=== PATIENT | male | born 1940 | race Caucasian/White ===

== ENCOUNTER 2017-07-15 14:25 | Inpatient (IN) | payer MEDICARE ==
--- NOTE | 2017-07-15 15:20 | RAD ---
HISTORY: Shortness of breath COMPARISONS: None VIEWS: 1: frontal portable view of the chest at 3:00 PM FINDINGS: LINES AND TUBES: None. CARDIOMEDIASTINAL SILHOUETTE: The cardiomediastinal silhouette is normal for portable technique. PLEURA: The costophrenic angles are sharp. No pleural abnormalities are noted. LUNG PARENCHYMA: There is patchy alveolar opacification of the right upper lung and right lower lung. ABDOMEN: The upper abdomen is clear. There is no subphrenic gas. BONES AND SOFT TISSUES: No bone or soft tissue abnormalities are noted. IMPRESSION: PATCHY AIRSPACE DISEASE OF THE RIGHT LUNG. RECOMMEND FOLLOW-UP UNTIL RESOLUTION TO EXCLUDE UNDERLYING PULMONARY PARENCHYMAL PATHOLOGY.
[2017-07-15 16:07] LABS: INR 1.48 (0.77-1.02)
[2017-07-15 16:11] LABS: EGFR Non-African American 21.8 (>60)
[2017-07-15 16:17] LABS: ABS Basophils 0.1 10^3/ul (0-0.2); ABS Eosinophils 0 10^3/ul (0-0.6); ABS Lymphocytes 1.1 10^3/ul (1.0-4.8); ABS Monocytes 1.1 10^3/ul (0-0.8); ABS Neutrophils 18.7 10^3/ul (1.5-7.7); ABS Nucleated RBC 0 10^3/ul; Eosinophil % 0.1 % (0-6); Hematocrit 30 % (42-52); Hemoglobin 9.6 g/dl (14.0-18.0); Mean Corpuscular HGB Conc 32 g/dl (31-36); Mean Corpuscular Hemoglobin 33 pg (27-31); Mean Corpuscular Volume 102 fL (80-94); Mean Platelet Volume 9 um3 (7.4-10.4); Nucleated Red Blood Cells % 0.1; Platelet Count 608 10^3/ul (150-450); Red Blood Count 2.91 10^6/ul (4.0-5.4); Red Cell Distribution Width 23 % (10.5-15)
[2017-07-15] MEDS ORDERED: Vancomycin(*) 1,000 MG in NS 0.9% 250 ML* 250 ML IVPB ONE (18:05)
[2017-07-15] MEDS ORDERED: Vancomycin per Pharmacy* NOTE FOLLOW UP PRN (18:12)
[2017-07-15] MEDS ORDERED: Dextrose 50% Syringe 50 ML* 25 GM/50 ML SYRINGE IV PUSH PRN ×2 (18:18→19:39)
[2017-07-15] MEDS ORDERED: NS 0.9% 1000 ML* 1,000 ML IV ONE (18:24)
[2017-07-15 19:10] LABS: EGFR Non-African American 20.3 (>60)
[2017-07-15] MEDS ORDERED: Insulin REGULAR(*) 1 UNITS UNIT IV PUSH ONE (19:39)
[2017-07-15] MEDS ORDERED: Calcium Gluconate INJ* 1 GM in NS 0.9% 100 ML* 100 ML IVPB ONE (19:41)
[2017-07-15] MEDS ORDERED: NS 0.9% 1000 ML* 2,000 ML IV ONE (19:41)
[2017-07-15] MEDS ORDERED: D5W 50 ML BAG* 50 ML ONE (20:05)
--- NOTE | 2017-07-15 20:06 | ED ---
Jorge Jordan Jennifer, scribed for Clarke Franco MD on 07/15/17 at 1450 . Shortness of Breath - HPI Summary HPI Summary: The patient is a 77 year old male who presents with shortness of breath that has worsened for the past week. The patient was in the ICU for 11 days with pneumonia and recently released three days ago. He complains that he has gotten weaker since he left the ICU and any movement aggravates his shortness of breath. The patient additionally complains of some swelling in the legs to the knees that has gotten better. - History of Current Complaint Chief Complaint: EDShortnessOfBreath Time Seen by Provider: 07/15/17 14:38 Hx Obtained From: Patient Onset/Duration: Lasting Weeks - one week, Still Present, Worse Since Timing: Constant Current Severity: Moderate Aggrevating Factors: Movement Alleviating Factors: Nothing Associated Signs & Symptoms: Negative - Fever, Edema - Allergy/Home Medications Allergies/Adverse Reactions: Allergies Allergy/AdvReac Type Severity Reaction Status Date / Time No Known Allergies Allergy Verified 07/15/17 16:03 Home Medications: Home Medications Aspirin Low Dose CHEW TAB* [Aspirin Low Dose TAB*] 81 mg PO DAILY 07/15/17 [ History Confirmed 07/15/17] Atorvastatin* [Lipitor*] 20 mg PO DAILY 07/15/17 [History Confirmed 07/15/17] Cefpodoxime (NF) [Vantin 200 MG TAB (NF)] 200 mg PO BID 07/15/17 [History Confirmed 07/15/17] Folic Acid TAB* [Folvite TAB*] 1 mg PO DAILY 07/15/17 [History Confirmed ] Glipizide/Metformin HCl [Glipizide/Metformin HCl 2.5-250 mg] 1 tab PO BID [History Confirmed 07/15/17] Metoprolol Succinate XL TAB* [Toprol XL TAB*] 50 mg PO DAILY 07/15/17 [History Confirmed 07/15/17] Nitroglycerin TAB 0.4 MG* 0.4 mg SL Q5M PRN 07/15/17 [History Confirmed 07/15/17 ] Pantoprazole TAB (NF) [Protonix TAB (NF)] 40 mg PO DAILY 07/15/17 [History Confirmed 07/15/17] Sitagliptin (NF) [Januvia (NF)] 50 mg PO DAILY 07/15/17 [History Confirmed 07/15] Torsemide TAB* [Demadex*] 10 mg PO DAILY 07/15/17 [History Confirmed 07/15/17] PMH/Surg Hx/FS Hx/Imm Hx Endocrine/Hematology History: Reports: Hx Diabetes Cardiovascular History: Denies: Hx Hypertension - Immunization History Date of Tetanus Vaccine: UTD Date of Influenza Vaccine: UTD Infectious Disease History: No Infectious Disease History: Denies: Traveled Outside the [place] in Last 30 Days - Family History Known Family History: Positive: Hypertension, Diabetes - Social History Alcohol Use: None Substance Use Type: Reports: None Smoking Status (MU): Former Smoker Review of Systems Positive: Other - Feeling weak. Negative: Fever Positive: Shortness Of Breath Positive: Edema All Other Systems Reviewed And Are Negative: Yes Physical Exam - Summary Physical Exam Summary: Appearance: The patient is pale in no acute distress and in no acute pain. Skin: The skin is warm and dry and skin color is pale. HEENT: ~The head is normocephalic and atraumatic. The pupils are equal and reactive. The conjunctivae are clear and without drainage. ~Nares are patent and without drainage. ~Mouth reveals moist mucous membranes and the throat is without erythema and exudate. ~The external ears are intact. The ear canals are patent and without drainage. The tympanic membranes are intact. Neck: the neck is supple with full range of motion and non-tender. There are no carotid bruits. ~There is no neck vein distension. Respiratory: Chest is non-tender. ~There are crackles at both bases. Cardiovascular: The patient is tachypnic but not tachycardic. Heart is regular rate and rhythm. ~There is no murmur or rub auscultated. ~~There is no peripheral edema and pulses are symmetrical and equal. Abdomen: The abdomen is soft and non-tender. ~There are normal bowel sounds heard in all four quadrants and there is no organomegaly palpated. Musculoskeletal: There is no back tenderness noted. ~Extremities are non-tender with full range of motion. ~There is good capillary refill. ~There is no peripheral edema or calf tenderness elicited. Neurological: Patient is alert and oriented to person, place and time. ~The patient has symmetrical motor strength in all four extremities. ~Cranial nerves are grossly intact. Deep tendon reflexes are symmetrical and equal in all four extremities. Psychiatric: The patient has an appropriate affect and does not exhibit any anxiety or depression. Triage Information Reviewed: Yes Vital Signs On Initial Exam: Initial Vitals Temp Pulse Resp BP Pulse Ox 98.1 F 86 30 102/50 100 1218 14:31 18 14:31 18 14:31 18 14:31 18 14:31 Vital Signs Reviewed: Yes Diagnostics - Vital Signs Vital Signs Temp Pulse Resp BP Pulse Ox 07/15/17 14:31 98.1 F 86 30 102/50 100 - Laboratory Lab Results: Lab Results 07/15/17 07/15/17 07/15/17 Range/Units 15:09 15:09 15:09 WBC 21.0 H (3.5-10.8) 10^3/ul RBC 2.91 L (4.0-5.4) 10^6/ul Hgb 9.6 L (14.0-18.0) g/dl Hct 30 L (42-52) % MCV 102 H (80-94) fL MCH 33 H (27-31) pg MCHC 32 (31-36) g/dl RDW 23 H (10.5-15) % Plt Count 608 H (150-450) 10^3/ul MPV 9 (7.4-10.4) um3 Neut % (Auto) 89.2 H (38-83) % Lymph % (Auto) 5.0 L (25-47) % Centre % (Auto) 5.4 (1-9) % Eos % (Auto) 0.1 (0-6) % Baso % (Auto) 0.3 (0-2) % Absolute Neuts (auto) 18.7 H (1.5-7.7) 10^3/ul Absolute Lymphs (auto) 1.1 (1.0-4.8) 10^3/ul Absolute Monos (auto) 1.1 H (0-0.8) 10^3/ul Absolute Eos (auto) 0 (0-0.6) 10^3/ul Absolute Basos (auto) 0.1 (0-0.2) 10^3/ul Absolute Nucleated RBC 0 10^3/ul Nucleated RBC % 0.1 INR (Anticoag Therapy) (0.77-1.02) D-Dimer, Quantitative (Less Than 230) ng/mL Sodium 133 (133-145) mmol/L Potassium 5.9 H (3.5-5.0) mmol/L Chloride 96 L (101-111) mmol/L Carbon Dioxide 14 L* (22-32) mmol/L Anion Gap 23 H (2-11) mmol/L BUN 59 H (6-24) mg/dL Creatinine 2.84 H (0.67-1.17) mg/dL Est GFR ( Amer) 28.0 (>60) Est GFR (Non-Af Amer) 21.8 (>60) BUN/Creatinine Ratio 20.8 H (8-20) Glucose 321 H (70-100) mg/dL Lactic Acid (0.5-2.0) mmol/L Calcium 9.7 (8.6-10.3) mg/dL Total Bilirubin 2.90 H (0.2-1.0) mg/dL AST 542 H (13-39) U/L ALT 332 H (7-52) U/L Alkaline Phosphatase 90 (34-104) U/L Troponin I 0.78 H* (<0.04) ng/mL C-Reactive Protein 33.82 H (< 5.00) mg/L B-Natriuretic Peptide 3684 H ( - 100) pg/mL Total Protein 7.4 (6.4-8.9) g/dL Albumin 3.6 (3.2-5.2) g/dL Globulin 3.8 (2-4) g/dL Albumin/Globulin Ratio 0.9 L (1-3) 07/15/17 07/15/17 Range/Units 15:09 15:09 WBC (3.5-10.8) 10^3/ul RBC (4.0-5.4) 10^6/ul Hgb (14.0-18.0) g/dl Hct (42-52) % MCV (80-94) fL MCH (27-31) pg MCHC (31-36) g/dl RDW (10.5-15) % Plt Count (150-450) 10^3/ul MPV (7.4-10.4) um3 Neut % (Auto) (38-83) % Lymph % (Auto) (25-47) % Centre % (Auto) (1-9) % Eos % (Auto) (0-6) % Baso % (Auto) (0-2) % Absolute Neuts (auto) (1.5-7.7) 10^3/ul Absolute Lymphs (auto) (1.0-4.8) 10^3/ul Absolute Monos (auto) (0-0.8) 10^3/ul Absolute Eos (auto) (0-0.6) 10^3/ul Absolute Basos (auto) (0-0.2) 10^3/ul Absolute Nucleated RBC 10^3/ul Nucleated RBC % INR (Anticoag Therapy) 1.48 H (0.77-1.02) D-Dimer, Quantitative > 1050 H (Less Than 230) ng/mL Sodium (133-145) mmol/L Potassium (3.5-5.0) mmol/L Chloride (101-111) mmol/L Carbon Dioxide (22-32) mmol/L Anion Gap (2-11) mmol/L BUN (6-24) mg/dL Creatinine (0.67-1.17) mg/dL Est GFR ( Amer) (>60) Est GFR (Non-Af Amer) (>60) BUN/Creatinine Ratio (8-20) Glucose (70-100) mg/dL Lactic Acid 11.5 H* (0.5-2.0) mmol/L Calcium (8.6-10.3) mg/dL Total Bilirubin (0.2-1.0) mg/dL AST (13-39) U/L ALT (7-52) U/L Alkaline Phosphatase (34-104) U/L Troponin I (<0.04) ng/mL C-Reactive Protein (< 5.00) mg/L B-Natriuretic Peptide ( - 100) pg/mL Total Protein (6.4-8.9) g/dL Albumin (3.2-5.2) g/dL Globulin (2-4) g/dL Albumin/Globulin Ratio (1-3) Result Diagrams: 07/15/17 15:09 07/15/17 18:32 Lab Statement: Any lab studies that have been ordered have been reviewed, and results considered in the medical decision making process. - Radiology CXR Xray Interpretation: Positive (See Comments) - PATCHY AIRSPACE DISEASE OF THE RIGHT LUNG. RECOMMEND FOLLOW-UP UNTIL RESOLUTION TO EXCLUDE UNDERLYING PULMONARY PARENCHYMAL PATHOLOGY. Dr. Franco has reviewed this report. Radiology Interpretation Completed By: Radiologist - EKG 15:59 Cardiac Rate: NL EKG Rhythm: Sinus Rhythm - 79 BPM EKG Interpretation: RBBB, diffuse ST depressions Course/Dx - Course Course Of Treatment: Mr. Hinson presented with SOB after a recent admission in [place]. He was tachypneic on arrival but his lung exam revealed on bibasilar crackles. Labs showed that he was quite acidotic with new onset of renal failure and tranaminase elevations. The source of his problems was not clear. He is being admitted to the hospitalist service. Dr. Hamilton came and performed an echo in the ED. - Diagnoses Provider Diagnoses: Metabolic acidosis, Acute renal failure, Elevated transaminase level - Critical Care Time Critical Care Time: 30-74 min Discharge - Discharge Plan Condition: Good Disposition: ADMITTED TO [facility] The documentation as recorded by the Jorge armenta Jennifer accurately reflects the service I personally performed and the decisions made by me, Clarke Franco MD.
[2017-07-15] MEDS ORDERED: Sodium Polystyrene ORAL.SOL* 15 GM/60 ML BTL PO ONE (20:09)
[2017-07-15] MEDS: Cefepime(*) 1 GM in D5W 50 ML BAG* 50 ML IVPB SCH (20:10)
[2017-07-15] MEDS ORDERED: Sodium Bicarbonate 8.4% IV* 50 ML VIAL IV ONE ×2 (20:10→20:13)
--- NOTE | 2017-07-15 20:26 | RAD ---
INDICATION: Sepsis COMPARISON: None. TECHNIQUE: Multidetector CT images of the chest, abdomen and pelvis were obtained from the lung apices to the ischial tuberosities without intravenous contrast . CHEST: There is a large right lung base pleural effusion. There is pleural-based density along the anterior margin of the right lung apex. Lungs exhibit diffuse groundglass opacification as well as centrilobular emphysematous changes. There is bronchiectatic dilatation of the airways. There is no mediastinal or hilar lymphadenopathy. There is coarse calcification of the coronary arteries, aortic ring and arch of the aorta. This calcification extends into the proximal portions of the great vessels branching off of the arch of the aorta. ABDOMEN & PELVIS: There is a small amount of perihepatic fluid. There are no focal liver masses. The spleen, pancreas and adrenal glands are grossly normal in appearance. The gallbladder is normal. The right kidney is normal in appearance without focal mass, calcification or signs of hydronephrosis. There is either scarring or surgical material adjacent to the superior and anterior portion of the right kidney. There is no definite hydronephrosis bilaterally. A Isabel catheter is in the urinary bladder decompressing the bladder and preventing more thorough evaluation. Evaluation of the gastrointestinal tract is limited without oral contrast. The small and large bowel are not pathologically dilated. There is thickening of the colon wall involving the ascending colon to the hepatic flexure (axial image 93) measuring up to 1.1 cm in thickness. More distally there is gas and stool in the colon. There are rectosigmoid diverticula but none exhibit focal inflammatory change. The appendix is likely identified in the base of the cecum measuring 5 mm in diameter (axial image 96). There is infiltration of the peritoneal fat adjacent to the ascending colon and hepatic flexure. There is scattered peritoneal ascites. There is more confluent ascites in the deep pelvis. There are scattered peritoneal soft tissue nodules measuring up to 9 mm in greatest dimension (for example axial image 76). The prostate is not well visualized. There is an infrarenal abdominal aortic aneurysm measuring approximately 3.5 x 3.3 cm in greatest dimension, most reliably measured in the sagittal and coronal planes (sagittal image 40 and coronal image 39). There is coarse atherosclerotic calcification of the abdominal aorta extending into the bilateral iliac arteries and seen as far as the bilateral common femoral arteries. There are no sinister bone lesions. IMPRESSION: 1. There is pleural-based density along the anterior margin of the right lung apex with a moderate right-sided pleural effusion. There are groundglass opacifications throughout the emphysematous lungs. Pneumonia versus right upper lobe malignancy should be considered in the differential diagnosis. Alternatively fluid overload/congestive heart failure could yield groundglass opacification and right pleural effusion. 2. Scattered peritoneal ascites as well as peritoneal soft tissue nodules. There is a segment of wall thickening involving the ascending colon and hepatic flexure. Colon cancer is a diagnostic possibility. Alternatively infectious, inflammatory or an ischemic etiology could also be considered. 3. Calcified atherosclerosis of the visualized arterial system including a 3.5 cm infrarenal abdominal aortic aneurysm. 4. Additional chronic, degenerative and possibly postsurgical changes described in the body the report.
[2017-07-15] MEDS ORDERED: Insulin LISPRO* 1 UNITS UNIT SUBCUT SCH (21:00)
[2017-07-15] MEDS: Sodium Bicarbonate 8.4% IV* 100 MEQ in D5W 1000 ML BAG* 1,000 ML IVPB SCH (21:19)
[2017-07-15] MEDS ORDERED: Sodium Polystyrene ORAL.SOL* 15 GM/60 ML BTL ONE (21:27)
--- NOTE | 2017-07-15 21:49 | HP ---
HISTORY AND PHYSICAL: DATE OF ADMISSION: 07/15/17 PRIMARY CARE PROVIDER: Dr. Garcia in [place], [place]. HEALTHCARE PROXY: His son as well as his daughter, Nathaly Benitez. CODE STATUS: Full. SOURCE OF INFORMATION: History obtained from interview with the son and patient , review of partial past medical records. RELIABILITY: Fair. HISTORY OF PRESENT ILLNESS: This is a 77-year-old man with past medical history of an DE in 1994 with no known stents, CHF, type 2 diabetes, hypertension, hyperlipidemia, and history of bladder cancer, status post removal and currently receiving BCG therapy, who had been visiting his daughter in [place] approximately 2 weeks prior to presentation, started to notice increasing lower extremity edema, then developed shortness of breath and fatigue , who presented to [facility] in [place], where he was critically ill and admitted to the intensive care unit, required intubation. The patient' s discharge instructions from that time indicate he had sepsis, pneumonia, CHF, acute kidney failure, diabetes and anemia. Son indicates that he was on broad spectrum antibiotics, but they were frustrated because they could not culture any specific bacteria. He was extubated of CPAP, was performing well with physical therapy and discharged on the after being admitted on 07/06/17. He is now in [place] with his son where he was seen by visiting nursing, who noticed him to have shortness of breath again and be weak and was sent to [facility] for evaluation. The patient denies any nausea, vomiting, chest pain, diarrhea, constipation, bright red blood per rectum, melena, or headache. He has noted increasing lower extremity swelling since discharge as well as orthopnea, but no cough, fevers, chills, night sweats. No burning with urination, but has noted urinary frequency as well as urgency in the absence of any foul odor. In the emergency room, he was found with profound lactic acidosis and the hospitalist service was consulted for admission. PAST MEDICAL HISTORY: Recent admission for sepsis and pneumonia, CHF, acute kidney failure, diabetes and anemia. Past medical history further includes type 2 diabetes, CHF, CAD with an DE in 1994. No stenting. Hyperlipidemia, hypertension, bladder cancer, status post removal, currently receiving BCG, partial nephrectomy. MEDICATIONS: From his discharge on the include: 1. Aspirin 81 mg daily. 2. Atorvastatin 20 mg daily. 3. Cefpodoxime 200 mg twice daily. 4. Folic acid daily. 5. Combination glipizide/metformin 5/500 one tab twice daily. 6. Metoprolol XL 50 mg daily. 7. Sublingual nitroglycerin. 8. Pantoprazole 40 mg daily. 9. Sitagliptin 50 mg daily. 10. Torsemide 10 mg daily. ALLERGIES: No known drug allergies. FAMILY HISTORY: Mother and father with CAD and diabetes. SOCIAL HISTORY: Many years of smoking, potentially approximately 60 pack per year, quit in April. Previous heavy drinking in his 30s. REVIEW OF SYSTEMS: As per HPI, otherwise all other systems negative. PHYSICAL EXAMINATION GENERAL: Ill-appearing man, lying 30 degrees in bed, interactive, tachypneic, but no apparent distress, talks in full sentences, not using accessory muscles of respiration. VITAL SIGNS: In the emergency room, blood pressure 105/60, heart rate 81, respiratory rate is between 40 and 50, 100% on 4 L oxygen. T-max is 98.1. HEENT: Oropharynx is clear. He has extremely dry mucous membranes. NECK: He has non-elevated JVD. No supraclavicular or cervical lymphadenopathy. LUNGS: His lungs are clear to auscultation. HEART: His heart rate is tachycardic without appreciable murmur, rubs, or gallops. ABDOMEN: Soft, nontender, nondistended. EXTREMITIES: Cool with delayed cap refill. 1 to 2+ lower extremity edema to above his knees. NEUROLOGIC: He is A and O x3. His cranial nerves II through XII are intact. He has no apparent anxiety, agitation, or depression. LABORATORY DATA: Labs reviewed. White blood cell count is 21,000. All labs compared to the 9th of discharge, on discharge, it was 8.0; hemoglobin 9.6, on discharge 8.3; platelets 608,000, on discharge 442. INR is 1.48, on discharge 1.5. BUN is 59, creatinine is 2.8, on discharge 27 and 1.6. Bicarb is 14, on discharge 26. Lactic acid is 11.5. Total bilirubin 2.9, AST 543, ALT 332. Troponin I 0.78, BNP 363,684. Pro-BNP on previous hospital stay was 8700. DIAGNOSTIC DATA: Reviewed. Chest x-ray; patchy airspace disease of the right lung. Recommend followup until resolution. EKG: The patient has [address] elevations in V1, aVR, 2 mm in V2, 1 mm in V3 with [address] depressions in V5, V6, II, III, aVF and lead 1. No prior for comparison. ASSESSMENT AND PLAN: This is a 77-year-old man, recent hospital stay from 07/06 through 07/12/17 at [facility], where he was presumably treated for sepsis secondary to pneumonia complicated by respiratory failure, now presenting with profound tachypnea/acute respiratory failure, worsening kidney failure, increased liver enzymes, and profound lactic acidosis. Sepsis. Concern for sepsis given elevated leukocytosis, tachypnea, lactic acidosis. Blood cultures collected, collecting urine now, check for flu. Start vancomycin with cefepime. The patient was at least on vancomycin on the last hospital stay given his vanco levels that are part of his lab results. 1 L of fluid at this time, although his fluid status is tenuous and I am concerned that he may be in cardiogenic shock. CT chest as well as CT abdomen and pelvis. Respiratory failure. ABG is pending. Placed on BIPAP given his profound tachypnea. Dr. Hamilton to assist with limited bedside echo to evaluate EF. I am concerned that the patient is in cardiogenic shock at this point, although difficult to make that assumption without further evidence at this time. More information will be forthcoming with repeat lactic acid, troponin, and limited echocardiogram. Lactic acidosis, potentially contributing with metformin with renal failure. Holding metformin, repeat lactic acid now 1 L fluid now. I am holding additional fluid beyond that liter for aforementioned above reasons of unknown EF and concern for cardiogenic shock. Repeat BMP with next lactic to evaluate bicarbonate level. pH pending with current ABG that has been collected. Acute kidney injury. Again, potentially cardiorenal, although urinary tract infection is potential given frequency and urgency as well as prerenal in the setting of decreased fluid intake and recent diuresis. Placing Isabel catheter, 1 L fluid now, follow. Elevated troponins. I suspect demand, although EKG is nonreassuring. Follow troponin. We will not heparinize at this time unless troponin continues to rise. The patient has been chest pain free for the entirety of his presentation. Elevated liver enzymes, appears to be a congestive hepatopathy. We will check CT abdomen and pelvis as he cannot receive ultrasound of right upper quadrant at this time as he is not fasting. DVT prophylaxis. Heparin subcu. [id number]/[facility] #: [id number] MTDD
[2017-07-15] MEDS: Heparin VIAL(*) 5000 UNITS/ML VIAL (FIVE THOUSAND) SUBCUT SCH (22:27)
[2017-07-15 23:35] LABS: Hematocrit 25 % (42-52); Hemoglobin 8.2 g/dl (14.0-18.0); Mean Corpuscular HGB Conc 33 g/dl (31-36); Mean Corpuscular Hemoglobin 34 pg (27-31); Mean Corpuscular Volume 103 fL (80-94); Mean Platelet Volume 9 um3 (7.4-10.4); Platelet Count 430 10^3/ul (150-450); Red Blood Count 2.45 10^6/ul (4.0-5.4); Red Cell Distribution Width 23 % (10.5-15); White Blood Count 17.5 10^3/ul (3.5-10.8)
--- NOTE | 2017-07-15 23:58 | PN ---
Progress Note - Progress Note Date of Service: 07/15/17 Note: Sign out from Dr. Lopez - Repeat labs showed hyperkalemia and lactic acidosis worsening from earlier labs. Calcium gluconate, D50, insulin and kayexylate ordered. Spoke with Dr. Kaminski and Dr. Alba - thought was that this may be metformin toxicity driving the lactate. Patient did have an episode of hypoxia and increase in RR when moving onto bedpan. S/s improved with adjustment in BiPAP settings. Two amps of bicarb and bicarb drive started on patient. Likely underlying CHF and ?PNA vs malignancy. Needs outpatient workup for abnormalities on bowel wall thickening - patient had colonoscopy a year ago. Reviewed results with son and patient. Son states pleural effusion was there before, may worsen with IVFs and may benefit from therapuetic/diagnostic thoracentesis. Will attempt transition to salter if he removes stable from a respiratory standpoint. Monitor labs [id number].
[2017-07-16] MEDS ORDERED: Insulin LISPRO* 1 UNITS UNIT SUBCUT ONE ×3 (00:21→21:10)
[2017-07-16] MEDS ORDERED: Dextrose 50% Syringe 50 ML* 25 GM/50 ML SYRINGE IV PUSH PRN ×4 (00:21→21:10)
[2017-07-16] MEDS ORDERED: Sodium Polystyrene ORAL.SOL* 15 GM/60 ML BTL PO SCH (03:00)
[2017-07-16 03:43] LABS: EGFR Non-African American 22.3 (>60)
[2017-07-16] MEDS: Heparin VIAL(*) 5000 UNITS/ML VIAL (FIVE THOUSAND) SUBCUT SCH ×3 (05:58→22:43)
[2017-07-16] MEDS: Cefepime(*) 1 GM in D5W 50 ML BAG* 50 ML IVPB SCH ×2 (05:58→18:27)
[2017-07-16] MEDS ORDERED: Vancomycin Random Level* NOTE FOLLOW UP ONE (06:00)
[2017-07-16 06:56] LABS: ABS Basophils 0.1 10^3/ul (0-0.2); ABS Eosinophils 0 10^3/ul (0-0.6); ABS Lymphocytes 0.9 10^3/ul (1.0-4.8); ABS Monocytes 0.6 10^3/ul (0-0.8); ABS Neutrophils 14.1 10^3/ul (1.5-7.7); ABS Nucleated RBC 0 10^3/ul; Eosinophil % 0.1 % (0-6); Hematocrit 23 % (42-52); Hemoglobin 7.7 g/dl (14.0-18.0); Lymphocyte % 5.7 % (25-47); Mean Corpuscular HGB Conc 34 g/dl (31-36); Mean Corpuscular Hemoglobin 33 pg (27-31); Mean Corpuscular Volume 99 fL (80-94); Mean Platelet Volume 9 um3 (7.4-10.4); Nucleated Red Blood Cells % 0.1; Platelet Count 387 10^3/ul (150-450); Red Blood Count 2.32 10^6/ul (4.0-5.4); Red Cell Distribution Width 22 % (10.5-15); White Blood Count 15.6 10^3/ul (3.5-10.8)
[2017-07-16 07:03] LABS: INR 1.65 (0.77-1.02)
[2017-07-16 07:12] LABS: EGFR Non-African American 22.5 (>60)
[2017-07-16] MEDS ORDERED: Vancomycin 1500 MG IV - x ONCE IVPB ONE ×2 (09:00)
--- NOTE | 2017-07-16 09:50 | ECHO ---
Patient: RAE MACHADO [facility] Rec#: [id number] : 1940 Date: 07/16/2017 Age: 77y Height: 175.3 cm / 69.0 in Weight: 70.3 kg / 154.9 lbs Sex: M BSA: 1.85 Room#: ICU 4 Admit Date#: 07/15/2017 Type: Inpatient Referring: Marquise Lopez MD Reading: Phillip Hamilton MD Tax Auditor: Anat Romeo RN RDCS CC: Mike Holly MD Transthoracic Echocardiogram Indication: CHF BP: 92/48 HR: 82 Rhythm: NSR with PACs Findings History: CAD, [place] in 1994, CHF, DM, HTN, HLD, former smoker, recent pneumonia Technical Comments: The study quality is fair. The study is technically limited due to the patient's smoking history. Completed at 0930. Left Ventricle: The left ventricular chamber size is mildly dilated. There is no left ventricular hypertrophy. There are multiple regional wall motion abnormalities. There is severely decreased left ventricular systolic function. The estimated ejection fraction is 25-30%. Abnormal left ventricular diastolic function is observed. Left Atrium: The left atrium is mildly dilated. Right Ventricle: The right ventricular cavity size is normal. The right ventricular global systolic function is low normal. Right Atrium: The right atrium is mildly dilated. Aortic Valve: The aortic valve structure is not well visualized. The aortic valve is trileaflet. The aortic valve leaflets are moderately thickened. Systolic excursion of the aortic valve cusps is reduced. There is mild to moderate aortic regurgitation. There is moderate aortic stenosis. The mean gradient of the aortic valve is 8.4 mmHg. The peak instantaneous gradient of the aortic valve is 15 mmHg. The aortic valve area, by peak velocities, is calculated at 1 cm2. The aortic valve area, by VTI's, is calculated at 0.9 cm2. The measured aortic regurgitation pressure half-time is 448 msec. Mitral Valve: The mitral valve leaflets are mildly thickened. There is moderate to severe mitral regurgitation. There is no evidence of mitral stenosis. Tricuspid Valve: The tricuspid valve leaflets are normal. There is moderate to severe tricuspid regurgitation. There is evidence of severe pulmonary hypertension. There is no tricuspid stenosis. Pulmonic Valve: The pulmonic valve structure is not well visualized. There is a trace pulmonic regurgitation. There is no pulmonic stenosis. Pericardium: There is no significant pericardial effusion. Aorta: The ascending aorta is not well visualized. The aortic arch is not well visualized. There is no dilation of the aortic root. Pulmonary Artery: The main pulmonary artery is not well visualized. Venous: The inferior vena cava is dilated. There is less than 50% respiratory change in the inferior vena cava dimension. Summary: There was not any prior study for comparison. Conclusions There is severely decreased left ventricular systolic function. There are multiple regional wall motion abnormalities. The estimated ejection fraction is 25-30%. The right ventricular global systolic function is low normal. The right atrium is mildly dilated. Systolic excursion of the aortic valve cusps is reduced. There is moderate aortic stenosis. The mean gradient of the aortic valve is 8.4 mmHg. The aortic valve area, by VTI's, is calculated at 0.9 cm2. There is moderate to severe mitral regurgitation. There is moderate to severe tricuspid regurgitation. There is evidence of severe pulmonary hypertension. There is no significant pericardial effusion. Measurements Name Value Normal Range RVDdMajor (2D) 3.4 cm (2.2 - 4.4) RVAW (2D) 0.7 cm (0.2 - 0.5) RAd ISD 4CH 5 cm (3.4 - 4.9) RA (A4C)W 5.1 cm (2.9 - 4.6) IVSd (2D) 0.9 cm (0.6 - 1) LVPWd (2D) 1 cm (0.6 - 1) LVIDd (2D) 6 cm (3.6 - 5.4) LVIDs (2D) 5.4 cm - LV FS (2D) 10 % (25 - 45) Aortic Annulus 1.8 cm (1.4 - 2.6) Ao root diameter (2D) 2.8 cm (2.1 - 3.5) LA dimension (AP) 2D 3.4 cm (2.3 - 3.8) LAd ISD 4CH 5.8 cm (2.9 - 5.3) LA ISD 4CH W 4 cm (2.5 - 4.5) Name Value Normal Range LA ESV SP 4CH (A/L) 58 ml - LA ESV SP 2CH (A/L) 84 ml - LA ESV BP (A/L) 76 ml - LA ESV BP (A/L) index 41 ml/m2 - LA ESV SP 4CH (MOD) 54 ml - LA ESV SP 2CH (MOD) 79 ml - LV mass (2D) 234.2 g - LV mass (2D) index 126.59 g/m2 - Name Value Normal Range MV E-wave Vmax 1.1 m/sec - MV deceleration time 178 msec - MV A-wave Vmax 0.92 m/sec - MV E:A ratio 1.2 ratio - LV septal e' Vmax 0.04 m/sec - LV lateral e' Vmax 0.04 m/sec - LV E:e' septal ratio 27.5 ratio - LV E:e' lateral ratio 27.5 ratio - Name Value Normal Range AV Vmax 1.9 m/sec - AV VTI 39 cm - AV peak gradient 15 mmHg - AV mean gradient 8.4 mmHg - LVOT diameter 2 cm - LVOT Vmax 0.59 m/sec - LVOT VTI 11.3 cm - LVOT peak gradient 1.4 mmHg - LVOT mean gradient 0.73 mmHg - DOI (VTI) 0.29 ratio - DOI (Vmax) 0.31 ratio - SV LVOT 35.3 ml - CO LVOT 2.9 l/min - Cardiac index 1.6 l/min/m2 - MAXWELL (continuity Vmax) 1 cm2 - MAXWELL (continuity VTI) 0.9 cm2 - AR PHT 448 msec - Name Value Normal Range MR Vmax 4.58 m/sec - MR VTI 144 cm - MR volume (PISA) 57.6 ml - MR flow (PISA) 183 ml/sec - MR ERO 0.4 cm2 - MR PISA radius 0.9 cm - MR alias Vmax 36 cm/sec - Name Value Normal Range TR Vmax 4.2 m/sec - TR peak gradient 71 mmHg - RAP 15 mmHg - RVSP 86 mmHg - IVC diameter 2.6 cm - Name Value Normal Range PV Vmax 0.74 m/sec -
[2017-07-16] MEDS: Insulin GLARGINE(*) 1 UNITS UNIT SUBCUT SCH (09:56)
[2017-07-16] MEDS: Insulin LISPRO* 1 UNITS UNIT SUBCUT SCH ×6 (09:57→18:26)
[2017-07-16] MEDS: Atorvastatin* 20 MG TAB PO SCH (09:58)
[2017-07-16] MEDS: Aspirin Low Dose CHEW TAB* 81 MG PO SCH (09:58)
[2017-07-16] MEDS: Folic Acid TAB* 1 MG PO SCH (09:58)
[2017-07-16] MEDS: Omeprazole CAP* 20 MG PO SCH (09:58)
--- NOTE | 2017-07-16 11:08 | RAD ---
INDICATION: Lower extremity swelling evaluate for deep venous thrombosis. COMPARISON: There are no prior studies available for comparison. TECHNIQUE: Multiple real-time, color flow and Doppler tracings of both lower extremities were obtained. FINDINGS: The common femoral, femoral, profunda femoral and popliteal veins all demonstrate normal compressibility, augmentation with compression and phasic response with respiration. The posterior tibial and peroneal veins demonstrate normal compressibility and augmentation with compression. IMPRESSION: NO EVIDENCE FOR DEEP VENOUS THROMBOSIS.
[2017-07-16] MEDS ORDERED: Sodium Bicarbonate 8.4% IV* 100 MEQ in D5W 1000 ML BAG* 1,000 ML IVPB SCH (11:39)
--- NOTE | 2017-07-16 11:49 | PN ---
Progress Note - Progress Note Date of Service: 07/16/17 Note: CCM Progress Note Discussed by phone twice with dr William last PM Patient sitting up vigorously eating his breakfast Reports...."feel a hell of a lot better than I did yesterday" SBP 90-100 HR 78 RR 26 SpO2 100 (NC) Skin no diaphoresis, no cyanosis Sclerae anicteric, pupils equal Oral mucosa pink Neck supple Lungs with good air entry bilat, rare fine wheeze Cor RRR no rub, no murmur Abd soft, active, nontender Ext no signif edema, no cord, no calf tenderness LUE with PIV x2 K 3.9 BUN/Creat 59/2.6 Alb 2.7 Lact 4.5 WBC 15.6 Hgb 7.7 Plt 387 INR 1.65 Venous Dopplers of legs...no DVT ECHO LVEF 25-30%, RV function at low end of normal, pulmonary HTN, mod-severe MR, mod aortic stenosis IMP: Respiratory Distress...function of lactic acidosis and frailty with poor clinical reserve in face of suspected pneumonia and cardiomyopathy.....subsided Lactic Acidosis resolving gradually....suspect hypovolemia with cardiomyopathy plus/minus Metformin toxicity in face of AMANDA AMANDA with hyperkalemia and metabolic acidosis....improved indices with hydration including bicarb gtt Hyperkalemia....resolved Possible RUL pneumonia....on broad Abx, leucocytosis subsided...history of recent pneumonia and respiratory failure Anemia...suspect chronic...adequate Hgb 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 team T>30 min, [facility] services rendered
[2017-07-16 16:17] LABS: Hematocrit 23 % (42-52); Hemoglobin 7.9 g/dl (14.0-18.0); Mean Corpuscular HGB Conc 34 g/dl (31-36); Mean Corpuscular Hemoglobin 33 pg (27-31); Mean Corpuscular Volume 98 fL (80-94); Mean Platelet Volume 9 um3 (7.4-10.4); Platelet Count 408 10^3/ul (150-450); Red Blood Count 2.37 10^6/ul (4.0-5.4); Red Cell Distribution Width 22 % (10.5-15); White Blood Count 17.6 10^3/ul (3.5-10.8)
--- NOTE | 2017-07-16 20:19 | CONS ---
CC: Marquise Lopez MD * CARDIOLOGY CONSULTATION: DATE OF CONSULT: 07/16/17 REASON FOR CONSULT: Congestive heart failure, cardiomyopathy. HISTORY OF PRESENT ILLNESS: The patient is a 77-year-old gentleman with a history of diabetes, hypertension, coronary artery disease who was admitted to the hospital with congestive heart failure. The patient was admitted to the hospital in [place] at the end of June for a very similar presentation. The patient had a sudden onset of shortness of breath. He was brought to the emergency room, was intubated for his congestive heart failure. At that time, an echocardiogram showed an ejection fraction of 30%, mild mitral regurgitation , moderate to severe tricuspid regurgitation, mild aortic stenosis. He had a pulmonary artery pressure of 75 mmHg. The patient was treated for his congestive heart failure, placed on appropriate medications and discharged home. The patient is originally from [place]. He is currently visiting the [facility] with his son. The patient and son state that the patient was getting more short of breath yesterday morning and throughout the day became progressively dyspneic, finally brought him to the emergency room in the afternoon, where he was found to be in congestive heart failure. He was placed on BiPAP machine, given diuretics, which improved his respiratory status. Today , the patient is on 2 L oxygen. The patient is talking in full sentences. The patient states that he feels quite well. He feels much better than he did yesterday. He has an appetite. He denies any angina. He denies any palpitations. He denies any episodes of lightheadedness, dizziness or syncope. PAST MEDICAL HISTORY: Significant for: 1. Congestive heart failure. 2. Renal insufficiency. 3. Diabetes. 4. Bladder cancer. 5. Hypertension. 6. Hyperlipidemia. PAST SURGICAL HISTORY: 1. Partial nephrectomy. 2. Bladder tumor removals. During this recent hospitalization in [place], he was diagnosed with sepsis and pneumonia as well as congestive heart failure. MEDICATIONS: His outpatient medications include, 1. Aspirin 81 mg a day. 2. Atorvastatin 20 mg a day. 3. 200 mg b.i.d. 4. Glipizide/metformin 5/500 b.i.d. 5. Metoprolol 50 mg b.i.d. 6. Pantoprazole 40 mg a day. 7. Torsemide 10 mg a day. 8. Januvia 50 mg a day. ALLERGIES: No known drug allergies. FAMILY HISTORY: Noncontributory. SOCIAL HISTORY: The patient is a previous smoker. He quit over a year ago. Denies any alcohol. He is currently retired. He usually spends his sanchez in [place]. PHYSICAL EXAM: Height is 5 feet 10 inches, weight is 167 pounds, heart rate is 73, blood pressure 109/67, respiratory rate is 26, oxygen saturation 100% on 2 L , temperature 98.3. Sclerae anicteric. Oropharynx is pink without erythema. Carotids are 2+ without bruits. JVD is normal. Thyroid is normal. Cardiac Exam: S1, S2 with a 2/6 systolic ejection murmur heard best at the apex. PMI is difficult to assess. Lungs have decreased breath sounds at the right base. There is mild rhonchi. The patient denies any lower extremity edema. He is awake and alert and oriented. He moves all 4 extremities equally. DIAGNOSTIC STUDIES/LAB DATA: Yesterday, his white count was 21, hemoglobin 9.6 , hematocrit 30, platelet count 608. Chemistries were normal. BUN 59, creatinine 2.7, his creatinine at the [facility] was 1.9. Lactic acid was 11. AST and ALT are both elevated in the 600 range. Troponin level 0.66, 0.72 and 0.78. BNP is markedly elevated at 3600. EKG demonstrates wandering atrial pacemaker, old posterior wall myocardial infarction, nonspecific T-wave abnormalities. An echocardiogram today shows severely reduced LV systolic function, ejection fraction of 25% to 30% with global hypokinesis. He has moderate to severe mitral regurgitation, moderate to severe tricuspid regurgitation, mild to moderate aortic stenosis. Estimated PA systolic pressure of 80 mmHg. No pericardial effusion. Compared to his echocardiogram at the end of June, his mitral regurgitation and tricuspid regurgitation appear worse. IMPRESSION: This is a 77-year-old gentleman who is admitted to the hospital with congestive heart failure. He has a history of cardiomyopathy with an ejection fraction of 30%. Based on his echocardiogram, both his mitral regurgitation and tricuspid regurgitation are worse than they were 3 weeks ago. The patient also has severe worsening of his renal insufficiency. The patient is currently on a beta-nathan. He is also on diuretic therapy. The patient is not on KASSANDRA inhibitor or an ARB probably because of his renal insufficiency. The patient's blood pressure appears to be in good control. For now, the patient is being treated for his congestive heart failure. His respiratory status is improving greatly. I believe the patient was on reasonable medications when he was discharged from the hospital. It is unclear what caused the decompensation of his congestive heart failure. The patient clearly has worsening of his renal insufficiency which in turn can make his diuretic less effective. Again, the patient is not on an KASSANDRA inhibitor or ARB because of renal insufficiency. Going forward, the patient may benefit from hydralazine as an afterload reducing agent. The patient should be on as much beta-nathan therapy as can be tolerated by heart rate and blood pressure. The patient will see his primary care physician upon discharge up in [place] and will likely need a window/distribution clerk. [id number] #: [id number] MTDD
[2017-07-16] MEDS: Sodium Bicarbonate 8.4% IV* 100 MEQ in D5W 1000 ML BAG* 1,000 ML IVPB SCH (21:10)
[2017-07-17 05:29] LABS: EGFR Non-African American 32.8 (>60)
[2017-07-17] MEDS: Heparin VIAL(*) 5000 UNITS/ML VIAL (FIVE THOUSAND) SUBCUT SCH ×3 (05:30→20:56)
[2017-07-17] MEDS: Cefepime(*) 1 GM in D5W 50 ML BAG* 50 ML IVPB SCH ×2 (05:31→18:14)
[2017-07-17] MEDS ORDERED: Vancomycin Random Level* NOTE FOLLOW UP ONE (06:00)
[2017-07-17] MEDS: Insulin LISPRO* 1 UNITS UNIT SUBCUT SCH ×6 (07:55→18:14)
[2017-07-17] MEDS: Aspirin Low Dose CHEW TAB* 81 MG PO SCH (08:29)
[2017-07-17] MEDS: Folic Acid TAB* 1 MG PO SCH (08:29)
[2017-07-17] MEDS: Atorvastatin* 20 MG TAB PO SCH (08:29)
[2017-07-17] MEDS: Omeprazole CAP* 20 MG PO SCH (08:29)
[2017-07-17] MEDS: Insulin GLARGINE(*) 1 UNITS UNIT SUBCUT SCH (09:06)
--- NOTE | 2017-07-17 11:31 | PN ---
Subjective Date of Service: 07/17/17 - CC: SOB Interval History: Per patient breathing is much better and prior severe leg edema much improved. The patient is unaware if he was anemic prior to recent hospitalizations or if his heart was weak. Notes from [place] imply chronic ischemic CM. The patient denies any chest pain since his DC in 1994. Pt denies black or dark stool. Medications Active Medications: Aspirin (Aspirin Low Dose Tab*) 81 mg PO DAILY [facility] Last Admin: 07/17/17 08:29 Dose: 81 mg Atorvastatin Calcium (Lipitor*) 20 mg PO DAILY [facility] Last Admin: 07/17/17 08:29 Dose: 20 mg Dextrose (D50w Syringe 50 Ml*) 25 gm IV PUSH ONCE PRN PRN Reason: FS < 60 Dextrose (D50w Syringe 50 Ml*) 12.5 gm IV PUSH .FOR FS < 60 - SS PRN PRN Reason: FS < 60 Folic Acid (Folvite Tab*) 1 mg PO DAILY [facility] Last Admin: 07/17/17 08:29 Dose: 1 mg Heparin Sodium (Porcine) (Heparin Vial(*)) 5,000 units SUBCUT Q8HR [facility] Last Admin: 07/17/17 05:30 Dose: 5,000 units Cefepime HCl 1 gm/ Dextrose 50 mls @ 100 mls/hr IVPB Q12H [facility] Last Admin: 07/17/17 05:31 Dose: 100 mls/hr Insulin Glargine (Lantus(*)) 15 units SUBCUT Q24H [facility] Last Admin: 07/17/17 09:06 Dose: 15 unit Insulin Human Lispro (Humalog*) 0 units SUBCUT [facility] PRN Reason: Protocol Last Admin: 07/17/17 07:55 Dose: Not Given Insulin Human Lispro (Humalog*) 0 units SUBCUT AC [facility] PRN Reason: Protocol Last Admin: 07/17/17 09:10 Dose: 6 units Omeprazole (Prilosec Cap*) 20 mg PO DAILY [facility] Last Admin: 07/17/17 08:29 Dose: 20 mg Pharmacy Consult (Vancomycin Per Pharmacy*) 1 note FOLLOW UP . PRN PRN Reason: PER PROTOCOL Objective Vital Signs: Temp Pulse Resp BP Pulse Ox 97.7 F 94 28 119/50 100 07/16/17 21:45 07/16/17 21:45 07/17/17 08:05 07/16/17 21:45 07/16/17 21:45 Oxygen Devices in Use Now: Nasal Cannula Appearance: lean elderely gentleman lying 40 degrees, comfortable at rest with NC on. Eyes: No Scleral Icterus, PERRLA Ears/Nose/Mouth/Throat: Clear Oropharnyx, Mucous Membranes Moist Neck: Trachea Midline Respiratory: - - rhochorous cough, junky loud breath sounds in the bases, rhochorous. No posterior wheezing. Anterior breathsounds slight tightness. Cardiovascular: RRR - difficult to hear due to rhonchi, +SM heard LSB, PMI displaced left and prominant. Abdominal: - - Liver border enlarged, did not appreciate any pulsitility but some guarding. +BS, firm. Extremities: - - trace edema. Neurological: Alert and Oriented x 3 - follows commands, speech is articulate. Lines/Tubes/Other Access: Clean, Dry and Intact Peripheral IV Laboratory Results: 07/16/17 15:55 07/17/17 04:57 INR (Anticoag Therapy) 1.65 (0.77-1.02) H 07/16/17 06:30 Total Bilirubin 1.70 mg/dL (0.2-1.0) H 07/17/17 04:57 Direct Bilirubin 0.60 mg/dL (0.03-0.18) H 07/17/17 04:57 Indirect Bilirubin 1.1 mg/dL (0.3-1.0) H 07/17/17 04:57 AST 240 U/L (13-39) H 07/17/17 04:57 ALT 358 U/L (7-52) H 07/17/17 04:57 Alkaline Phosphatase 68 U/L (34-104) 07/17/17 04:57 B-Natriuretic Peptide 3684 pg/mL (-100) H 07/15/17 15:09 Total Protein 5.7 g/dL (6.4-8.9) L 07/17/17 04:57 Albumin 2.6 g/dL (3.2-5.2) L 07/17/17 04:57 Globulin 3.1 g/dL (2-4) 07/17/17 04:57 Albumin/Globulin Ratio 0.8 (1-3) L 07/17/17 04:57 07/15/17 07/15/17 18:32 22:00 Troponin I 0.72 H* 0.66 H* 07/15/17 07/15/17 07/15/17 15:09 15:09 15:09 WBC 21.0 H RBC 2.91 L Hgb 9.6 L Hct 30 L MCV 102 H MCH 33 H MCHC 32 RDW 23 H Plt Count 608 H MPV 9 Neut % (Auto) 89.2 H Lymph % (Auto) 5.0 L [place] % (Auto) 5.4 Eos % (Auto) 0.1 Baso % (Auto) 0.3 Absolute Neuts (auto) 18.7 H Absolute Lymphs (auto) 1.1 Absolute Monos (auto) 1.1 H Absolute Eos (auto) 0 Absolute Basos (auto) 0.1 Absolute Nucleated RBC 0 Nucleated RBC % 0.1 INR (Anticoag Therapy) D-Dimer, Quantitative Patient Temperature ABG pH ABG pH (Temp Correct) ABG pCO2 ABG pCO2 (Temp Corrct ABG pO2 ABG pO2 (Temp Correct ABG HCO3 ABG O2 Saturation ABG Base Excess Respiration Rate O2 Delivery Device Ventilator Type Vent Mode FiO2 Inspiratory Time PEEP Pressure Support Pressure Control EPAP IPAP BiPAP Sodium 133 Potassium 5.9 H Chloride 96 L Carbon Dioxide 14 L* Anion Gap 23 H BUN 59 H Creatinine 2.84 H Est GFR ( Amer) 28.0 Est GFR (Non-Af Amer) 21.8 BUN/Creatinine Ratio 20.8 H Glucose 321 H POC Glucose (mg/dL) Lactic Acid Calcium 9.7 Phosphorus Cancelled Magnesium Cancelled Total Bilirubin 2.90 H Direct Bilirubin Indirect Bilirubin AST 542 H ALT 332 H Alkaline Phosphatase 90 Troponin I 0.78 H* C-Reactive Protein 33.82 H B-Natriuretic Peptide 3684 H Total Protein 7.4 Albumin 3.6 Globulin 3.8 Albumin/Globulin Ratio 0.9 L Random Vancomycin Influenza A (Rapid) Influenza B (Rapid) 07/15/17 07/15/17 07/15/17 15:09 15:09 18:22 WBC RBC Hgb Hct MCV MCH MCHC RDW Plt Count MPV Neut % (Auto) Lymph % (Auto) [place] % (Auto) Eos % (Auto) Baso % (Auto) Absolute Neuts (auto) Absolute Lymphs (auto) Absolute Monos (auto) Absolute Eos (auto) Absolute Basos (auto) Absolute Nucleated RBC Nucleated RBC % INR (Anticoag Therapy) 1.48 H D-Dimer, Quantitative > 1050 H Patient Temperature Not Reportable ABG pH 7.23 L ABG pH (Temp Correct) Not Reportable ABG pCO2 22 L ABG pCO2 (Temp Corrct Not Reportable ABG pO2 117 H ABG pO2 (Temp Correct Not Reportable ABG HCO3 11.9 L ABG O2 Saturation 99.9 H ABG Base Excess -16.7 L Respiration Rate Not Reportable O2 Delivery Device n/c Ventilator Type Not Reportable Vent Mode Not Reportable FiO2 4 Inspiratory Time Not Reportable PEEP Not Reportable Pressure Support Not Reportable Pressure Control Not Reportable EPAP Not Reportable IPAP Not Reportable BiPAP Not Reportable Sodium Potassium Chloride Carbon Dioxide Anion Gap BUN Creatinine Est GFR ( Amer) Est GFR (Non-Af Amer) BUN/Creatinine Ratio Glucose POC Glucose (mg/dL) Lactic Acid 11.5 H* Calcium Phosphorus Magnesium Total Bilirubin Direct Bilirubin Indirect Bilirubin AST ALT Alkaline Phosphatase Troponin I C-Reactive Protein B-Natriuretic Peptide Total Protein Albumin Globulin Albumin/Globulin Ratio Random Vancomycin Influenza A (Rapid) Influenza B (Rapid) 07/15/17 07/15/17 07/15/17 18:32 18:32 19:38 WBC RBC Hgb Hct MCV MCH MCHC RDW Plt Count MPV Neut % (Auto) Lymph % (Auto) [place] % (Auto) Eos % (Auto) Baso % (Auto) Absolute Neuts (auto) Absolute Lymphs (auto) Absolute Monos (auto) Absolute Eos (auto) Absolute Basos (auto) Absolute Nucleated RBC Nucleated RBC % INR (Anticoag Therapy) D-Dimer, Quantitative Patient Temperature ABG pH ABG pH (Temp Correct) ABG pCO2 ABG pCO2 (Temp Corrct ABG pO2 ABG pO2 (Temp Correct ABG HCO3 ABG O2 Saturation ABG Base Excess Respiration Rate O2 Delivery Device Ventilator Type Vent Mode FiO2 Inspiratory Time PEEP Pressure Support Pressure Control EPAP IPAP BiPAP Sodium 130 L Potassium 6.5 H* Chloride 93 L Carbon Dioxide 12 L* Anion Gap 25 H BUN 67 H Creatinine 3.02 H Est GFR ( Amer) 26.1 Est GFR (Non-Af Amer) 20.3 BUN/Creatinine Ratio 22.2 H Glucose 286 H POC Glucose (mg/dL) Lactic Acid 12.9 H* Calcium 9.9 Phosphorus 8.4 H Magnesium 2.3 Total Bilirubin Direct Bilirubin Indirect Bilirubin AST ALT Alkaline Phosphatase Troponin I 0.72 H* C-Reactive Protein B-Natriuretic Peptide Total Protein Albumin Globulin Albumin/Globulin Ratio Random Vancomycin Influenza A (Rapid) Negative Influenza B (Rapid) Negative 07/15/17 07/15/17 07/15/17 21:14 22:00 22:00 WBC RBC Hgb Hct MCV MCH MCHC RDW Plt Count MPV Neut % (Auto) Lymph % (Auto) [place] % (Auto) Eos % (Auto) Baso % (Auto) Absolute Neuts (auto) Absolute Lymphs (auto) Absolute Monos (auto) Absolute Eos (auto) Absolute Basos (auto) Absolute Nucleated RBC Nucleated RBC % INR (Anticoag Therapy) D-Dimer, Quantitative Patient Temperature ABG pH ABG pH (Temp Correct) ABG pCO2 ABG pCO2 (Temp Corrct ABG pO2 ABG pO2 (Temp Correct ABG HCO3 ABG O2 Saturation ABG Base Excess Respiration Rate O2 Delivery Device Ventilator Type Vent Mode FiO2 Inspiratory Time PEEP Pressure Support Pressure Control EPAP IPAP BiPAP Sodium Potassium Chloride Carbon Dioxide Anion Gap BUN Creatinine Est GFR ( Amer) Est GFR (Non-Af Amer) BUN/Creatinine Ratio Glucose POC Glucose (mg/dL) 252 H Lactic Acid 10.5 H* Calcium Phosphorus Magnesium Total Bilirubin Direct Bilirubin Indirect Bilirubin AST ALT Alkaline Phosphatase Troponin I 0.66 H* C-Reactive Protein B-Natriuretic Peptide Total Protein Albumin Globulin Albumin/Globulin Ratio Random Vancomycin Influenza A (Rapid) Influenza B (Rapid) 07/15/17 07/15/17 07/16/17 23:05 23:05 00:17 WBC 17.5 H RBC 2.45 L Hgb 8.2 L Hct 25 L MCV 103 H MCH 34 H MCHC 33 RDW 23 H Plt Count 430 MPV 9 Neut % (Auto) Lymph % (Auto) [place] % (Auto) Eos % (Auto) Baso % (Auto) Absolute Neuts (auto) Absolute Lymphs (auto) Absolute Monos (auto) Absolute Eos (auto) Absolute Basos (auto) Absolute Nucleated RBC Nucleated RBC % INR (Anticoag Therapy) D-Dimer, Quantitative Patient Temperature ABG pH ABG pH (Temp Correct) ABG pCO2 ABG pCO2 (Temp Corrct ABG pO2 ABG pO2 (Temp Correct ABG HCO3 ABG O2 Saturation ABG Base Excess Respiration Rate O2 Delivery Device Ventilator Type Vent Mode FiO2 Inspiratory Time PEEP Pressure Support Pressure Control EPAP IPAP BiPAP Sodium 133 Potassium 5.3 H Chloride 98 L Carbon Dioxide 16 L Anion Gap 19 H BUN 64 H Creatinine 2.93 H Est GFR ( Amer) 27.0 Est GFR (Non-Af Amer) 21.0 BUN/Creatinine Ratio 21.8 H Glucose 299 H POC Glucose (mg/dL) 320 H Lactic Acid Calcium 9.3 Phosphorus Magnesium Total Bilirubin Direct Bilirubin Indirect Bilirubin AST ALT Alkaline Phosphatase Troponin I C-Reactive Protein B-Natriuretic Peptide Total Protein Albumin Globulin Albumin/Globulin Ratio Random Vancomycin Influenza A (Rapid) Influenza B (Rapid) 07/16/17 07/16/17 07/16/17 03:15 03:15 04:50 WBC RBC Hgb Hct MCV MCH MCHC RDW Plt Count MPV Neut % (Auto) Lymph % (Auto) [place] % (Auto) Eos % (Auto) Baso % (Auto) Absolute Neuts (auto) Absolute Lymphs (auto) Absolute Monos (auto) Absolute Eos (auto) Absolute Basos (auto) Absolute Nucleated RBC Nucleated RBC % INR (Anticoag Therapy) D-Dimer, Quantitative Patient Temperature ABG pH ABG pH (Temp Correct) ABG pCO2 ABG pCO2 (Temp Corrct ABG pO2 ABG pO2 (Temp Correct ABG HCO3 ABG O2 Saturation ABG Base Excess Respiration Rate O2 Delivery Device Ventilator Type Vent Mode FiO2 Inspiratory Time PEEP Pressure Support Pressure Control EPAP IPAP BiPAP Sodium 135 Potassium 4.6 Chloride 100 L Carbon Dioxide 24 Anion Gap 11 BUN 61 H Creatinine 2.78 H Est GFR ( Amer) 28.7 Est GFR (Non-Af Amer) 22.3 BUN/Creatinine Ratio 21.9 H Glucose 276 H POC Glucose (mg/dL) 292 H Lactic Acid 4.5 H* Calcium 8.5 L Phosphorus Magnesium Total Bilirubin Direct Bilirubin Indirect Bilirubin AST ALT Alkaline Phosphatase Troponin I C-Reactive Protein B-Natriuretic Peptide Total Protein Albumin Globulin Albumin/Globulin Ratio Random Vancomycin Influenza A (Rapid) Influenza B (Rapid) 07/16/17 07/16/17 07/16/17 06:30 06:30 06:30 WBC 15.6 H RBC 2.32 L Hgb 7.7 L Hct 23 L MCV 99 H MCH 33 H MCHC 34 RDW 22 H Plt Count 387 MPV 9 Neut % (Auto) 90.0 H Lymph % (Auto) 5.7 L [place] % (Auto) 3.8 Eos % (Auto) 0.1 Baso % (Auto) 0.4 Absolute Neuts (auto) 14.1 H Absolute Lymphs (auto) 0.9 L Absolute Monos (auto) 0.6 Absolute Eos (auto) 0 Absolute Basos (auto) 0.1 Absolute Nucleated RBC 0 Nucleated RBC % 0.1 INR (Anticoag Therapy) 1.65 H D-Dimer, Quantitative Patient Temperature ABG pH ABG pH (Temp Correct) ABG pCO2 ABG pCO2 (Temp Corrct ABG pO2 ABG pO2 (Temp Correct ABG HCO3 ABG O2 Saturation ABG Base Excess Respiration Rate O2 Delivery Device Ventilator Type Vent Mode FiO2 Inspiratory Time PEEP Pressure Support Pressure Control EPAP IPAP BiPAP Sodium 132 L Potassium 3.9 Chloride 96 L Carbon Dioxide 24 Anion Gap 12 H BUN 59 H Creatinine 2.76 H Est GFR ( Amer) 29.0 Est GFR (Non-Af Amer) 22.5 BUN/Creatinine Ratio 21.4 H Glucose 469 H POC Glucose (mg/dL) Lactic Acid Calcium 7.9 L Phosphorus Magnesium Total Bilirubin 1.80 H Direct Bilirubin Indirect Bilirubin AST 591 H ALT 465 H Alkaline Phosphatase 66 Troponin I C-Reactive Protein B-Natriuretic Peptide Total Protein 5.6 L Albumin 2.7 L Globulin 2.9 Albumin/Globulin Ratio 0.9 L Random Vancomycin 9.9 Influenza A (Rapid) Influenza B (Rapid) 07/16/17 07/16/17 07/16/17 06:30 08:36 08:50 WBC RBC Hgb Hct MCV MCH MCHC RDW Plt Count MPV Neut % (Auto) Lymph % (Auto) [place] % (Auto) Eos % (Auto) Baso % (Auto) Absolute Neuts (auto) Absolute Lymphs (auto) Absolute Monos (auto) Absolute Eos (auto) Absolute Basos (auto) Absolute Nucleated RBC Nucleated RBC % INR (Anticoag Therapy) D-Dimer, Quantitative Patient Temperature ABG pH ABG pH (Temp Correct) ABG pCO2 ABG pCO2 (Temp Corrct ABG pO2 ABG pO2 (Temp Correct ABG HCO3 ABG O2 Saturation ABG Base Excess Respiration Rate O2 Delivery Device Ventilator Type Vent Mode FiO2 Inspiratory Time PEEP Pressure Support Pressure Control EPAP IPAP BiPAP Sodium Potassium Chloride Carbon Dioxide Anion Gap BUN Creatinine Est GFR ( Amer) Est GFR (Non-Af Amer) BUN/Creatinine Ratio Glucose 412 H POC Glucose (mg/dL) > 444 H* Lactic Acid 3.9 H* Calcium Phosphorus Magnesium Total Bilirubin Direct Bilirubin Indirect Bilirubin AST ALT Alkaline Phosphatase Troponin I C-Reactive Protein B-Natriuretic Peptide Total Protein Albumin Globulin Albumin/Globulin Ratio Random Vancomycin Influenza A (Rapid) Influenza B (Rapid) 07/16/17 07/16/17 07/16/17 12:20 12:30 15:55 WBC 17.6 H RBC 2.37 L Hgb 7.9 L Hct 23 L MCV 98 H MCH 33 H MCHC 34 RDW 22 H Plt Count 408 MPV 9 Neut % (Auto) Lymph % (Auto) [place] % (Auto) Eos % (Auto) Baso % (Auto) Absolute Neuts (auto) Absolute Lymphs (auto) Absolute Monos (auto) Absolute Eos (auto) Absolute Basos (auto) Absolute Nucleated RBC Nucleated RBC % INR (Anticoag Therapy) D-Dimer, Quantitative Patient Temperature ABG pH ABG pH (Temp Correct) ABG pCO2 ABG pCO2 (Temp Corrct ABG pO2 ABG pO2 (Temp Correct ABG HCO3 ABG O2 Saturation ABG Base Excess Respiration Rate O2 Delivery Device Ventilator Type Vent Mode FiO2 Inspiratory Time PEEP Pressure Support Pressure Control EPAP IPAP BiPAP Sodium Potassium Chloride Carbon Dioxide Anion Gap BUN Creatinine Est GFR ( Amer) Est GFR (Non-Af Amer) BUN/Creatinine Ratio Glucose POC Glucose (mg/dL) 394 H Lactic Acid 3.0 H* Calcium Phosphorus Magnesium Total Bilirubin Direct Bilirubin Indirect Bilirubin AST ALT Alkaline Phosphatase Troponin I C-Reactive Protein B-Natriuretic Peptide Total Protein Albumin Globulin Albumin/Globulin Ratio Random Vancomycin Influenza A (Rapid) Influenza B (Rapid) 07/16/17 07/16/17 07/16/17 15:55 18:11 21:07 WBC RBC Hgb Hct MCV MCH MCHC RDW Plt Count MPV Neut % (Auto) Lymph % (Auto) [place] % (Auto) Eos % (Auto) Baso % (Auto) Absolute Neuts (auto) Absolute Lymphs (auto) Absolute Monos (auto) Absolute Eos (auto) Absolute Basos (auto) Absolute Nucleated RBC Nucleated RBC % INR (Anticoag Therapy) D-Dimer, Quantitative Patient Temperature ABG pH ABG pH (Temp Correct) ABG pCO2 ABG pCO2 (Temp Corrct ABG pO2 ABG pO2 (Temp Correct ABG HCO3 ABG O2 Saturation ABG Base Excess Respiration Rate O2 Delivery Device Ventilator Type Vent Mode FiO2 Inspiratory Time PEEP Pressure Support Pressure Control EPAP IPAP BiPAP Sodium Potassium Chloride Carbon Dioxide Anion Gap BUN Creatinine Est GFR ( Amer) Est GFR (Non-Af Amer) BUN/Creatinine Ratio Glucose POC Glucose (mg/dL) 395 H 319 H Lactic Acid 2.7 H* Calcium Phosphorus Magnesium Total Bilirubin Direct Bilirubin Indirect Bilirubin AST ALT Alkaline Phosphatase Troponin I C-Reactive Protein B-Natriuretic Peptide Total Protein Albumin Globulin Albumin/Globulin Ratio Random Vancomycin Influenza A (Rapid) Influenza B (Rapid) 07/17/17 07/17/17 04:57 07:37 WBC RBC Hgb Hct MCV MCH MCHC RDW Plt Count MPV Neut % (Auto) Lymph % (Auto) [place] % (Auto) Eos % (Auto) Baso % (Auto) Absolute Neuts (auto) Absolute Lymphs (auto) Absolute Monos (auto) Absolute Eos (auto) Absolute Basos (auto) Absolute Nucleated RBC Nucleated RBC % INR (Anticoag Therapy) D-Dimer, Quantitative Patient Temperature ABG pH ABG pH (Temp Correct) ABG pCO2 ABG pCO2 (Temp Corrct ABG pO2 ABG pO2 (Temp Correct ABG HCO3 ABG O2 Saturation ABG Base Excess Respiration Rate O2 Delivery Device Ventilator Type Vent Mode FiO2 Inspiratory Time PEEP Pressure Support Pressure Control EPAP IPAP BiPAP Sodium Potassium Chloride Carbon Dioxide Anion Gap BUN 52 H Creatinine 1.99 H Est GFR ( Amer) 42.2 Est GFR (Non-Af Amer) 32.8 BUN/Creatinine Ratio Glucose POC Glucose (mg/dL) 140 H Lactic Acid Calcium Phosphorus Magnesium Total Bilirubin 1.70 H Direct Bilirubin 0.60 H Indirect Bilirubin 1.1 H AST 240 H ALT 358 H Alkaline Phosphatase 68 Troponin I C-Reactive Protein B-Natriuretic Peptide Total Protein 5.7 L Albumin 2.6 L Globulin 3.1 Albumin/Globulin Ratio 0.8 L Random Vancomycin 16.8 Influenza A (Rapid) Influenza B (Rapid) Diagnostic Imaging: CTA chest/abd/pelvis per Dr. Aranda: +lung mass (pneumonia vs. malignancy), possible malignacy in colon, pleural effusions and ascites noted. Additional finding in full report. ECHO: EF 30%, PAPr 80 mmHg. EKG Data: Sinus tachycardia. Assessment/Plan 77 yo with ischemic CM, per [place] notes son reported a decrease in lasix and pt noted increased SOB and LE edema. In [place] pt found in BiV CHF at that time and CXR revealed pneumonia. Anemic on that admission. Very high LFT' s, improved. CO2 retainer there. Pt now admitted to [facility] with recurrent PAN, marked, again appears in Bi[facility] CHF and management complicated by marked RI. Concern on imaging of possible malignancy (lungs/GI). Comorbidities include: COPD, anemia, CAD, bladder Cancer/renal mets (per old records), DM, HTN. Only cardiac medication the patient is currently on is a statin. Agree with Dr. Hamilton ACEI/ARB contraindicated now. I recommend Toprol or Coreg for CM. Although this appears to be endstage CM with CHF, anemia is impacting significantly on cardiac function and CHF. I also am concerned about paraneoplasic process and that lung mass is more than pneumonia. Complex high risk patient. Should coordinate care with his physician team in [place], from a cardiac standpoint can likely discharge or transfer soon, but extensive issues make him at risk for rapid decline again and follow up on discharge same week and likely with multiple physicians would be optimal.
[2017-07-17] MEDS ORDERED: Vancomycin(*) 1,000 MG in NS 0.9% 250 ML* 250 ML IVPB ONE (12:00)
--- NOTE | 2017-07-17 15:28 | PN ---
Subjective Date of Service: 07/17/17 Interval History: Only complaint is he would like to get out of bed and walk Denies SOB/CP, N/V Minimal non productive cough eating/drinking Objective Active Medications: Aspirin (Aspirin Low Dose Tab*) 81 mg PO DAILY [facility] Last Admin: 07/17/17 08:29 Dose: 81 mg Atorvastatin Calcium (Lipitor*) 20 mg PO DAILY [facility] Last Admin: 07/17/17 08:29 Dose: 20 mg Dextrose (D50w Syringe 50 Ml*) 25 gm IV PUSH ONCE PRN PRN Reason: FS < 60 Dextrose (D50w Syringe 50 Ml*) 12.5 gm IV PUSH .FOR FS < 60 - SS PRN PRN Reason: FS < 60 Folic Acid (Folvite Tab*) 1 mg PO DAILY [facility] Last Admin: 07/17/17 08:29 Dose: 1 mg Heparin Sodium (Porcine) (Heparin Vial(*)) 5,000 units SUBCUT Q8HR [facility] Last Admin: 07/17/17 13:25 Dose: 5,000 units Cefepime HCl 1 gm/ Dextrose 50 mls @ 100 mls/hr IVPB Q12H [facility] Last Admin: 07/17/17 05:31 Dose: 100 mls/hr Insulin Glargine (Lantus(*)) 15 units SUBCUT Q24H [facility] Last Admin: 07/17/17 09:06 Dose: 15 unit Insulin Human Lispro (Humalog*) 0 units SUBCUT AC [facility] PRN Reason: Protocol Last Admin: 07/17/17 12:39 Dose: 4 units Insulin Human Lispro (Humalog*) 0 units SUBCUT AC [facility] PRN Reason: Protocol Last Admin: 07/17/17 12:40 Dose: 6 units Metoprolol Tartrate (Lopressor Tab*) 12.5 mg PO Q12HR [facility] Omeprazole (Prilosec Cap*) 20 mg PO DAILY [facility] Last Admin: 07/17/17 08:29 Dose: 20 mg Pharmacy Consult (Vancomycin Per Pharmacy*) 1 note FOLLOW UP . PRN PRN Reason: PER PROTOCOL Pharmacy Consult (Vancomycin Random Level*) 1 note FOLLOW UP 0600 ONE Stop: 07/18/17 06:01 Vital Signs - 8 hr 07/17/17 07/17/17 07/17/17 08:00 08:05 12:00 Temperature 98 F Pulse Rate 94 Respiratory 28 28 28 Rate Blood Pressure 116/55 (mmHg) O2 Sat by Pulse 98 Oximetry Oxygen Devices in Use Now: Nasal Cannula Appearance: NAD Eyes: No Scleral Icterus, PERRLA Ears/Nose/Mouth/Throat: NL Teeth, Lips, Gums, Clear Oropharnyx Neck: NL Appearance and Movements; NL JVP, Trachea Midline Respiratory: Symmetrical Chest Expansion and Respiratory Effort, Clear to Auscultation Cardiovascular: RRR Abdominal: NL Sounds; No Tenderness; No Distention, No Hepatosplenomegaly Lymphatic: No Cervical Adenopathy Extremities: No Edema Skin: No Rash or Ulcers Neurological: Alert and Oriented x 3 Lines/Tubes/Other Access: Clean, Dry and Intact Isabel - remove today Result Diagrams: 07/16/17 15:55 07/17/17 04:57 Additional Lab and Data: Lab Results 07/15/17 07/15/17 07/15/17 Range/Units 15:09 15:09 15:09 WBC 21.0 H (3.5-10.8) 10^3/ul RBC 2.91 L (4.0-5.4) 10^6/ul Hgb 9.6 L (14.0-18.0) g/dl Hct 30 L (42-52) % MCV 102 H (80-94) fL MCH 33 H (27-31) pg MCHC 32 (31-36) g/dl RDW 23 H (10.5-15) % Plt Count 608 H (150-450) 10^3/ul MPV 9 (7.4-10.4) um3 Neut % (Auto) 89.2 H (38-83) % Lymph % (Auto) 5.0 L (25-47) % Carolina % (Auto) 5.4 (1-9) % Eos % (Auto) 0.1 (0-6) % Baso % (Auto) 0.3 (0-2) % Absolute Neuts (auto) 18.7 H (1.5-7.7) 10^3/ul Absolute Lymphs (auto) 1.1 (1.0-4.8) 10^3/ul Absolute Monos (auto) 1.1 H (0-0.8) 10^3/ul Absolute Eos (auto) 0 (0-0.6) 10^3/ul Absolute Basos (auto) 0.1 (0-0.2) 10^3/ul Absolute Nucleated RBC 0 10^3/ul Nucleated RBC % 0.1 INR (Anticoag Therapy) (0.77-1.02) D-Dimer, Quantitative (Less Than 230) ng/mL Sodium 133 (133-145) mmol/L Potassium 5.9 H (3.5-5.0) mmol/L Chloride 96 L (101-111) mmol/L Carbon Dioxide 14 L* (22-32) mmol/L Anion Gap 23 H (2-11) mmol/L BUN 59 H (6-24) mg/dL Creatinine 2.84 H (0.67-1.17) mg/dL Est GFR ( Amer) 28.0 (>60) Est GFR (Non-Af Amer) 21.8 (>60) BUN/Creatinine Ratio 20.8 H (8-20) Glucose 321 H (70-100) mg/dL Lactic Acid (0.5-2.0) mmol/L Calcium 9.7 (8.6-10.3) mg/dL Total Bilirubin 2.90 H (0.2-1.0) mg/dL AST 542 H (13-39) U/L ALT 332 H (7-52) U/L Alkaline Phosphatase 90 (34-104) U/L Troponin I 0.78 H* (<0.04) ng/mL C-Reactive Protein 33.82 H (< 5.00) mg/L B-Natriuretic Peptide 3684 H ( - 100) pg/mL Total Protein 7.4 (6.4-8.9) g/dL Albumin 3.6 (3.2-5.2) g/dL Globulin 3.8 (2-4) g/dL Albumin/Globulin Ratio 0.9 L (1-3) 07/15/17 07/15/17 Range/Units 15:09 15:09 WBC (3.5-10.8) 10^3/ul RBC (4.0-5.4) 10^6/ul Hgb (14.0-18.0) g/dl Hct (42-52) % MCV (80-94) fL MCH (27-31) pg MCHC (31-36) g/dl RDW (10.5-15) % Plt Count (150-450) 10^3/ul MPV (7.4-10.4) um3 Neut % (Auto) (38-83) % Lymph % (Auto) (25-47) % Carolina % (Auto) (1-9) % Eos % (Auto) (0-6) % Baso % (Auto) (0-2) % Absolute Neuts (auto) (1.5-7.7) 10^3/ul Absolute Lymphs (auto) (1.0-4.8) 10^3/ul Absolute Monos (auto) (0-0.8) 10^3/ul Absolute Eos (auto) (0-0.6) 10^3/ul Absolute Basos (auto) (0-0.2) 10^3/ul Absolute Nucleated RBC 10^3/ul Nucleated RBC % INR (Anticoag Therapy) 1.48 H (0.77-1.02) D-Dimer, Quantitative > 1050 H (Less Than 230) ng/mL Sodium (133-145) mmol/L Potassium (3.5-5.0) mmol/L Chloride (101-111) mmol/L Carbon Dioxide (22-32) mmol/L Anion Gap (2-11) mmol/L BUN (6-24) mg/dL Creatinine (0.67-1.17) mg/dL Est GFR ( Amer) (>60) Est GFR (Non-Af Amer) (>60) BUN/Creatinine Ratio (8-20) Glucose (70-100) mg/dL Lactic Acid 11.5 H* (0.5-2.0) mmol/L Calcium (8.6-10.3) mg/dL Total Bilirubin (0.2-1.0) mg/dL AST (13-39) U/L ALT (7-52) U/L Alkaline Phosphatase (34-104) U/L Troponin I (<0.04) ng/mL C-Reactive Protein (< 5.00) mg/L B-Natriuretic Peptide ( - 100) pg/mL Total Protein (6.4-8.9) g/dL Albumin (3.2-5.2) g/dL Globulin (2-4) g/dL Albumin/Globulin Ratio (1-3) Microbiology and Other Data: Microbiology 07/15/17 21:35 Nasal Screen MRSA (PCR)(RASHAAD) - Final Nasal Mrsa Not Detected 07/15/17 22:20 Stool Occult Blood (RASHAAD) - Final Stool 07/15/17 19:28 Influenza Types A,B Antigen (RASHAAD) - Final Nasal Specimen received for Influenza A/B Molecular testing Assess/Plan/Problems-Billing Assessment: 77 yo M recent hospital stay requiring intubation returned to [facility] with SOB found with profound metabolic acidosis and decompensated heart failure - Patient Problems (1) Acute combined systolic (congestive) and diastolic (congestive) heart failure Comment: Valvular disease worse compared to last stay at [place] Improved with BiPAP, maybe afterload reduction? appreciate card assistance Restart metoprolol 12.5 BID today. Uptitrate as possible Hold KASSANDRA/ARB in setting of renal failure (2) Lactic acidosis Comment: Unclear preciptant Metoformin however only 1000mg for several days Possible decompensated HF in setting of dehydration, ?PNA (3) Acute kidney failure Comment: Improving (4) Valvular disease Comment: MR, , AI worsening severe systolic dysfunction (5) Diabetes Comment: basal bolus insulin (6) Pneumonia Comment: continues on cefepime WBC remains elevated no fevers consider vanco if wbc does not improve (7) DVT prophylaxis Comment: HSQ
[2017-07-17] MEDS ORDERED: Metoprolol Tartrate TAB* 25 MG PO ONE (16:42)
--- NOTE | 2017-07-17 20:06 | CONS ---
NEPHROLOGY CONSULTATION: DATE OF CONSULT: 07/17/17 - ROOM #440 HISTORY OF PRESENT ILLNESS: Mr. Hinson is a 77-year-old gentleman who was recently hospitalized in [place] for an episode of respiratory failure, which required intubation. It was complicated by acute renal failure. He had sepsis secondary to pneumonia and congestive heart failure. He subsequently improved and returned to the [place] area where he was staying with family. He again developed some lower extremity edema. He was having some shortness of breath and as a result, he was brought to the emergency room for evaluation. PAST MEDICAL HISTORY: His previous medical history is significant for diabetes mellitus type 2, which has not been complicated by retinopathy, but he does have some neuropathy to his feet. He has a history of coronary artery disease and he was status post myocardial infarction in 1994. He has a history of bladder cancer. He is status post a partial nephrectomy for what turned out not be renal cell carcinoma. MEDICATIONS: His medications at the time of admission included: 1. Aspirin 81 mg daily. 2. Atorvastatin 20 mg daily. 3. Cefpodoxime 200 mg twice a day. 4. Folic acid 1 mg daily. 5. Glipizide. 6. Metformin 5/500 one twice a day. 7. Metoprolol XL 50 mg daily. 8. Nitroglycerin as required. 9. Pantoprazole 40 mg daily. 10. Sitagliptin 50 mg daily. 11. Torsemide 10 mg daily. FAMILY HISTORY: Significant for mother and father both had diabetes mellitus and coronary artery disease. SOCIAL HISTORY: He is presently living with some family, but usually resides in [place]. REVIEW OF SYSTEMS: Unremarkable except for the previous and present medical illnesses. PHYSICAL EXAMINATION: At the time that I examined, which was yesterday, he was afebrile. Blood pressure is 124/77, pulse of 100, respirations 25. HEENT: He is normocephalic. He is anicteric. Mucous membranes are moist. The chest revealed some scattered rhonchi. The heart revealed a regular rhythm. The abdomen was soft and nontender. There was 1+ edema to his legs. LABORATORY DATA: A review of his laboratory studies reveals a white count of 17.6, hemoglobin 7.9, hematocrit 23, platelets 408,000. Sodium 132, potassium 3.9, chloride 96, total CO2 24, BUN 52 and that is down from a maximum of 57 just after admission, creatinine 1.99 and that is down from a maximum of 3.02 just after admission. His chest x-ray reveals what appears to be a combination of pneumonia and congestive heart failure. He does have a depressed cardiac ejection fraction. IMPRESSION: 1. Acute on chronic renal insufficiency, now improving. 2. Anemia, probably anemia of chronic renal disease. 3. Congestive heart failure. 4. Diabetes mellitus type 2. 5. Coronary artery disease. At the present time, he is improving nicely. I do not know that he will come back to his baseline. Obviously, we should avoid nonsteroidal anti- inflammatory agents and extra contrast agents, but otherwise I think his regimen is well chosen at the present time. He should be seen in nephrologic consultation once he is ready for discharge. [id number]/[facility] #: [id number] MTDD
[2017-07-17] MEDS: Metoprolol Tartrate TAB* 25 MG PO SCH (20:53)
[2017-07-17] MEDS ORDERED: Metoprolol Tartrate TAB* 25 MG PO SCH (21:00)
[2017-07-17] MEDS ORDERED: Dextrose 50% Syringe 50 ML* 25 GM/50 ML SYRINGE IV PUSH PRN (21:53)
[2017-07-17] MEDS ORDERED: Insulin LISPRO* 1 UNITS UNIT SUBCUT ONE (21:53)
[2017-07-18 04:58] LABS: ABS Basophils 0.1 10^3/ul (0-0.2); ABS Eosinophils 0.2 10^3/ul (0-0.6); ABS Lymphocytes 0.5 10^3/ul (1.0-4.8); ABS Monocytes 0.7 10^3/ul (0-0.8); ABS Neutrophils 7.1 10^3/ul (1.5-7.7); ABS Nucleated RBC 0 10^3/ul; Eosinophil % 2.4 % (0-6); Hematocrit 24 % (42-52); Hemoglobin 8.3 g/dl (14.0-18.0); Lymphocyte % 5.9 % (25-47); Mean Corpuscular HGB Conc 35 g/dl (31-36); Mean Corpuscular Hemoglobin 34 pg (27-31); Mean Corpuscular Volume 96 fL (80-94); Mean Platelet Volume 8 um3 (7.4-10.4); Nucleated Red Blood Cells % 0.1; Platelet Count 332 10^3/ul (150-450); Red Blood Count 2.45 10^6/ul (4.0-5.4); Red Cell Distribution Width 22 % (10.5-15); White Blood Count 8.5 10^3/ul (3.5-10.8)
[2017-07-18] MEDS: Heparin VIAL(*) 5000 UNITS/ML VIAL (FIVE THOUSAND) SUBCUT SCH ×3 (05:06→22:20)
[2017-07-18] MEDS: Cefepime(*) 1 GM in D5W 50 ML BAG* 50 ML IVPB SCH ×2 (05:08→17:59)
[2017-07-18 05:12] LABS: EGFR Non-African American 44.8 (>60)
[2017-07-18] MEDS ORDERED: Vancomycin Random Level* NOTE FOLLOW UP ONE (06:00)
--- NOTE | 2017-07-18 08:45 | PN ---
Subjective Date of Service: 07/18/17 Interval History: Up and out of bed yesterday. Walked around room. Denies SOB/CP Eating breakfast. Anxious to be discharged Had poor sleep 2/2 frequent interruptions Objective Active Medications: Aspirin (Aspirin Low Dose Tab*) 81 mg PO DAILY [facility] Last Admin: 07/17/17 08:29 Dose: 81 mg Atorvastatin Calcium (Lipitor*) 20 mg PO DAILY [facility] Last Admin: 07/17/17 08:29 Dose: 20 mg Dextrose (D50w Syringe 50 Ml*) 25 gm IV PUSH ONCE PRN PRN Reason: FS < 60 Dextrose (D50w Syringe 50 Ml*) 12.5 gm IV PUSH .FOR FS < 60 - SS PRN PRN Reason: FS < 60 Folic Acid (Folvite Tab*) 1 mg PO DAILY [facility] Last Admin: 07/17/17 08:29 Dose: 1 mg Heparin Sodium (Porcine) (Heparin Vial(*)) 5,000 units SUBCUT Q8HR [facility] Last Admin: 07/18/17 05:06 Dose: 5,000 units Cefepime HCl 1 gm/ Dextrose 50 mls @ 100 mls/hr IVPB Q12H [facility] Last Admin: 07/18/17 05:08 Dose: 100 mls/hr Insulin Glargine (Lantus(*)) 15 units SUBCUT Q24H [facility] Last Admin: 07/17/17 09:06 Dose: 15 unit Insulin Human Lispro (Humalog*) 0 units SUBCUT AC [facility] PRN Reason: Protocol Last Admin: 07/17/17 18:13 Dose: 2 units Insulin Human Lispro (Humalog*) 0 units SUBCUT [facility] PRN Reason: Protocol Last Admin: 07/17/17 18:14 Dose: 7 units Metoprolol Tartrate (Lopressor Tab*) 12.5 mg PO Q12HR [facility] Last Admin: 07/17/17 20:53 Dose: 12.5 mg Omeprazole (Prilosec Cap*) 20 mg PO DAILY [facility] Last Admin: 07/17/17 08:29 Dose: 20 mg Pharmacy Consult (Vancomycin Per Pharmacy*) 1 note FOLLOW UP . PRN PRN Reason: PER PROTOCOL Vital Signs - 8 hr 07/18/17 07/18/17 07/18/17 03:33 03:43 07:46 Temperature 98.3 F 98.6 F Pulse Rate 97 97 Respiratory 20 36 Rate Blood Pressure 93/38 130/65 102/51 (mmHg) O2 Sat by Pulse 96 97 Oximetry Oxygen Devices in Use Now: Nasal Cannula Appearance: NAD, eating breakfast Eyes: No Scleral Icterus, PERRLA Ears/Nose/Mouth/Throat: Clear Oropharnyx, Mucous Membranes Moist Neck: NL Appearance and Movements; NL JVP, Trachea Midline Respiratory: Symmetrical Chest Expansion and Respiratory Effort, Clear to Auscultation Cardiovascular: RRR Abdominal: NL Sounds; No Tenderness; No Distention, No Hepatosplenomegaly Lymphatic: No Cervical Adenopathy Extremities: - - trace b/l LE edema Neurological: Alert and Oriented x 3 Result Diagrams: 07/18/17 04:51 07/18/17 04:51 Additional Lab and Data: Lab Results 07/15/17 07/15/17 07/15/17 Range/Units 15:09 15:09 15:09 WBC 21.0 H (3.5-10.8) 10^3/ul RBC 2.91 L (4.0-5.4) 10^6/ul Hgb 9.6 L (14.0-18.0) g/dl Hct 30 L (42-52) % MCV 102 H (80-94) fL MCH 33 H (27-31) pg MCHC 32 (31-36) g/dl RDW 23 H (10.5-15) % Plt Count 608 H (150-450) 10^3/ul MPV 9 (7.4-10.4) um3 Neut % (Auto) 89.2 H (38-83) % Lymph % (Auto) 5.0 L (25-47) % Callahan % (Auto) 5.4 (1-9) % Eos % (Auto) 0.1 (0-6) % Baso % (Auto) 0.3 (0-2) % Absolute Neuts (auto) 18.7 H (1.5-7.7) 10^3/ul Absolute Lymphs (auto) 1.1 (1.0-4.8) 10^3/ul Absolute Monos (auto) 1.1 H (0-0.8) 10^3/ul Absolute Eos (auto) 0 (0-0.6) 10^3/ul Absolute Basos (auto) 0.1 (0-0.2) 10^3/ul Absolute Nucleated RBC 0 10^3/ul Nucleated RBC % 0.1 INR (Anticoag Therapy) (0.77-1.02) D-Dimer, Quantitative (Less Than 230) ng/mL Sodium 133 (133-145) mmol/L Potassium 5.9 H (3.5-5.0) mmol/L Chloride 96 L (101-111) mmol/L Carbon Dioxide 14 L* (22-32) mmol/L Anion Gap 23 H (2-11) mmol/L BUN 59 H (6-24) mg/dL Creatinine 2.84 H (0.67-1.17) mg/dL Est GFR ( Amer) 28.0 (>60) Est GFR (Non-Af Amer) 21.8 (>60) BUN/Creatinine Ratio 20.8 H (8-20) Glucose 321 H (70-100) mg/dL Lactic Acid (0.5-2.0) mmol/L Calcium 9.7 (8.6-10.3) mg/dL Total Bilirubin 2.90 H (0.2-1.0) mg/dL AST 542 H (13-39) U/L ALT 332 H (7-52) U/L Alkaline Phosphatase 90 (34-104) U/L Troponin I 0.78 H* (<0.04) ng/mL C-Reactive Protein 33.82 H (< 5.00) mg/L B-Natriuretic Peptide 3684 H ( - 100) pg/mL Total Protein 7.4 (6.4-8.9) g/dL Albumin 3.6 (3.2-5.2) g/dL Globulin 3.8 (2-4) g/dL Albumin/Globulin Ratio 0.9 L (1-3) 07/15/17 07/15/17 Range/Units 15:09 15:09 WBC (3.5-10.8) 10^3/ul RBC (4.0-5.4) 10^6/ul Hgb (14.0-18.0) g/dl Hct (42-52) % MCV (80-94) fL MCH (27-31) pg MCHC (31-36) g/dl RDW (10.5-15) % Plt Count (150-450) 10^3/ul MPV (7.4-10.4) um3 Neut % (Auto) (38-83) % Lymph % (Auto) (25-47) % Callahan % (Auto) (1-9) % Eos % (Auto) (0-6) % Baso % (Auto) (0-2) % Absolute Neuts (auto) (1.5-7.7) 10^3/ul Absolute Lymphs (auto) (1.0-4.8) 10^3/ul Absolute Monos (auto) (0-0.8) 10^3/ul Absolute Eos (auto) (0-0.6) 10^3/ul Absolute Basos (auto) (0-0.2) 10^3/ul Absolute Nucleated RBC 10^3/ul Nucleated RBC % INR (Anticoag Therapy) 1.48 H (0.77-1.02) D-Dimer, Quantitative > 1050 H (Less Than 230) ng/mL Sodium (133-145) mmol/L Potassium (3.5-5.0) mmol/L Chloride (101-111) mmol/L Carbon Dioxide (22-32) mmol/L Anion Gap (2-11) mmol/L BUN (6-24) mg/dL Creatinine (0.67-1.17) mg/dL Est GFR ( Amer) (>60) Est GFR (Non-Af Amer) (>60) BUN/Creatinine Ratio (8-20) Glucose (70-100) mg/dL Lactic Acid 11.5 H* (0.5-2.0) mmol/L Calcium (8.6-10.3) mg/dL Total Bilirubin (0.2-1.0) mg/dL AST (13-39) U/L ALT (7-52) U/L Alkaline Phosphatase (34-104) U/L Troponin I (<0.04) ng/mL C-Reactive Protein (< 5.00) mg/L B-Natriuretic Peptide ( - 100) pg/mL Total Protein (6.4-8.9) g/dL Albumin (3.2-5.2) g/dL Globulin (2-4) g/dL Albumin/Globulin Ratio (1-3) Microbiology and Other Data: Microbiology 07/15/17 21:35 Nasal Screen MRSA (PCR)(RASHAAD) - Final Nasal Mrsa Not Detected 07/15/17 22:20 Stool Occult Blood (RASHAAD) - Final Stool 07/15/17 19:28 Influenza Types A,B Antigen (RASHAAD) - Final Nasal Specimen received for Influenza A/B Molecular testing Assess/Plan/Problems-Billing Assessment: 77 yo M recent hospital stay requiring intubation returned to [facility] with SOB found with profound lactic acidosis, respiratory failure requiring NIPPV and decompensated heart failure - Patient Problems (1) Pneumonia Comment: PNA vs possible malignancy on CT. In setting of leukocytosis improving on ABx Difficult o appreciate on CXR on admission continues on cefepime/Vanco and improving clinically Was discharged on cefpodoxime from last hospital stay. Favor full course of abx given presenting critical illness (2) Acute combined systolic (congestive) and diastolic (congestive) heart failure Comment: Valvular disease worse compared to last stay at [place] Improved with BiPAP, maybe afterload reduction? appreciate cards assistance Restart metoprolol 12.5 BID 07/17. Uptitrate as possible - BPs low overnight 07/17 Hold KASSANDRA/ARB in setting of renal failure Has not needed further diuresis (3) Lactic acidosis Comment: Unclear preciptant Was on metformin however only 1000mg for several days Possible decompensated HF in setting of dehydration and infection (PNA) Resolved (4) Acute kidney failure Comment: Improving (5) Valvular disease Comment: MR, , AI worsening severe systolic dysfunction (6) Diabetes Comment: basal bolus insulin lantus increased by 2 units 07/18 (7) Transaminitis Comment: suspect congestive hepatopathy improving (8) DVT prophylaxis Comment: HSQ
[2017-07-18] MEDS: Omeprazole CAP* 20 MG PO SCH (09:46)
[2017-07-18] MEDS: Folic Acid TAB* 1 MG PO SCH (09:46)
[2017-07-18] MEDS: Aspirin Low Dose CHEW TAB* 81 MG PO SCH (09:46)
[2017-07-18] MEDS: Atorvastatin* 20 MG TAB PO SCH (09:46)
[2017-07-18] MEDS: Metoprolol Tartrate TAB* 25 MG PO SCH ×2 (09:51→20:24)
[2017-07-18] MEDS: Insulin LISPRO* 1 UNITS UNIT SUBCUT SCH ×6 (09:51→18:00)
[2017-07-18] MEDS: Insulin GLARGINE(*) 1 UNITS UNIT SUBCUT SCH (09:52)
[2017-07-18] MEDS: Vancomycin(*) 750 MG in NS 0.9% 250 ML* 250 ML IVPB SCH ×2 (10:36→22:15)
[2017-07-19] MEDS: Cefepime(*) 1 GM in D5W 50 ML BAG* 50 ML IVPB SCH ×2 (05:19→17:45)
[2017-07-19] MEDS: Heparin VIAL(*) 5000 UNITS/ML VIAL (FIVE THOUSAND) SUBCUT SCH ×3 (05:24→21:55)
[2017-07-19] MEDS ORDERED: Albuterol/Ipratropium NEB.SOL* Albuterol 2.5 MG/Ipratropium 0.5 MG 3 ML INH ONE (07:00)
[2017-07-19] MEDS: Omeprazole CAP* 20 MG PO SCH (08:54)
[2017-07-19] MEDS: Insulin LISPRO* 1 UNITS UNIT SUBCUT SCH ×6 (08:55→18:50)
[2017-07-19] MEDS: Atorvastatin* 20 MG TAB PO SCH (08:55)
[2017-07-19] MEDS: Metoprolol Tartrate TAB* 25 MG PO SCH ×2 (08:55→20:47)
[2017-07-19] MEDS: Aspirin Low Dose CHEW TAB* 81 MG PO SCH (08:55)
[2017-07-19] MEDS: Folic Acid TAB* 1 MG PO SCH (08:55)
[2017-07-19] MEDS: Insulin GLARGINE(*) 1 UNITS UNIT SUBCUT SCH (08:56)
[2017-07-19] MEDS ORDERED: Vancomycin Trough Check NOTE FOLLOW UP ONE (10:00)
[2017-07-19] MEDS: Vancomycin(*) 750 MG in NS 0.9% 250 ML* 250 ML IVPB SCH (10:48)
[2017-07-19] MEDS ORDERED: Furosemide IV* 10 MG/ML 2 ML VIAL (20 MG) IV SLOW PU ONE ×2 (11:00→16:16)
--- NOTE | 2017-07-19 13:32 | RAD ---
HISTORY: Hypoxic respiratory failure COMPARISONS: July 15, 2017 VIEWS: 4: Frontal dual-energy and lateral views of the chest. FINDINGS: CARDIOMEDIASTINAL SILHOUETTE: The cardiomediastinal silhouette is normal. DIMA: The dima are normal. PLEURA: There is a small right pleural effusion. LUNG PARENCHYMA: There is persistent patchy alveolar opacification the periphery of the right upper lobe as noted on the previous chest x-ray CT. ABDOMEN: The upper abdomen is clear. There is no subphrenic gas. BONES AND SOFT TISSUES: No bone or soft tissue abnormalities are noted. OTHER: None. IMPRESSION: SMALL RIGHT PLEURAL EFFUSION WITH PERSISTENT RIGHT UPPER LUNG CONSOLIDATION. RECOMMEND FOLLOW-UP UNTIL RESOLUTION TO EXCLUDE UNDERLYING PULMONARY PARENCHYMAL PATHOLOGY.
--- NOTE | 2017-07-19 16:55 | PN ---
Subjective Date of Service: 07/19/17 Interval History: RN reported increased SOB throughout day Pt reports varying SOB. Many times improved upon my arrival +cough but unable to expectorate sputum Denies CP Concerned about weight increase and LE swelling Objective Active Medications: Aspirin (Aspirin Low Dose Tab*) 81 mg PO DAILY ON [facility] OF [facility] Last Admin: 07/19/17 08:55 Dose: 81 mg Atorvastatin Calcium (Lipitor*) 20 mg PO DAILY ON [facility] OF [facility] Last Admin: 07/19/17 08:55 Dose: 20 mg Dextrose (D50w Syringe 50 Ml*) 25 gm IV PUSH ONCE PRN PRN Reason: FS < 60 Dextrose (D50w Syringe 50 Ml*) 12.5 gm IV PUSH .FOR FS < 60 - SS PRN PRN Reason: FS < 60 Folic Acid (Folvite Tab*) 1 mg PO DAILY ON [facility] OF [facility] Last Admin: 07/19/17 08:55 Dose: 1 mg Furosemide (Lasix Tab*) 20 mg PO DAILY ON [facility] Heparin Sodium (Porcine) (Heparin Vial(*)) 5,000 units SUBCUT Q8HR ON [facility] OF [facility] Last Admin: 07/19/17 13:12 Dose: 5,000 units Cefepime HCl 1 gm/ Dextrose 50 mls @ 100 mls/hr IVPB Q12H ON [facility] OF [facility] Last Admin: 07/19/17 05:19 Dose: 100 mls/hr Vancomycin HCl 1,250 mg/ (Sodium Chloride) 250 mls @ 166.667 mls/hr IVPB Q24H ON [facility] OF [facility] Insulin Glargine (Lantus(*)) 17 units SUBCUT Q24H ON [facility] OF [facility] Last Admin: 07/19/17 08:56 Dose: 17 units Insulin Human Lispro (Humalog*) 0 units SUBCUT [facility] PRN Reason: Protocol Last Admin: 07/19/17 13:12 Dose: 1 units Insulin Human Lispro (Humalog*) 0 units SUBCUT AC ON [facility] OF [facility] PRN Reason: Protocol Last Admin: 07/19/17 13:13 Dose: Not Given Metoprolol Tartrate (Lopressor Tab*) 12.5 mg PO Q12HR ON [facility] OF [facility] Last Admin: 07/19/17 08:55 Dose: 12.5 mg Omeprazole (Prilosec Cap*) 20 mg PO DAILY ON [facility] OF [facility] Last Admin: 07/19/17 08:54 Dose: 20 mg Pharmacy Consult (Vancomycin Per Pharmacy*) 1 note FOLLOW UP . PRN PRN Reason: PER PROTOCOL Pharmacy Profile Note (Vancomycin Trough Check) 1 note FOLLOW UP ONCE ONE Stop: 07/21/17 09:31 Vital Signs - 8 hr 07/19/17 07/19/17 07/19/17 11:34 12:57 15:19 Temperature 97.3 F 97.4 F Pulse Rate 88 106 Respiratory 20 20 35 Rate Blood Pressure 103/49 110/52 (mmHg) O2 Sat by Pulse 88 Oximetry Oxygen Devices in Use Now: Nasal Cannula Appearance: older than stated age, NAD, accessory muscle of respiration use Eyes: No Scleral Icterus, PERRLA Ears/Nose/Mouth/Throat: Clear Oropharnyx, Mucous Membranes Moist Neck: NL Appearance and Movements; NL JVP, Trachea Midline Respiratory: Symmetrical Chest Expansion and Respiratory Effort, - - rhonci in left and right bases, no rales Cardiovascular: RRR Abdominal: NL Sounds; No Tenderness; No Distention, No Hepatosplenomegaly Lymphatic: No Cervical Adenopathy Extremities: - - 1+ LE edema Neurological: Alert and Oriented x 3, - - [id number] Result Diagrams: 07/18/17 04:51 07/18/17 04:51 Additional Lab and Data: Lab Results 07/15/17 07/15/17 07/15/17 Range/Units 15:09 15:09 15:09 WBC 21.0 H (3.5-10.8) 10^3/ul RBC 2.91 L (4.0-5.4) 10^6/ul Hgb 9.6 L (14.0-18.0) g/dl Hct 30 L (42-52) % MCV 102 H (80-94) fL MCH 33 H (27-31) pg MCHC 32 (31-36) g/dl RDW 23 H (10.5-15) % Plt Count 608 H (150-450) 10^3/ul MPV 9 (7.4-10.4) um3 Neut % (Auto) 89.2 H (38-83) % Lymph % (Auto) 5.0 L (25-47) % [place] % (Auto) 5.4 (1-9) % Eos % (Auto) 0.1 (0-6) % Baso % (Auto) 0.3 (0-2) % Absolute Neuts (auto) 18.7 H (1.5-7.7) 10^3/ul Absolute Lymphs (auto) 1.1 (1.0-4.8) 10^3/ul Absolute Monos (auto) 1.1 H (0-0.8) 10^3/ul Absolute Eos (auto) 0 (0-0.6) 10^3/ul Absolute Basos (auto) 0.1 (0-0.2) 10^3/ul Absolute Nucleated RBC 0 10^3/ul Nucleated RBC % 0.1 INR (Anticoag Therapy) (0.77-1.02) D-Dimer, Quantitative (Less Than 230) ng/mL Sodium 133 (133-145) mmol/L Potassium 5.9 H (3.5-5.0) mmol/L Chloride 96 L (101-111) mmol/L Carbon Dioxide 14 L* (22-32) mmol/L Anion Gap 23 H (2-11) mmol/L BUN 59 H (6-24) mg/dL Creatinine 2.84 H (0.67-1.17) mg/dL Est GFR ( Amer) 28.0 (>60) Est GFR (Non-Af Amer) 21.8 (>60) BUN/Creatinine Ratio 20.8 H (8-20) Glucose 321 H (70-100) mg/dL Lactic Acid (0.5-2.0) mmol/L Calcium 9.7 (8.6-10.3) mg/dL Total Bilirubin 2.90 H (0.2-1.0) mg/dL AST 542 H (13-39) U/L ALT 332 H (7-52) U/L Alkaline Phosphatase 90 (34-104) U/L Troponin I 0.78 H* (<0.04) ng/mL C-Reactive Protein 33.82 H (< 5.00) mg/L B-Natriuretic Peptide 3684 H ( - 100) pg/mL Total Protein 7.4 (6.4-8.9) g/dL Albumin 3.6 (3.2-5.2) g/dL Globulin 3.8 (2-4) g/dL Albumin/Globulin Ratio 0.9 L (1-3) 07/15/17 07/15/17 Range/Units 15:09 15:09 WBC (3.5-10.8) 10^3/ul RBC (4.0-5.4) 10^6/ul Hgb (14.0-18.0) g/dl Hct (42-52) % MCV (80-94) fL MCH (27-31) pg MCHC (31-36) g/dl RDW (10.5-15) % Plt Count (150-450) 10^3/ul MPV (7.4-10.4) um3 Neut % (Auto) (38-83) % Lymph % (Auto) (25-47) % [place] % (Auto) (1-9) % Eos % (Auto) (0-6) % Baso % (Auto) (0-2) % Absolute Neuts (auto) (1.5-7.7) 10^3/ul Absolute Lymphs (auto) (1.0-4.8) 10^3/ul Absolute Monos (auto) (0-0.8) 10^3/ul Absolute Eos (auto) (0-0.6) 10^3/ul Absolute Basos (auto) (0-0.2) 10^3/ul Absolute Nucleated RBC 10^3/ul Nucleated RBC % INR (Anticoag Therapy) 1.48 H (0.77-1.02) D-Dimer, Quantitative > 1050 H (Less Than 230) ng/mL Sodium (133-145) mmol/L Potassium (3.5-5.0) mmol/L Chloride (101-111) mmol/L Carbon Dioxide (22-32) mmol/L Anion Gap (2-11) mmol/L BUN (6-24) mg/dL Creatinine (0.67-1.17) mg/dL Est GFR ( Amer) (>60) Est GFR (Non-Af Amer) (>60) BUN/Creatinine Ratio (8-20) Glucose (70-100) mg/dL Lactic Acid 11.5 H* (0.5-2.0) mmol/L Calcium (8.6-10.3) mg/dL Total Bilirubin (0.2-1.0) mg/dL AST (13-39) U/L ALT (7-52) U/L Alkaline Phosphatase (34-104) U/L Troponin I (<0.04) ng/mL C-Reactive Protein (< 5.00) mg/L B-Natriuretic Peptide ( - 100) pg/mL Total Protein (6.4-8.9) g/dL Albumin (3.2-5.2) g/dL Globulin (2-4) g/dL Albumin/Globulin Ratio (1-3) Microbiology and Other Data: Microbiology 07/15/17 21:35 Nasal Screen MRSA (PCR)(RASHAAD) - Final Nasal Mrsa Not Detected 07/15/17 22:20 Stool Occult Blood (RASHAAD) - Final Stool 07/15/17 19:28 Influenza Types A,B Antigen (RASHAAD) - Final Nasal Specimen received for Influenza A/B Molecular testing Assess/Plan/Problems-Billing Assessment: 77 yo M recent hospital stay requiring intubation returned to [facility] with SOB found with profound lactic acidosis, respiratory failure requiring NIPPV and decompensated heart failure (EF 25-30, mod-sev MR, mod , mod-sev TR) - Patient Problems (1) Pneumonia Comment: PNA vs possible malignancy on CT in setting of leukocytosis improving on ABx Difficult to appreciate on CXR on admission continues on cefepime/Vanco and improving clinically Was discharged on cefpodoxime from last hospital stay. Favor full course of abx given presenting critical illness Increased work today suspected in setting of mucous plugging and difficulty clearing airways. Start chest PT and flutter valve (2) Acute combined systolic (congestive) and diastolic (congestive) heart failure Comment: Valvular disease worse compared to last stay at [place] Improved with BiPAP, maybe afterload reduction? appreciate cards assistance Restart metoprolol 12.5 BID 07/17 then increased to 25mg BID 07/19. Uptitrate as possible Hold KASSANDRA/ARB in setting of renal failure Received IV lasix 07/19 with minimal output. Start lasix 20mg PO daily 07/20 (3) Lactic acidosis Comment: Unclear precipitant Was on metformin however only 1000mg for several days Possible decompensated HF in setting of dehydration and infection (PNA) Resolved (4) Acute kidney failure Comment: Improving (5) Valvular disease Comment: MR, , AI worsening severe systolic dysfunction (6) Diabetes Comment: basal bolus insulin lantus increased by 2 units 07/18 (7) Transaminitis Comment: suspect congestive hepatopathy improving (8) DVT prophylaxis Comment: HSQ Status and Disposition: Duration of IV abx to be determined by clinical course Ambulating but becoming weaker. May avoid USMAN depending on resolution of illness
[2017-07-20] MEDS: Cefepime(*) 1 GM in D5W 50 ML BAG* 50 ML IVPB SCH ×2 (05:40→17:37)
[2017-07-20] MEDS: Heparin VIAL(*) 5000 UNITS/ML VIAL (FIVE THOUSAND) SUBCUT SCH ×3 (05:46→21:45)
[2017-07-20 08:10] LABS: EGFR Non-African American 26.7 (>60)
[2017-07-20 08:24] LABS: ABS Basophils 0 10^3/ul (0-0.2); ABS Eosinophils 0 10^3/ul (0-0.6); ABS Lymphocytes 0.9 10^3/ul (1.0-4.8); ABS Monocytes 0.8 10^3/ul (0-0.8); ABS Neutrophils 11.7 10^3/ul (1.5-7.7); ABS Nucleated RBC 0 10^3/ul; Eosinophil % 0.1 % (0-6); Hematocrit 27 % (42-52); Lymphocyte % 6.9 % (25-47); Mean Corpuscular HGB Conc 33 g/dl (31-36); Mean Corpuscular Hemoglobin 33 pg (27-31); Mean Corpuscular Volume 100 fL (80-94); Mean Platelet Volume 9 um3 (7.4-10.4); Nucleated Red Blood Cells % 0.2; Platelet Count 276 10^3/ul (150-450); Red Blood Count 2.75 10^6/ul (4.0-5.4); Red Cell Distribution Width 23 % (10.5-15); White Blood Count 13.5 10^3/ul (3.5-10.8)
[2017-07-20] MEDS ORDERED: Furosemide TAB* 20 MG PO SCH (09:00)
[2017-07-20] MEDS: Insulin LISPRO* 1 UNITS UNIT SUBCUT SCH ×6 (09:09→17:47)
[2017-07-20] MEDS: Folic Acid TAB* 1 MG PO SCH (09:14)
[2017-07-20] MEDS: Aspirin Low Dose CHEW TAB* 81 MG PO SCH (09:14)
[2017-07-20] MEDS: Metoprolol Tartrate TAB* 25 MG PO SCH ×2 (09:14→21:44)
[2017-07-20] MEDS: Omeprazole CAP* 20 MG PO SCH (09:14)
[2017-07-20] MEDS: Atorvastatin* 20 MG TAB PO SCH (09:14)
[2017-07-20] MEDS: Vancomycin(*) 1,250 MG in NS 0.9% 250 ML* 250 ML IVPB SCH (10:47)
--- NOTE | 2017-07-20 11:44 | PN ---
Subjective Date of Service: 07/20/17 - CC: SOB Interval History: Per patient breathing is better. The patient states he plans to stay in [place] where his son lives until his health/breathing issues are stabilized, fixed. Medications Active Medications: Aspirin (Aspirin Low Dose Tab*) 81 mg PO DAILY [facility] Last Admin: 07/20/17 09:14 Dose: 81 mg Atorvastatin Calcium (Lipitor*) 20 mg PO DAILY [facility] Last Admin: 07/20/17 09:14 Dose: 20 mg Dextrose (D50w Syringe 50 Ml*) 25 gm IV PUSH ONCE PRN PRN Reason: FS < 60 Dextrose (D50w Syringe 50 Ml*) 12.5 gm IV PUSH .FOR FS < 60 - SS PRN PRN Reason: FS < 60 Folic Acid (Folvite Tab*) 1 mg PO DAILY [facility] Last Admin: 07/20/17 09:14 Dose: 1 mg Furosemide (Lasix Tab*) 20 mg PO DAILY [facility] Last Admin: 07/20/17 09:14 Dose: 20 mg Heparin Sodium (Porcine) (Heparin Vial(*)) 5,000 units SUBCUT Q8HR [facility] Last Admin: 07/20/17 05:46 Dose: 5,000 units Cefepime HCl 1 gm/ Dextrose 50 mls @ 100 mls/hr IVPB Q12H [facility] Last Admin: 07/20/17 05:40 Dose: 100 mls/hr Vancomycin HCl 1,250 mg/ (Sodium Chloride) 250 mls @ 166.667 mls/hr IVPB Q24H [facility] Last Admin: 07/20/17 10:47 Dose: 166.667 mls/hr Insulin Human Lispro (Humalog*) 0 units SUBCUT AC [facility] PRN Reason: Protocol Last Admin: 07/20/17 09:09 Dose: Not Given Insulin Human Lispro (Humalog*) 0 units SUBCUT AC [facility] PRN Reason: Protocol Last Admin: 07/20/17 09:14 Dose: 3 units Metoprolol Tartrate (Lopressor Tab*) 25 mg PO BID [facility] Last Admin: 07/20/17 09:14 Dose: 25 mg Omeprazole (Prilosec Cap*) 20 mg PO DAILY [facility] Last Admin: 07/20/17 09:14 Dose: 20 mg Pharmacy Consult (Vancomycin Per Pharmacy*) 1 note FOLLOW UP . PRN PRN Reason: PER PROTOCOL Pharmacy Profile Note (Vancomycin Trough Check) 1 note FOLLOW UP ONCE ONE Stop: 07/21/17 09:31 Objective Vital Signs: Temp Pulse Resp BP Pulse Ox 97.3 F 78 22 96/47 95 07/20/17 07:32 07/20/17 07:54 07/20/17 07:54 07/20/17 07:32 07/20/17 07:54 Oxygen Devices in Use Now: Nasal Cannula Appearance: lean elderely gentleman lying 40 degrees, quite tachypnic at rest with NC on. Eyes: No Scleral Icterus, PERRLA Ears/Nose/Mouth/Throat: Clear Oropharnyx, Mucous Membranes Moist Neck: Trachea Midline Respiratory: - - rhochorous cough, junky loud breath sounds diffusely, but improved. Cardiovascular: RRR - +SM heard LSB, PMI displaced left and prominant. Abdominal: - - Liver border enlarged. +BS, firm. Extremities: - - trace edema. Skin: No Rash or Ulcers Neurological: Alert and Oriented x 3 - follows commands, speech is articulate. Lines/Tubes/Other Access: Clean, Dry and Intact Peripheral IV Laboratory Results: 07/20/17 07:22 07/20/17 07:22 INR (Anticoag Therapy) 1.65 (0.77-1.02) H 07/16/17 06:30 Total Bilirubin 1.40 mg/dL (0.2-1.0) H 07/18/17 04:51 Direct Bilirubin 0.60 mg/dL (0.03-0.18) H 07/18/17 04:51 Indirect Bilirubin 0.8 mg/dL (0.3-1.0) 07/18/17 04:51 AST 136 U/L (13-39) H 07/18/17 04:51 ALT 275 U/L (7-52) H 07/18/17 04:51 Alkaline Phosphatase 74 U/L (34-104) 07/18/17 04:51 B-Natriuretic Peptide 3684 pg/mL (-100) H 07/15/17 15:09 Total Protein 5.9 g/dL (6.4-8.9) L 07/18/17 04:51 Albumin 2.8 g/dL (3.2-5.2) L 07/18/17 04:51 Globulin 3.1 g/dL (2-4) 07/18/17 04:51 Albumin/Globulin Ratio 0.9 (1-3) L 07/18/17 04:51 07/15/17 07/15/17 18:32 22:00 Troponin I 0.72 H* 0.66 H* Diagnostic Imaging: CTA chest/abd/pelvis per Dr. Aranda: +lung mass (pneumonia vs. malignancy), possible malignacy in colon, pleural effusions and ascites noted. Additional finding in full report. ECHO 07/15/17: EF 30%, PAPr 80 mmHg. EKG Data: Sinus rhythm, 80 bpm Assessment/Plan 77 yo with ischemic CM, per [place] notes son reported a decrease in lasix and pt noted increased SOB and LE edema. In [place] pt found in BiV CHF at that time and CXR revealed pneumonia. Anemic on that admission. Very high LFT' s, improved. CO2 retainer there. Pt now admitted [place] [facility] with recurrent PAN, marked, again appears in BiV CHF and management complicated by marked RI. Concern on imaging of possible malignancy (lungs/GI). Comorbidities include: COPD, anemia, CAD, bladder Cancer/renal mets (per old records), DM, HTN. Agree with Dr. Hamilton ACEI/ARB contraindicated now. CM: On toprol, renal function and BP make ACEI/ARB suboptimal now, but consider decreasing diuretics, trial of Ramapril 1.25 or 2.5 hs. I don't feel the patient is currently a candidate for invasive measures. As patient states he plans to stay in [place] until health is stabilized, consider getting definitive diagnosis of lung mass (pneumonia vs. other mass/ possible malignancy), indepth evaluation of anemia and other comorbidities.
[2017-07-20] MEDS: Torsemide TAB* 20 MG PO SCH (15:49)
[2017-07-20 17:42] LABS: Urine Appearance Cloudy; Urine Blood 2+ (Negative); Urine Color Amber; Urine Ketones Trace (Negative); Urine Protein 1+(30 mg/dL) (Negative); Urine Specific Gravity 1.013 (1.010-1.030); Urine Urobilinogen Negative (Negative)
--- NOTE | 2017-07-20 19:04 | PN ---
Subjective Date of Service: 07/20/17 Interval History: PEARL FISHERMAN jumped to 2.38 from 1.52. Down to 3L NC. bringing up more of the yellow sputum. WBC up. K 5.4. hypotensive, unable to give additional torsemide in afternoon. [place] in [place]. States weight was 164 prior to [facility], 171 today. Feels like leg swelling getting better. 3 days at home, CC PAN. Dr. Garcia is PCP Dr. Daniel is Oncologist. s/p 2 renal biopsies, reportedly clean by pt colonsocopy last year, also clean per pt. no pains anywhere. glu 63 on BMP. lantus 17U held. Objective Active Medications: Aspirin (Aspirin Low Dose Tab*) 81 mg PO DAILY [facility] Last Admin: 07/20/17 09:14 Dose: 81 mg Atorvastatin Calcium (Lipitor*) 20 mg PO DAILY [facility] Last Admin: 07/20/17 09:14 Dose: 20 mg Dextrose (D50w Syringe 50 Ml*) 25 gm IV PUSH ONCE PRN PRN Reason: FS < 60 Dextrose (D50w Syringe 50 Ml*) 12.5 gm IV PUSH .FOR FS < 60 - SS PRN PRN Reason: FS < 60 Folic Acid (Folvite Tab*) 1 mg PO DAILY [facility] Last Admin: 07/20/17 09:14 Dose: 1 mg Heparin Sodium (Porcine) (Heparin Vial(*)) 5,000 units SUBCUT Q8HR [facility] Last Admin: 07/20/17 13:01 Dose: 5,000 units Cefepime HCl 1 gm/ Dextrose 50 mls @ 100 mls/hr IVPB Q12H [facility] Last Admin: 07/20/17 17:37 Dose: 100 mls/hr Vancomycin HCl 1,250 mg/ (Sodium Chloride) 250 mls @ 166.667 mls/hr IVPB Q24H [facility] Last Admin: 07/20/17 10:47 Dose: 166.667 mls/hr Insulin Human Lispro (Humalog*) 0 units SUBCUT AC [facility] PRN Reason: Protocol Last Admin: 07/20/17 17:47 Dose: Not Given Insulin Human Lispro (Humalog*) 0 units SUBCUT AC [facility] PRN Reason: Protocol Last Admin: 07/20/17 17:37 Dose: 2 units Metoprolol Tartrate (Lopressor Tab*) 25 mg PO BID [facility] Last Admin: 07/20/17 09:14 Dose: 25 mg Omeprazole (Prilosec Cap*) 20 mg PO DAILY [facility] Last Admin: 07/20/17 09:14 Dose: 20 mg Pharmacy Consult (Vancomycin Per Pharmacy*) 1 note FOLLOW UP . PRN PRN Reason: PER PROTOCOL Pharmacy Profile Note (Vancomycin Trough Check) 1 note FOLLOW UP ONCE ONE Stop: 07/21/17 09:31 Torsemide (Demadex*) 40 mg PO DAILY [facility] Last Admin: 07/20/17 15:49 Dose: Not Given Vital Signs - 8 hr 07/20/17 07/20/17 07/20/17 12:00 12:22 13:59 Temperature 97.9 F Pulse Rate 66 77 Respiratory 44 44 16 Rate Blood Pressure 91/52 (mmHg) O2 Sat by Pulse 100 100 Oximetry 07/20/17 15:12 Temperature 97.5 F Pulse Rate 70 Respiratory 40 Rate Blood Pressure 87/45 (mmHg) O2 Sat by Pulse 100 Oximetry Oxygen Devices in Use Now: Nasal Cannula Appearance: NAD, sitting in chair eating lunch. Eyes: PERRLA, - - trace icterus Neck: Trachea Midline, - - JVD+ Respiratory: - - rhonchi, no wheezing. Cardiovascular: - - JVD+, JEAN, RRR Abdominal: NL Sounds; No Tenderness; No Distention, No Hepatosplenomegaly Extremities: - - 1-2+ edema in LE, trace in dependent thigh. Skin: No Rash or Ulcers, No Nodules or Sclerosis Neurological: Alert and Oriented x 3 Nutrition: Taking PO's Result Diagrams: 07/20/17 07:22 07/20/17 07:22 Additional Lab and Data: Laboratory Results - last 24 hr 07/20/17 07/20/17 07/20/17 07:22 07:22 07:47 WBC 13.5 H RBC 2.75 L Hgb 9.0 L Hct 27 L MCV 100 H MCH 33 H MCHC 33 RDW 23 H Plt Count 276 MPV 9 Neut % (Auto) 87.0 H Lymph % (Auto) 6.9 L [place] % (Auto) 5.6 Eos % (Auto) 0.1 Baso % (Auto) 0.4 Absolute Neuts (auto) 11.7 H Absolute Lymphs (auto) 0.9 L Absolute Monos (auto) 0.8 Absolute Eos (auto) 0 Absolute Basos (auto) 0 Absolute Nucleated RBC 0 Nucleated RBC % 0.2 Sodium 130 L Potassium 5.4 H D Chloride 97 L Carbon Dioxide 22 Anion Gap 11 BUN 62 H Creatinine 2.38 H Est GFR ( Amer) 34.4 Est GFR (Non-Af Amer) 26.7 BUN/Creatinine Ratio 26.1 H Glucose 63 L POC Glucose (mg/dL) 73 Calcium 8.6 Urine Color Urine Appearance Urine pH Ur Specific [place] Urine Protein Urine Ketones Urine Blood Urine Nitrate Urine Bilirubin Urine Urobilinogen Ur Leukocyte Esterase Urine WBC (Auto) Urine RBC (Auto) Ur Squamous Epith Cells Ur Renal Epithelial Cell Urine Bacteria Hyaline Casts Ur Random Creatinine Ur Random Urea Nitrogn Urine Glucose 07/20/17 07/20/17 07/20/17 11:48 16:40 17:30 WBC RBC Hgb Hct MCV MCH MCHC RDW Plt Count MPV Neut % (Auto) Lymph % (Auto) [place] % (Auto) Eos % (Auto) Baso % (Auto) Absolute Neuts (auto) Absolute Lymphs (auto) Absolute Monos (auto) Absolute Eos (auto) Absolute Basos (auto) Absolute Nucleated RBC Nucleated RBC % Sodium Potassium Chloride Carbon Dioxide Anion Gap BUN Creatinine Est GFR ( Amer) Est GFR (Non-Af Amer) BUN/Creatinine Ratio Glucose POC Glucose (mg/dL) 83 135 H Calcium Urine Color Sandra Urine Appearance Cloudy Urine pH 5.0 Ur Specific [place] 1.013 Urine Protein 1+(30 mg/dl) H Urine Ketones Trace H Urine Blood 2+ H Urine Nitrate Negative Urine Bilirubin Negative Urine Urobilinogen Negative Ur Leukocyte Esterase Negative Urine WBC (Auto) 3+(>20/hpf) H Urine RBC (Auto) 2+(6-10/hpf) H Ur Squamous Epith Cells Present H Ur Renal Epithelial Cell Present H Urine Bacteria 1+ H Hyaline Casts Present H Ur Random Creatinine Ur Random Urea Nitrogn Urine Glucose Negative 07/20/17 07/20/17 17:30 20:41 WBC RBC Hgb Hct MCV MCH MCHC RDW Plt Count MPV Neut % (Auto) Lymph % (Auto) [place] % (Auto) Eos % (Auto) Baso % (Auto) Absolute Neuts (auto) Absolute Lymphs (auto) Absolute Monos (auto) Absolute Eos (auto) Absolute Basos (auto) Absolute Nucleated RBC Nucleated RBC % Sodium Potassium Chloride Carbon Dioxide Anion Gap BUN Creatinine Est GFR ( Amer) Est GFR (Non-Af Amer) BUN/Creatinine Ratio Glucose POC Glucose (mg/dL) 121 H Calcium Urine Color Urine Appearance Urine pH Ur Specific [place] Urine Protein Urine Ketones Urine Blood Urine Nitrate Urine Bilirubin Urine Urobilinogen Ur Leukocyte Esterase Urine WBC (Auto) Urine RBC (Auto) Ur Squamous Epith Cells Ur Renal Epithelial Cell Urine Bacteria Hyaline Casts Ur Random Creatinine 137.06 Ur Random Urea Nitrogn 428 Urine Glucose Microbiology and Other Data: Microbiology 07/15/17 15:09 Blood Venous Aerobic Blood Culture - Final No Growth Day 5 07/15/17 15:09 Blood Venous Anaerobic Blood Culture - Final No Growth Day 5 07/15/17 15:17 Blood Venous Aerobic Blood Culture - Final No Growth Day 5 07/15/17 21:35 Nasal Nasal Screen MRSA (PCR)(RASHAAD) - Final Mrsa Not Detected 07/15/17 22:20 Stool Stool Occult Blood (RASHAAD) - Final 07/15/17 19:28 Nasal Influenza Types A,B Antigen (RASHAAD) - Final Specimen received for Influenza A/B Molecular testing Assess/Plan/Problems-Billing Assessment: 77 yo M PMH [place], HTN, DMT2, bladder ca on BCG, 60 pack years and recent (07/06-07/12 ) hospital stay requiring intubation p/w from son's home w/ SOB, lactic acidosis 11.5, respiratory failure requiring NIPPV and decompensated heart failure (EF 25-30%, mod-sev MR, mod , mod-sev TR). RUL opacity ?malignancy. segmental bowel wall thickening. BNP 3684. AMANDA. Colonscopy 1 year prior. On cefepmine, vanc empirically. - Patient Problems (1) Acute combined systolic (congestive) and diastolic (congestive) heart failure Current Visit: Yes Status: Acute Code(s): I50.41 - ACUTE COMBINED SYSTOLIC AND DIASTOLIC (CONGESTIVE) HRT FAIL SNOMED Code(s): 801134718034986 Comment: Valvular disease worse compared to last stay at [facility] appreciate cards recs. Restart metoprolol 12.5 BID 07/17 then increased to 25mg BID 07/19. Uptitrate as possible Hold KASSANDRA/ARB in setting of renal failure Received IV lasix 07/19 with minimal output. Start tosemide 40mg daily BNP 3684 (2) Right upper lobe consolidation Current Visit: Yes Status: Acute Code(s): J18.1 - LOBAR PNEUMONIA, UNSPECIFIED ORGANISM SNOMED Code(s): 72030610 Comment: concern for possible malignancy. Pulm consult when more stabilized. (3) Acute kidney failure Current Visit: Yes Status: Acute Comment: worse today. FeUrea 12%, prerenal. (4) DVT prophylaxis Current Visit: Yes Status: Acute Code(s): YRD0692 - SNOMED Code(s): 948252192 Comment: HSQ (5) Diabetes Current Visit: Yes Status: Acute Code(s): E11.9 - TYPE 2 DIABETES MELLITUS WITHOUT COMPLICATIONS SNOMED Code(s): 39745697 Comment: hold lantus 17U given hypoglycemic to 63. add a1c SSI lispro. qachs POCT (6) Lactic acidosis Current Visit: Yes Status: Acute Code(s): E87.2 - ACIDOSIS SNOMED Code(s) : 49847525 Comment: Unclear precipitant Was on metformin however only 1000mg for several days Possible decompensated HF in setting of dehydration and infection (PNA) Resolved (7) Pneumonia Current Visit: Yes Status: Acute Code(s): J18.9 - PNEUMONIA, UNSPECIFIED ORGANISM SNOMED Code(s): 266293222 Comment: PNA vs possible malignancy on CT in setting of leukocytosis improving on ABx continues on cefepime/Vanco and improving clinically Was discharged on cefpodoxime from last hospital stay. Favor full course of abx given presenting critical illness chest PT and flutter valve (8) Transaminitis Current Visit: Yes Status: Acute Code(s): R74.0 - NONSPEC ELEV OF LEVELS OF TRANSAMNS & LACTIC ACID DEHYDRGNSE SNOMED Code(s): 360714621 Comment: suspect congestive hepatopathy improving (9) Valvular disease Current Visit: Yes Status: Acute Comment: MR, , AI worsening severe systolic dysfunction (10) Anemia Current Visit: Yes Status: Acute Code(s): D64.9 - ANEMIA, UNSPECIFIED SNOMED Code(s): 511294227 Comment: macrocytic, high RDW f/u b12,folate Status and Disposition: medicine inpatient
[2017-07-21 05:16] LABS: ABS Basophils 0.1 10^3/ul (0-0.2); ABS Eosinophils 0.1 10^3/ul (0-0.6); ABS Lymphocytes 0.8 10^3/ul (1.0-4.8); ABS Monocytes 0.8 10^3/ul (0-0.8); ABS Neutrophils 9.1 10^3/ul (1.5-7.7); ABS Nucleated RBC 0 10^3/ul; Eosinophil % 0.5 % (0-6); Hematocrit 26 % (42-52); Hemoglobin 9.2 g/dl (14.0-18.0); Lymphocyte % 7.1 % (25-47); Mean Corpuscular HGB Conc 35 g/dl (31-36); Mean Corpuscular Hemoglobin 34 pg (27-31); Mean Corpuscular Volume 96 fL (80-94); Mean Platelet Volume 9 um3 (7.4-10.4); Nucleated Red Blood Cells % 0.3; Platelet Count 247 10^3/ul (150-450); Red Blood Count 2.73 10^6/ul (4.0-5.4); Red Cell Distribution Width 22 % (10.5-15); White Blood Count 10.8 10^3/ul (3.5-10.8)
[2017-07-21 05:27] LABS: EGFR Non-African American 24.9 (>60)
[2017-07-21] MEDS: Heparin VIAL(*) 5000 UNITS/ML VIAL (FIVE THOUSAND) SUBCUT SCH ×3 (05:51→20:43)
[2017-07-21] MEDS: Cefepime(*) 1 GM in D5W 50 ML BAG* 50 ML IVPB SCH ×2 (05:51→17:29)
[2017-07-21] MEDS: Insulin LISPRO* 1 UNITS UNIT SUBCUT SCH ×6 (07:48→17:28)
[2017-07-21] MEDS: Metoprolol Tartrate TAB* 25 MG PO SCH ×2 (08:50→20:43)
[2017-07-21] MEDS: Omeprazole CAP* 20 MG PO SCH (08:52)
[2017-07-21] MEDS: Atorvastatin* 20 MG TAB PO SCH (08:52)
[2017-07-21] MEDS: Aspirin Low Dose CHEW TAB* 81 MG PO SCH (08:52)
[2017-07-21] MEDS: Folic Acid TAB* 1 MG PO SCH (08:52)
[2017-07-21] MEDS: Torsemide TAB* 20 MG PO SCH (08:53)
[2017-07-21] MEDS ORDERED: Vancomycin Trough Check NOTE FOLLOW UP ONE (09:30)
[2017-07-21] MEDS: Vancomycin(*) 1,250 MG in NS 0.9% 250 ML* 250 ML IVPB SCH (10:25)
--- NOTE | 2017-07-21 13:27 | PN ---
Subjective Date of Service: 07/21/17 - CC: coughing, SOB, not sleeping well. Interval History: Per patient breathing continues to improve. He is coughing a lot and bringing up a lot of sputum, he thinks this is good. He can't sleep well at night due to coughing. Medications Active Medications: Aspirin (Aspirin Low Dose Tab*) 81 mg PO DAILY [facility] Last Admin: 07/21/17 08:52 Dose: 81 mg Atorvastatin Calcium (Lipitor*) 20 mg PO DAILY [facility] Last Admin: 07/21/17 08:52 Dose: 20 mg Dextrose (D50w Syringe 50 Ml*) 25 gm IV PUSH ONCE PRN PRN Reason: FS < 60 Dextrose (D50w Syringe 50 Ml*) 12.5 gm IV PUSH .FOR FS < 60 - SS PRN PRN Reason: FS < 60 Folic Acid (Folvite Tab*) 1 mg PO DAILY [facility] Last Admin: 07/21/17 08:52 Dose: 1 mg Heparin Sodium (Porcine) (Heparin Vial(*)) 5,000 units SUBCUT Q8HR [facility] Last Admin: 07/21/17 05:51 Dose: 5,000 units Cefepime HCl 1 gm/ Dextrose 50 mls @ 100 mls/hr IVPB Q12H [facility] Last Admin: 07/21/17 05:51 Dose: 100 mls/hr Vancomycin HCl 1,250 mg/ (Sodium Chloride) 250 mls @ 166.667 mls/hr IVPB Q24H [facility] Last Admin: 07/21/17 10:25 Dose: 166.667 mls/hr Insulin Human Lispro (Humalog*) 0 units SUBCUT [facility] PRN Reason: Protocol Last Admin: 07/21/17 12:13 Dose: Not Given Insulin Human Lispro (Humalog*) 0 units SUBCUT AC [facility] PRN Reason: Protocol Last Admin: 07/21/17 13:01 Dose: 2 units Metoprolol Tartrate (Lopressor Tab*) 25 mg PO BID [facility] Last Admin: 07/21/17 08:50 Dose: 25 mg Omeprazole (Prilosec Cap*) 20 mg PO DAILY [facility] Last Admin: 07/21/17 08:52 Dose: 20 mg Pharmacy Consult (Vancomycin Per Pharmacy*) 1 note FOLLOW UP . PRN PRN Reason: PER PROTOCOL Torsemide (Demadex*) 40 mg PO DAILY [facility] Last Admin: 07/21/17 08:53 Dose: 40 mg Objective Vital Signs: Temp Pulse Resp BP Pulse Ox 98.0 F 80 32 106/50 89 07/21/17 07:16 07/21/17 07:16 07/21/17 08:00 07/21/17 07:16 07/21/17 07:16 Oxygen Devices in Use Now: Nasal Cannula Appearance: lean elderely gentleman lying 40 degrees, quite tachypnic at rest with NC on. Eyes: No Scleral Icterus, PERRLA Ears/Nose/Mouth/Throat: Clear Oropharnyx, Mucous Membranes Moist Neck: Trachea Midline Respiratory: - - rhochorous cough, wet rales in bases. Cardiovascular: RRR - +SM heard LSB. Abdominal: - - Liver border enlarged. +BS, hard to evaluate pulsitility as using abdominal muscles to breath. Extremities: - - trace edema. Skin: No Rash or Ulcers Neurological: Alert and Oriented x 3 - follows commands, speech is articulate. Lines/Tubes/Other Access: Clean, Dry and Intact Peripheral IV Laboratory Results: 07/21/17 05:00 07/21/17 04:59 INR (Anticoag Therapy) 1.65 (0.77-1.02) H 07/16/17 06:30 Total Bilirubin 2.60 mg/dL (0.2-1.0) H 07/21/17 04:59 Direct Bilirubin 0.60 mg/dL (0.03-0.18) H 07/18/17 04:51 Indirect Bilirubin 0.8 mg/dL (0.3-1.0) 07/18/17 04:51 AST 1399 U/L (13-39) H 07/21/17 04:59 ALT 1111 U/L (7-52) H 07/21/17 04:59 Alkaline Phosphatase 112 U/L (34-104) H 07/21/17 04:59 B-Natriuretic Peptide 3684 pg/mL (-100) H 07/15/17 15:09 Total Protein 6.3 g/dL (6.4-8.9) L 07/21/17 04:59 Albumin 2.8 g/dL (3.2-5.2) L 07/21/17 04:59 Globulin 3.5 g/dL (2-4) 07/21/17 04:59 Albumin/Globulin Ratio 0.8 (1-3) L 07/21/17 04:59 07/15/17 07/15/17 18:32 22:00 Troponin I 0.72 H* 0.66 H* Diagnostic Imaging: CTA chest/abd/pelvis per Dr. Aranda: +lung mass (pneumonia vs. malignancy), possible malignacy in colon, pleural effusions and ascites noted. Additional finding in full report. ECHO 07/15/17: EF 30%, PAPr 80 mmHg. EKG Data: Sinus rhythm on montor Assessment/Plan 77 yo with CM, EF 30%, per [place] notes son reported a decrease in lasix and pt noted increased SOB and LE edema. In [place] pt found in [facility] CHF at that time and CXR revealed pneumonia. Anemic on that admission. Very high LFT' s, improved in [place]. CO2 retainer there. Pt now admitted to [facility] with recurrent PAN, marked, again appeared in [facility] CHF and management complicated by marked RI but with less aggressive dieresis LFT's have rebumped. Low BP limits managment as well. Comorbidities include: COPD, severe anemia of unknown etiology, CAD, bladder Cancer/renal mets (per old records), DM, HTN. CM: Continue Toprol. If BP allows try the Rampril today (held yesterday due to low BP). Can try more aggressive dieresis, add zaroxylin to Torsemide-could try zaroxyline 2.5 mg followed by Torsemide 40 mg this afternoon/this evening. With hyponatremia likely won't tolerate aldactone. I don't think his BP would allow Entresto. Will follow work up of anemia and of lung mass (pneumonia or more?), these both impact on CHF and definitive diagnosis could help determine senior living prognosis and treatment goals.
--- NOTE | 2017-07-21 14:38 | PN ---
Subjective Date of Service: 07/21/17 Interval History: Did not sleep at all last 2 nights and irritable as a result. UNDER CUTTER slightly up to 2.53 from 2.38 net positive 625, only 275 uop recorded. B12, folate wnl 3L still. Objective Active Medications: Aspirin (Aspirin Low Dose Tab*) 81 mg PO DAILY [facility] Last Admin: 07/21/17 08:52 Dose: 81 mg Atorvastatin Calcium (Lipitor*) 20 mg PO DAILY [facility] Last Admin: 07/21/17 08:52 Dose: 20 mg Dextrose (D50w Syringe 50 Ml*) 25 gm IV PUSH ONCE PRN PRN Reason: FS < 60 Dextrose (D50w Syringe 50 Ml*) 12.5 gm IV PUSH .FOR FS < 60 - SS PRN PRN Reason: FS < 60 Folic Acid (Folvite Tab*) 1 mg PO DAILY [facility] Last Admin: 07/21/17 08:52 Dose: 1 mg Heparin Sodium (Porcine) (Heparin Vial(*)) 5,000 units SUBCUT Q8HR [facility] Last Admin: 07/21/17 13:29 Dose: 5,000 units Cefepime HCl 1 gm/ Dextrose 50 mls @ 100 mls/hr IVPB Q12H [facility] Last Admin: 07/21/17 05:51 Dose: 100 mls/hr Vancomycin HCl 1,250 mg/ (Sodium Chloride) 250 mls @ 166.667 mls/hr IVPB Q24H [facility] Last Admin: 07/21/17 10:25 Dose: 166.667 mls/hr Insulin Human Lispro (Humalog*) 0 units SUBCUT [facility] PRN Reason: Protocol Last Admin: 07/21/17 12:13 Dose: Not Given Insulin Human Lispro (Humalog*) 0 units SUBCUT AC [facility] PRN Reason: Protocol Last Admin: 07/21/17 13:01 Dose: 2 units Metolazone (Zaroxolyn Tab*) 2.5 mg PO ONCE ONE Stop: 07/21/17 16:01 Metoprolol Tartrate (Lopressor Tab*) 25 mg PO BID [facility] Last Admin: 07/21/17 08:50 Dose: 25 mg Omeprazole (Prilosec Cap*) 20 mg PO DAILY [facility] Last Admin: 07/21/17 08:52 Dose: 20 mg Pharmacy Consult (Vancomycin Per Pharmacy*) 1 note FOLLOW UP . PRN PRN Reason: PER PROTOCOL Torsemide (Demadex*) 40 mg PO DAILY [facility] Last Admin: 07/21/17 08:53 Dose: 40 mg Vital Signs - 8 hr 07/21/17 07/21/17 07/21/17 07:16 08:00 11:01 Temperature 98.0 F 97.4 F Pulse Rate 80 87 Respiratory 32 32 44 Rate Blood Pressure 106/50 99/61 (mmHg) O2 Sat by Pulse 89 79 Oximetry 07/21/17 12:00 Temperature Pulse Rate Respiratory 40 Rate Blood Pressure (mmHg) O2 Sat by Pulse Oximetry Oxygen Devices in Use Now: Nasal Cannula Appearance: NAD. short shallow breaths. Eyes: - - slightly icteric Ears/Nose/Mouth/Throat: NL Teeth, Lips, Gums Respiratory: - - rhonchorous diffusely. Cardiovascular: NL Sounds; No Murmurs; No JVD Extremities: - - 2-3+ edema lower extremities. Skin: No Rash or Ulcers Neurological: Alert and Oriented x 3, NL Sensation, NL Muscle Strength and Tone Nutrition: Taking PO's Result Diagrams: 07/21/17 05:00 07/21/17 04:59 Additional Lab and Data: Laboratory Results - last 24 hr 07/20/17 07/20/17 07/20/17 16:40 17:30 17:30 WBC RBC Hgb Hct MCV MCH MCHC RDW Plt Count MPV Neut % (Auto) Lymph % (Auto) [place] % (Auto) Eos % (Auto) Baso % (Auto) Absolute Neuts (auto) Absolute Lymphs (auto) Absolute Monos (auto) Absolute Eos (auto) Absolute Basos (auto) Absolute Nucleated RBC Nucleated RBC % Sodium Potassium Chloride Carbon Dioxide Anion Gap BUN Creatinine Est GFR ( Amer) Est GFR (Non-Af Amer) BUN/Creatinine Ratio Glucose POC Glucose (mg/dL) 135 H Calcium Iron TIBC % Saturation Unsat Iron Binding Ferritin Total Bilirubin AST ALT Alkaline Phosphatase Total Protein Albumin Globulin Albumin/Globulin Ratio Vitamin B12 Folate Urine Color Sandra Urine Appearance Cloudy Urine pH 5.0 Ur Specific [place] 1.013 Urine Protein 1+(30 mg/dl) H Urine Ketones Trace H Urine Blood 2+ H Urine Nitrate Negative Urine Bilirubin Negative Urine Urobilinogen Negative Ur Leukocyte Esterase Negative Urine WBC (Auto) 3+(>20/hpf) H Urine RBC (Auto) 2+(6-10/hpf) H Ur Squamous Epith Cells Present H Ur Renal Epithelial Cell Present H Urine Bacteria 1+ H Hyaline Casts Present H Ur Random Creatinine 137.06 Ur Random Urea Nitrogn 428 Urine Glucose Negative Vancomycin Trough 07/20/17 07/21/17 07/21/17 20:41 04:59 05:00 WBC 10.8 RBC 2.73 L Hgb 9.2 L Hct 26 L MCV 96 H MCH 34 H MCHC 35 RDW 22 H Plt Count 247 MPV 9 Neut % (Auto) 84.5 H Lymph % (Auto) 7.1 L [place] % (Auto) 7.2 Eos % (Auto) 0.5 Baso % (Auto) 0.7 Absolute Neuts (auto) 9.1 H Absolute Lymphs (auto) 0.8 L Absolute Monos (auto) 0.8 Absolute Eos (auto) 0.1 Absolute Basos (auto) 0.1 Absolute Nucleated RBC 0 Nucleated RBC % 0.3 Sodium 130 L Potassium 4.8 Chloride 98 L Carbon Dioxide 24 Anion Gap 8 BUN 68 H Creatinine 2.53 H Est GFR ( Amer) 32.0 Est GFR (Non-Af Amer) 24.9 BUN/Creatinine Ratio 26.9 H Glucose 56 L POC Glucose (mg/dL) 121 H Calcium 8.4 L Iron 41 L TIBC 255 % Saturation 16 Unsat Iron Binding 214 Ferritin 2312.8 H Total Bilirubin 2.60 H AST 1399 H ALT 1111 H Alkaline Phosphatase 112 H Total Protein 6.3 L Albumin 2.8 L Globulin 3.5 Albumin/Globulin Ratio 0.8 L Vitamin B12 > 1450 H Folate > 20.00 Urine Color Urine Appearance Urine pH Ur Specific [place] Urine Protein Urine Ketones Urine Blood Urine Nitrate Urine Bilirubin Urine Urobilinogen Ur Leukocyte Esterase Urine WBC (Auto) Urine RBC (Auto) Ur Squamous Epith Cells Ur Renal Epithelial Cell Urine Bacteria Hyaline Casts Ur Random Creatinine Ur Random Urea Nitrogn Urine Glucose Vancomycin Trough 07/21/17 07/21/17 07/21/17 07:37 10:01 11:39 WBC RBC Hgb Hct MCV MCH MCHC RDW Plt Count MPV Neut % (Auto) Lymph % (Auto) [place] % (Auto) Eos % (Auto) Baso % (Auto) Absolute Neuts (auto) Absolute Lymphs (auto) Absolute Monos (auto) Absolute Eos (auto) Absolute Basos (auto) Absolute Nucleated RBC Nucleated RBC % Sodium Potassium Chloride Carbon Dioxide Anion Gap BUN Creatinine Est GFR ( Amer) Est GFR (Non-Af Amer) BUN/Creatinine Ratio Glucose POC Glucose (mg/dL) 73 141 H Calcium Iron TIBC % Saturation Unsat Iron Binding Ferritin Total Bilirubin AST ALT Alkaline Phosphatase Total Protein Albumin Globulin Albumin/Globulin Ratio Vitamin B12 Folate Urine Color Urine Appearance Urine pH Ur Specific [place] Urine Protein Urine Ketones Urine Blood Urine Nitrate Urine Bilirubin Urine Urobilinogen Ur Leukocyte Esterase Urine WBC (Auto) Urine RBC (Auto) Ur Squamous Epith Cells Ur Renal Epithelial Cell Urine Bacteria Hyaline Casts Ur Random Creatinine Ur Random Urea Nitrogn Urine Glucose Vancomycin Trough 29.2 Microbiology and Other Data: Microbiology 07/15/17 15:09 Blood Venous Aerobic Blood Culture - Final No Growth Day 5 07/15/17 15:09 Blood Venous Anaerobic Blood Culture - Final No Growth Day 5 07/15/17 15:17 Blood Venous Aerobic Blood Culture - Final No Growth Day 5 07/15/17 21:35 Nasal Nasal Screen MRSA (PCR)(RASHAAD) - Final Mrsa Not Detected 07/15/17 22:20 Stool Stool Occult Blood (RASHAAD) - Final 07/15/17 19:28 Nasal Influenza Types A,B Antigen (RASHAAD) - Final Specimen received for Influenza A/B Molecular testing Assess/Plan/Problems-Billing Assessment: 77 yo M PMH SC, HTN, DMT2, bladder ca on BCG, 60 pack years and recent (2-07/12 ) hospital stay requiring intubation p/w from son's home w/ SOB, lactic acidosis 11.5, respiratory failure requiring NIPPV and decompensated heart failure (EF 25-30%, mod-sev MR, mod , mod-sev TR). RUL opacity ?malignancy. segmental bowel wall thickening. BNP 3684. AMANDA. Colonscopy 1 year prior. On cefepmine, vanc empirically. AMANDA, shock liver worsening. Ferritin 2300 but Iron Sat % not elevated. - Patient Problems (1) Acute combined systolic (congestive) and diastolic (congestive) heart failure Current Visit: Yes Status: Acute Code(s): I50.41 - ACUTE COMBINED SYSTOLIC AND DIASTOLIC (CONGESTIVE) HRT FAIL SNOMED Code(s): 695519450466495 Comment: Valvular disease worse compared to last stay at [place] appreciate cards recs. metoprolol 25mg BID Hold KASSANDRA/ARB in setting of renal failure tosemide 40mg daily with additional afternoon dose + 2.5mg zarolxyn. BNP 3684 ferritin elevated to 2300, but Iron Sat not markedly high maked hemochromatosis less likely. (2) Right upper lobe consolidation Current Visit: Yes Status: Acute Code(s): J18.1 - LOBAR PNEUMONIA, UNSPECIFIED ORGANISM SNOMED Code(s): 72227149 Comment: concern for possible malignancy. Pulm consult on Saturday (After repeat CXR in AM). May need biopsy? (3) Acute kidney failure Current Visit: Yes Status: Acute Comment: worse today. FeUrea 12%, prerenal. suspect congestive CHF, increasing diuresis (4) DVT prophylaxis Current Visit: Yes Status: Acute Code(s): EUM5338 - SNOMED Code(s): 349714631 Comment: HSQ (5) Diabetes Current Visit: Yes Status: Acute Code(s): E11.9 - TYPE 2 DIABETES MELLITUS WITHOUT COMPLICATIONS SNOMED Code(s): 36186188 Comment: continue to hold lantus add a1c, still pending. SSI lispro. qachs POCT (6) Lactic acidosis Current Visit: Yes Status: Acute Code(s): E87.2 - ACIDOSIS SNOMED Code(s) : 04203503 Comment: Unclear precipitant Was on metformin however only 1000mg for several days Possible decompensated HF in setting of dehydration and infection (PNA) Resolved (7) Pneumonia Current Visit: Yes Status: Acute Code(s): J18.9 - PNEUMONIA, UNSPECIFIED ORGANISM SNOMED Code(s): 882018284 Comment: PNA vs possible malignancy on CT in setting of leukocytosis improving on ABx continues on cefepime/Vanco and improving clinically Was discharged on cefpodoxime from last hospital stay. Favor full course of abx given presenting critical illness chest PT and flutter valve (8) Transaminitis Current Visit: Yes Status: Acute Code(s): R74.0 - NONSPEC ELEV OF LEVELS OF TRANSAMNS & LACTIC ACID DEHYDRGNSE SNOMED Code(s): 702040863 Comment: suspect congestive hepatopathy. ddx hemochromatosis and HLH given elevated ferritin worsened on recheck. (9) Valvular disease Current Visit: Yes Status: Acute Comment: MR, , AI worsening severe systolic dysfunction (10) Anemia Current Visit: Yes Status: Acute Code(s): D64.9 - ANEMIA, UNSPECIFIED SNOMED Code(s): 010203259 Comment: macrocytic, high RDW b12,folate wnl. ferritin 2300. iron 41 low, iron sat 16% low normal Status and Disposition: medicine inpatient
[2017-07-21] MEDS ORDERED: Metolazone TAB* 5 MG PO ONE (16:00)
[2017-07-21] MEDS ORDERED: Torsemide TAB* 20 MG PO ONE (16:30)
[2017-07-22] MEDS: Heparin VIAL(*) 5000 UNITS/ML VIAL (FIVE THOUSAND) SUBCUT SCH ×3 (05:34→22:11)
[2017-07-22] MEDS: Cefepime(*) 1 GM in D5W 50 ML BAG* 50 ML IVPB SCH ×2 (05:34→17:58)
[2017-07-22] MEDS ORDERED: Vancomycin Random Level* NOTE FOLLOW UP ONE (06:00)
--- NOTE | 2017-07-22 07:54 | PN ---
Subjective Date of Service: 07/22/17 Interval History: got some sleep. less productive cough. no other complaints, nontoxic appearing initially on 3L weight 78.2-> 77.1kg net negative 300cc labs deferred to 8am to allow sleep, [employer] up, transaminitis up, metabolic acidosis to 14 from 24, anion gap 17. Lactic Acid obtained and elevated to 4.5 Pt transferred to ICU with suspcioun for progressive cardiogenic shock with need for central line, inotropic support and diuretic gtt. Dr. Logan consulted and assumed care. While getting ready for transfer patient oxygen requirements increased to 5L oxymask. Repeat chest xray with worsening right basilar effusion + infiltrate. repeat ECHO ordered, largely unchanged. Objective Active Medications: Aspirin (Aspirin Low Dose Tab*) 81 mg PO DAILY [facility] Last Admin: 07/21/17 08:52 Dose: 81 mg Atorvastatin Calcium (Lipitor*) 20 mg PO DAILY [facility] Last Admin: 07/21/17 08:52 Dose: 20 mg Dextrose (D50w Syringe 50 Ml*) 25 gm IV PUSH ONCE PRN PRN Reason: FS < 60 Dextrose (D50w Syringe 50 Ml*) 12.5 gm IV PUSH .FOR FS < 60 - SS PRN PRN Reason: FS < 60 Folic Acid (Folvite Tab*) 1 mg PO DAILY [facility] Last Admin: 07/21/17 08:52 Dose: 1 mg Heparin Sodium (Porcine) (Heparin Vial(*)) 5,000 units SUBCUT Q8HR [facility] Last Admin: 07/22/17 05:34 Dose: 5,000 units Cefepime HCl 1 gm/ Dextrose 50 mls @ 100 mls/hr IVPB Q12H [facility] Last Admin: 07/22/17 05:34 Dose: 100 mls/hr Insulin Human Lispro (Humalog*) 0 units SUBCUT AC [facility] PRN Reason: Protocol Last Admin: 07/21/17 17:28 Dose: 1 units Insulin Human Lispro (Humalog*) 0 units SUBCUT AC [facility] PRN Reason: Protocol Last Admin: 07/21/17 17:28 Dose: 2 units Metoprolol Tartrate (Lopressor Tab*) 25 mg PO BID [facility] Last Admin: 07/21/17 20:43 Dose: 25 mg Omeprazole (Prilosec Cap*) 20 mg PO DAILY [facility] Last Admin: 02/18/18 08:52 Dose: 20 mg Pharmacy Consult (Vancomycin Per Pharmacy*) 1 note FOLLOW UP . PRN PRN Reason: PER PROTOCOL Torsemide (Demadex*) 40 mg PO DAILY [facility] Last Admin: 07/21/17 08:53 Dose: 40 mg Vital Signs - 8 hr 07/22/17 07/22/17 07/22/17 00:11 00:16 05:41 Temperature 97.2 F 97.5 F Pulse Rate 86 93 Respiratory 30 30 Rate Blood Pressure 98/53 108/55 (mmHg) O2 Sat by Pulse 84 92 Oximetry 07/22/17 05:44 Temperature Pulse Rate Respiratory Rate Blood Pressure (mmHg) O2 Sat by Pulse 95 Oximetry Oxygen Devices in Use Now: Nasal Cannula Appearance: NAD Eyes: No Scleral Icterus, PERRLA Ears/Nose/Mouth/Throat: NL Teeth, Lips, Gums Neck: NL Appearance and Movements; NL JVP Respiratory: Symmetrical Chest Expansion and Respiratory Effort, - - shallow breaths, rhonchi worse on right base and midlung. Cardiovascular: NL Sounds; No Murmurs; No JVD, RRR Extremities: - - 2+ edema in lower extremities Skin: No Rash or Ulcers Neurological: Alert and Oriented x 3, NL Sensation, NL Muscle Strength and Tone Nutrition: Taking PO's Result Diagrams: 07/22/17 09:04 07/22/17 09:04 Additional Lab and Data: Laboratory Results - last 24 hr 07/20/17 07/20/17 07/20/17 16:40 17:30 17:30 WBC RBC Hgb Hct MCV MCH MCHC RDW Plt Count MPV Neut % (Auto) Lymph % (Auto) Kaufman % (Auto) Eos % (Auto) Baso % (Auto) Absolute Neuts (auto) Absolute Lymphs (auto) Absolute Monos (auto) Absolute Eos (auto) Absolute Basos (auto) Absolute Nucleated RBC Nucleated RBC % Sodium Potassium Chloride Carbon Dioxide Anion Gap BUN Creatinine Est GFR ( Amer) Est GFR (Non-Af Amer) BUN/Creatinine Ratio Glucose POC Glucose (mg/dL) 135 H Calcium Iron TIBC % Saturation Unsat Iron Binding Ferritin Total Bilirubin AST ALT Alkaline Phosphatase Total Protein Albumin Globulin Albumin/Globulin Ratio Vitamin B12 Folate Urine Color Sandra Urine Appearance Cloudy Urine pH 5.0 Ur Specific [place] 1.013 Urine Protein 1+(30 mg/dl) H Urine Ketones Trace H Urine Blood 2+ H Urine Nitrate Negative Urine Bilirubin Negative Urine Urobilinogen Negative Ur Leukocyte Esterase Negative Urine WBC (Auto) 3+(>20/hpf) H Urine RBC (Auto) 2+(6-10/hpf) H Ur Squamous Epith Cells Present H Ur Renal Epithelial Cell Present H Urine Bacteria 1+ H Hyaline Casts Present H Ur Random Creatinine 137.06 Ur Random Urea Nitrogn 428 Urine Glucose Negative Vancomycin Trough 07/20/17 07/21/17 07/21/17 20:41 04:59 05:00 WBC 10.8 RBC 2.73 L Hgb 9.2 L Hct 26 L MCV 96 H MCH 34 H MCHC 35 RDW 22 H Plt Count 247 MPV 9 Neut % (Auto) 84.5 H Lymph % (Auto) 7.1 L Kaufman % (Auto) 7.2 Eos % (Auto) 0.5 Baso % (Auto) 0.7 Absolute Neuts (auto) 9.1 H Absolute Lymphs (auto) 0.8 L Absolute Monos (auto) 0.8 Absolute Eos (auto) 0.1 Absolute Basos (auto) 0.1 Absolute Nucleated RBC 0 Nucleated RBC % 0.3 Sodium 130 L Potassium 4.8 Chloride 98 L Carbon Dioxide 24 Anion Gap 8 BUN 68 H Creatinine 2.53 H Est GFR ( Amer) 32.0 Est GFR (Non-Af Amer) 24.9 BUN/Creatinine Ratio 26.9 H Glucose 56 L POC Glucose (mg/dL) 121 H Calcium 8.4 L Iron 41 L TIBC 255 % Saturation 16 Unsat Iron Binding 214 Ferritin 2312.8 H Total Bilirubin 2.60 H AST 1399 H ALT 1111 H Alkaline Phosphatase 112 H Total Protein 6.3 L Albumin 2.8 L Globulin 3.5 Albumin/Globulin Ratio 0.8 L Vitamin B12 > 1450 H Folate > 20.00 Urine Color Urine Appearance Urine pH Ur Specific [place] Urine Protein Urine Ketones Urine Blood Urine Nitrate Urine Bilirubin Urine Urobilinogen Ur Leukocyte Esterase Urine WBC (Auto) Urine RBC (Auto) Ur Squamous Epith Cells Ur Renal Epithelial Cell Urine Bacteria Hyaline Casts Ur Random Creatinine Ur Random Urea Nitrogn Urine Glucose Vancomycin Trough 07/21/17 07/21/17 07/21/17 07:37 10:01 11:39 WBC RBC Hgb Hct MCV MCH MCHC RDW Plt Count MPV Neut % (Auto) Lymph % (Auto) Kaufman % (Auto) Eos % (Auto) Baso % (Auto) Absolute Neuts (auto) Absolute Lymphs (auto) Absolute Monos (auto) Absolute Eos (auto) Absolute Basos (auto) Absolute Nucleated RBC Nucleated RBC % Sodium Potassium Chloride Carbon Dioxide Anion Gap BUN Creatinine Est GFR ( Amer) Est GFR (Non-Af Amer) BUN/Creatinine Ratio Glucose POC Glucose (mg/dL) 73 141 H Calcium Iron TIBC % Saturation Unsat Iron Binding Ferritin Total Bilirubin AST ALT Alkaline Phosphatase Total Protein Albumin Globulin Albumin/Globulin Ratio Vitamin B12 Folate Urine Color Urine Appearance Urine pH Ur Specific [place] Urine Protein Urine Ketones Urine Blood Urine Nitrate Urine Bilirubin Urine Urobilinogen Ur Leukocyte Esterase Urine WBC (Auto) Urine RBC (Auto) Ur Squamous Epith Cells Ur Renal Epithelial Cell Urine Bacteria Hyaline Casts Ur Random Creatinine Ur Random Urea Nitrogn Urine Glucose Vancomycin Trough 29.2 Microbiology and Other Data: Microbiology 07/15/17 15:09 Blood Venous Aerobic Blood Culture - Final No Growth Day 5 07/15/17 15:09 Blood Venous Anaerobic Blood Culture - Final No Growth Day 5 07/15/17 15:17 Blood Venous Aerobic Blood Culture - Final No Growth Day 5 07/15/17 21:35 Nasal Nasal Screen MRSA (PCR)(RASHAAD) - Final Mrsa Not Detected 07/15/17 22:20 Stool Stool Occult Blood (RASHAAD) - Final 07/15/17 19:28 Nasal Influenza Types A,B Antigen (RASHAAD) - Final Specimen received for Influenza A/B Molecular testing Assess/Plan/Problems-Billing Assessment: 77 yo M PMH RI, HTN, DMT2, bladder ca on BCG, 60 pack years and recent (07/06-07/12 ) hospital stay requiring intubation p/w from son's home w/ SOB, lactic acidosis 11.5, respiratory failure requiring NIPPV and decompensated heart failure (EF 25-30%, mod-sev MR, mod , mod-sev TR). RUL opacity ?malignancy. segmental bowel wall thickening. BNP 3684. AMANDA. Colonscopy 1 year prior. On cefepmine, vanc empirically. AMANDA, shock liver worsening. Ferritin 2300 but Iron Sat % not elevated. 07/22 worsening AMANDA, transaminitis, acidosis 2/2 lactic acidosis, hypoxia. Transferreed to ICU for inotropes + diuretic gtt. - Patient Problems (1) Acute combined systolic (congestive) and diastolic (congestive) heart failure Current Visit: Yes Status: Acute Code(s): I50.41 - ACUTE COMBINED SYSTOLIC AND DIASTOLIC (CONGESTIVE) HRT FAIL SNOMED Code(s): 300609334020208 Comment: worsening, suspect cardiogenic shock given valvular dz. transferred to ICU for dobutamine and diuretic gtt. hold metoprolol 25mg BID in setting of concern Hold KASSANDRA/ARB in setting of renal failure bumex gtt (not available) -> lasix gtt and intermittent boluses BNP 3684-> 1844 ferritin elevated to 2300, but Iron Sat not markedly high maked hemochromatosis less likely. (2) Right upper lobe consolidation Current Visit: Yes Status: Acute Code(s): J18.1 - LOBAR PNEUMONIA, UNSPECIFIED ORGANISM SNOMED Code(s): 13589853 Comment: worsened on repeat CXR. concern for possible malignancy? consider diagnostic thoracentesis of right pleural effusion. (3) Valvular disease Current Visit: Yes Status: Acute Comment: moderate MVR, moderate , EF 25-30% may need transfer for cardiothoracic surgery vs endoscopic approach. (4) Acute kidney failure Current Visit: Yes Status: Acute Comment: worse today. FeUrea 12%, prerenal. suspect congestive CHF progressive to shock, dobutamine + lasix gtt. (5) DVT prophylaxis Current Visit: Yes Status: Acute Code(s): NKJ9344 - SNOMED Code(s): 770425077 Comment: HSQ (6) Diabetes Current Visit: Yes Status: Acute Code(s): E11.9 - TYPE 2 DIABETES MELLITUS WITHOUT COMPLICATIONS SNOMED Code(s): 87283287 Comment: continue to hold lantus a1c 7.8 SSI lispro. qachs POCT (7) Lactic acidosis Current Visit: Yes Status: Acute Code(s): E87.2 - ACIDOSIS SNOMED Code(s) : 45181842 Comment: worsened again. suspect cardiogenic shock. Was on metformin however only 1000mg for several days Possible decompensated HF in setting of dehydration and infection (PNA) Resolved (8) Pneumonia Current Visit: Yes Status: Acute Code(s): J18.9 - PNEUMONIA, UNSPECIFIED ORGANISM SNOMED Code(s): 345163150 Comment: continues cefepime/Vanco repeat cultures. Was discharged on cefpodoxime from last hospital stay. (9) Transaminitis Current Visit: Yes Status: Acute Code(s): R74.0 - NONSPEC ELEV OF LEVELS OF TRANSAMNS & LACTIC ACID DEHYDRGNSE SNOMED Code(s): 747922327 Comment: suspect congestive hepatopathy. ddx hemochromatosis and HLH given elevated ferritin worsened on recheck. (10) Anemia Current Visit: Yes Status: Acute Code(s): D64.9 - ANEMIA, UNSPECIFIED SNOMED Code(s): 058687214 Comment: macrocytic, high RDW b12,folate wnl. ferritin 2300. iron 41 low, iron sat 16% low normal Status and Disposition: medicine inpatient-> transferred to ICU.
[2017-07-22] MEDS: Insulin LISPRO* 1 UNITS UNIT SUBCUT SCH ×6 (09:18→17:57)
[2017-07-22] MEDS: Metoprolol Tartrate TAB* 25 MG PO SCH (09:22)
[2017-07-22] MEDS: Atorvastatin* 20 MG TAB PO SCH (09:30)
[2017-07-22] MEDS: Aspirin Low Dose CHEW TAB* 81 MG PO SCH (09:30)
[2017-07-22] MEDS: Folic Acid TAB* 1 MG PO SCH (09:30)
[2017-07-22] MEDS: Omeprazole CAP* 20 MG PO SCH (09:30)
[2017-07-22 09:37] LABS: ABS Basophils 0.1 10^3/ul (0-0.2); ABS Eosinophils 0 10^3/ul (0-0.6); ABS Lymphocytes 0.6 10^3/ul (1.0-4.8); ABS Monocytes 1.5 10^3/ul (0-0.8); ABS Neutrophils 10.2 10^3/ul (1.5-7.7); ABS Nucleated RBC 0 10^3/ul; Eosinophil % 0.1 % (0-6); Hematocrit 31 % (42-52); Hemoglobin 9.6 g/dl (14.0-18.0); Lymphocyte % 4.7 % (25-47); Mean Corpuscular HGB Conc 31 g/dl (31-36); Mean Corpuscular Hemoglobin 33 pg (27-31); Mean Corpuscular Volume 104 fL (80-94); Mean Platelet Volume 9 um3 (7.4-10.4); Nucleated Red Blood Cells % 0.2; Platelet Count 254 10^3/ul (150-450); Red Blood Count 2.96 10^6/ul (4.0-5.4); Red Cell Distribution Width 24 % (10.5-15); White Blood Count 12.3 10^3/ul (3.5-10.8)
[2017-07-22] MEDS: Torsemide TAB* 20 MG PO SCH (11:49)
[2017-07-22] MEDS: Sodium Bicarbonate (ANTACID)* 650 MG TAB PO SCH ×3 (12:12→22:10)
--- NOTE | 2017-07-22 13:34 | RAD ---
INDICATION: Right upper lobe lung mass COMPARISON: Measures and comparison chest x-rays dated July 19, 2017 TECHNIQUE: PA and lateral views of the chest were obtained. FINDINGS: The heart and mediastinum are normal in size and contour. The density obscuring the right upper lateral lung is more confluent and dense relative to the previous chest x-ray. There is density obscuring the right hilum where there bronchograms. Density also obscures the right lower lung and right hemidiaphragm. Visualized bones are normal for the patient's age. There is no radiographic evidence of free air beneath the diaphragm IMPRESSION: SINCE THE MOST RECENT CHEST X-RAY DATED JULY 19, 2017 THERE IS WORSENING DENSITY OBSCURING THE RIGHT UPPER LATERAL LUNG WELL THE RIGHT HILUM WITH INTERVAL APPEARANCE OF A MODERATE RIGHT-SIDED PLEURAL EFFUSION.
[2017-07-22] MEDS ORDERED: NS 0.9% IV SCH ×2 (14:00→14:25)
[2017-07-22] MEDS ORDERED: BUMETANIDE IV SCH ×2 (14:00→14:25)
[2017-07-22] MEDS ORDERED: DOBUTamine 2000 MCG/ML IVPREMX 500 MG/250 ML BAG IV SCH (14:00)
--- NOTE | 2017-07-22 15:09 | CONSULT ---
Consult Consult: Consultation Note Critical Care Requesting Physician: Dr Seb Lopez Reason for consult: multiorgan dysfunction Limitations in history/physical: none Date of consult: 07/22/2017 HPI: 77y M pmhx of HTN, DM, moderate-severe MR, mod-severe , Mod-severe LV systolic dysfunction/Ischemic CMP, CKD; recently admitted to ICU in outside hospital with pneumonia, discharged. Admitted here for worsening shortness of breath again. Admitted with elevated wbc, AMANDA on CKD, elevated lfts, signs of possible volume overload, with BNP >3000, LA 11, consistent with likely cardiogenic shock +/- septic shock. Found to have RUL density/infiltrate on Chest CT. CXR demonstrated possible infiltrate as well as a small-mod Right effusion. He was diuresed while admitted, treated for pneumonia with IV abx cefepime and vancomycin, with no growth on cultures. He has remained afebrile, wbc has been downtrending. LFTs and renal function were improving up until 2 days back when both started to rise again. He has been making urine but not large amounts. Patient upgraded to ICU now for increasing LFTs, declining renal function, elevated Lactic acid levels. He is awake/alert, mild tachypnea noted, on oximask now, sats 95%, rr 25 without acc muscle use. Cough+, sputum+. No abd pain/n/v/chest pain. Mild sob. States legs are swollen. Weights appear to be going up in the past few days. BP have been 90-110s, HR 90s. tmax 98. Currently LE demonstrate edema+, with some mild mottling in knees noted. ROS: negative except for pertinent positives mentioned above. PMHx: HTN, DM, Mod-severe MR, Mod-Severe , Severe LV systolic dysfunction, CKD , bladder cancer PSHx: partial nephrectomy, bladder tumour removal Family History: DM and HTN Social History: Alcohol-none, Smoking-former smoker, Drug use-none; Job-retired Allergies: Allergies Allergy/AdvReac Type Severity Reaction Status Date / Time No Known Allergies Allergy Verified 07/15/17 16:03 Home Medications: Aspirin Low Dose CHEW TAB* [Aspirin Low Dose TAB*] 81 mg PO DAILY 07/15/17 [ History Confirmed 07/15/17] Atorvastatin* [Lipitor*] 20 mg PO DAILY 07/15/17 [History Confirmed 07/15/17] Cefpodoxime (NF) [Vantin 200 MG TAB (NF)] 200 mg PO BID 07/15/17 [History Confirmed 07/15/17] Folic Acid TAB* [Folvite TAB*] 1 mg PO DAILY 07/15/17 [History Confirmed ] Glipizide/Metformin HCl [Glipizide/Metformin HCl 2.5-250 mg] 1 tab PO BID [History Confirmed 07/15/17] Metoprolol Succinate XL TAB* [Toprol XL TAB*] 50 mg PO DAILY 07/15/17 [History Confirmed 07/15/17] Nitroglycerin TAB 0.4 MG* 0.4 mg SL Q5M PRN 07/15/17 [History Confirmed 07/15/17 ] Pantoprazole TAB (NF) [Protonix TAB (NF)] 40 mg PO DAILY 07/15/17 [History Confirmed 07/15/17] Sitagliptin (NF) [Januvia (NF)] 50 mg PO DAILY 07/15/17 [History Confirmed 07/15] Torsemide TAB* [Demadex*] 10 mg PO DAILY 07/15/17 [History Confirmed 07/15/17] Tele: NSR Vitals: Vital Signs Temp 99.5 F 07/22/17 15:04 Pulse 91 07/22/17 15:04 Resp 20 07/22/17 15:04 BP 110/60 07/22/17 15:04 Pulse Ox 97 07/22/17 15:04 Intake & Output 07/21/17 07/22/17 07/22/17 18:59 06:59 18:59 Intake Total 545 55 450 Output Total 450 450 100 Balance 95 -395 350 Weight 170 lb Intake: IV Fluids 125 ABX - VANCOMYCIN 125 IVPB 55 ABX - CEFEPIME 55 Oral 420 0 450 Output: Urine 450 450 100 O2/Vent: oximask Infusions: started on dobutamine 2.5 Current Medications: Aspirin (Aspirin Low Dose Tab*) 81 mg PO DAILY [facility] Last Admin: 07/22/17 09:30 Dose: 81 mg Atorvastatin Calcium (Lipitor*) 20 mg PO DAILY [facility] Last Admin: 07/22/17 09:30 Dose: 20 mg Dextrose (D50w Syringe 50 Ml*) 25 gm IV PUSH ONCE PRN PRN Reason: FS < 60 Dextrose (D50w Syringe 50 Ml*) 12.5 gm IV PUSH .FOR FS < 60 - SS PRN PRN Reason: FS < 60 Folic Acid (Folvite Tab*) 1 mg PO DAILY [facility] Last Admin: 07/22/17 09:30 Dose: 1 mg Heparin Sodium (Porcine) (Heparin Vial(*)) 5,000 units SUBCUT Q8HR [facility] Last Admin: 07/22/17 05:34 Dose: 5,000 units Cefepime HCl 1 gm/ Dextrose 50 mls @ 100 mls/hr IVPB Q12H [facility] Last Admin: 07/22/17 05:34 Dose: 100 mls/hr Dobutamine HCl/Dextrose (Dobutamine 2000 Mcg/Ml Ivpremx*) 500 mg in 250 mls @ 5.783 mls/hr IV .Initial Rate [facility]; 2.5 MCG/KG/MIN PRN Reason: Protocol Last Admin: 07/22/17 14:29 Dose: 5.783 mls/hr Insulin Human Lispro (Humalog*) 0 units SUBCUT AC [facility] PRN Reason: Protocol Last Admin: 07/22/17 12:50 Dose: Not Given Insulin Human Lispro (Humalog*) 0 units SUBCUT AC [facility] PRN Reason: Protocol Last Admin: 07/22/17 12:55 Dose: 3 units Omeprazole (Prilosec Cap*) 20 mg PO DAILY [facility] Last Admin: 07/22/17 09:30 Dose: 20 mg Pharmacy Consult (Vancomycin Per Pharmacy*) 1 note FOLLOW UP . PRN PRN Reason: PER PROTOCOL Sodium Bicarbonate (Sodium Bicarbonate (Antacid)*) 650 mg PO Q8HR [facility] Last Admin: 07/22/17 12:12 Dose: 650 mg Physical Exam: General: awake, alert, mild tachypnea, no diaphoresis Head: normocephalic, atraumatic HEENT: no pallor, no icterus, moist mucous membranes Neck: soft, supple, + jvd, no stridor CVS: normal rate, regular, no murmur Resp: bilateral air entry, no rhales, no wheeze, no rhonchi, no acc muscle use Abdomen: soft, nontender, nondistended, bowel sounds present Ext: pulses+, warm, 2+ edema b/l LE Skin: intact, no breakdown, no dryness Neuro: awake, alert, orientedx3, moving all extremities, no gross focal deficit Labs: Laboratory Results - last 24 hr 07/21/17 07/21/17 07/21/17 05:00 16:00 19:51 WBC RBC Hgb Hct MCV MCH MCHC RDW Plt Count MPV Neut % (Auto) Lymph % (Auto) Riley % (Auto) Eos % (Auto) Baso % (Auto) Absolute Neuts (auto) Absolute Lymphs (auto) Absolute Monos (auto) Absolute Eos (auto) Absolute Basos (auto) Absolute Nucleated RBC Nucleated RBC % Sodium Potassium Chloride Carbon Dioxide Anion Gap BUN Creatinine Est GFR ( Amer) Est GFR (Non-Af Amer) BUN/Creatinine Ratio Glucose POC Glucose (mg/dL) 171 H 162 H Hemoglobin A1c 7.8 H Lactic Acid Calcium Total Bilirubin AST ALT Alkaline Phosphatase B-Natriuretic Peptide Total Protein Albumin Globulin Albumin/Globulin Ratio Random Vancomycin 07/22/17 07/22/17 07/22/17 07:38 09:04 09:04 WBC 12.3 H RBC 2.96 L Hgb 9.6 L Hct 31 L MCV 104 H MCH 33 H MCHC 31 RDW 24 H Plt Count 254 MPV 9 Neut % (Auto) 82.9 Lymph % (Auto) 4.7 L Riley % (Auto) 11.9 H Eos % (Auto) 0.1 Baso % (Auto) 0.4 Absolute Neuts (auto) 10.2 H Absolute Lymphs (auto) 0.6 L Absolute Monos (auto) 1.5 H Absolute Eos (auto) 0 Absolute Basos (auto) 0.1 Absolute Nucleated RBC 0 Nucleated RBC % 0.2 Sodium 127 L Potassium 5.5 H Chloride 96 L Carbon Dioxide 14 L* Anion Gap 17 H BUN 76 H Creatinine 2.82 H Est GFR ( Amer) 28.2 Est GFR (Non-Af Amer) 22.0 BUN/Creatinine Ratio 27.0 H Glucose 71 POC Glucose (mg/dL) 71 Hemoglobin A1c Lactic Acid Calcium 8.5 L Total Bilirubin 2.50 H AST 1519 H ALT 1240 H Alkaline Phosphatase 134 H B-Natriuretic Peptide Total Protein 7.0 Albumin 3.0 L Globulin 4.0 Albumin/Globulin Ratio 0.8 L Random Vancomycin 28.0 07/22/17 07/22/17 07/22/17 09:04 11:10 11:55 WBC RBC Hgb Hct MCV MCH MCHC RDW Plt Count MPV Neut % (Auto) Lymph % (Auto) Riley % (Auto) Eos % (Auto) Baso % (Auto) Absolute Neuts (auto) Absolute Lymphs (auto) Absolute Monos (auto) Absolute Eos (auto) Absolute Basos (auto) Absolute Nucleated RBC Nucleated RBC % Sodium Potassium Chloride Carbon Dioxide Anion Gap BUN Creatinine Est GFR ( Amer) Est GFR (Non-Af Amer) BUN/Creatinine Ratio Glucose POC Glucose (mg/dL) 87 Hemoglobin A1c Lactic Acid 4.5 H* Calcium Total Bilirubin AST ALT Alkaline Phosphatase B-Natriuretic Peptide 1844 H Total Protein Albumin Globulin Albumin/Globulin Ratio Random Vancomycin Imaging: cxr 07/22 - increased right effusion, increased atelectasis of right base, right upper lobe infiltrate+ Assessment: 77y M w/pmhx HTN, DM, moderate-severe MR, mod-severe , Mod-severe LV systolic dysfunction/Ischemic CMP, CKD; recently admitted to ICU in outside hospital with pneumonia, discharged. Admitted here for worsening shortness of breath again. Admitted with elevated wbc, AMANDA on CKD, elevated lfts, signs of possible volume overload, with BNP >3000, LA 11, consistent with likely cardiogenic shock +/- septic shock. Improving on floor but upgraded to ICU for increasing LFTs, Cr and LA. CXR with some increased RLL density again, Edema in LE+. -Shock, unclear if septic vs cardiogenic -AMANDA -Shock liver -Acute on chronic decompensated LV systolic heart failure -r/o recurrent pneumonia, HCAP -acute hypoxic respiratory failure -Moderate-severe Mitral regurgitation -Mod-severe -right upper lobe infiltrate -CAD -Ischemic CMP Plan: Neuro- stable, alert. delirium prec. CVS- BP 110-120s. not tachy. edema2+ b/l, JVD+. severe MR and mod-severe in settings of mod-sevre LV systolic dysfunction. unknown coronary status but anterior qwaves and history of VA, anterior wall hypokinesis, severe LV systolic dysfunction. given clinical and lab findings, suspicion is higher for cardiogenic shock. start dobutamine. start lasix infusion. will attempt to optimize hemodynamics. This will likely need more urgent evaluation once more stable for surgical vs percutaneous intervention of mitral and aortic valves as well as coronary artery evaluation. discussed with cardiology that surgical eval will be needed. trend LA level. Resp- on oximask. tachypneic. CXR with infitlrate +/- congestion. will start lasix infusion. still on cefepime/vanco, no growth to date. send sputum cx if any. no wheezing noted. Will check Right lung ultrasound to eval size of effusion. ID- afebrile. last tmax 99.5. wbc last 12. day 8 of vanco/cefepime. send blood cx and sputum cultures as well as urine. GI- cardiac diet. shock liver, likely from hepatic congestion vs poor forward flow. Renal- AMANDA on CKD. Cr elevated. volume overload+, LE edema+. check cvp. start lasix 5mg/hour. inotrope for improving output. Heme- anemia, hg stable. plt okay. not on AC. check inr. Endo- fingersticks as needed. Musculsk- pressure ulcer proph Wounds- none Nutrition- cardiac diet DVT prophylaxis: scds, heparin sq GI prophylaxis: - Central Line: right ij 07/22 Arterial Line: - Isabel Cathetor: - Disposition: ICU Code Status: full code Total Critical Care time is 60 minutes, excluding procedures/teaching Dao Logan MD Accountant Budget (Electronically Signed)
[2017-07-22] MEDS ORDERED: Meropenem 500MG PREMIX(*) 500 MG/50 ML BAG IV SCH (16:00)
[2017-07-22] MEDS ORDERED: Bumetanide IV* 10 MG in PREMIX* 0 ML IV SCH (16:00)
--- NOTE | 2017-07-22 16:18 | ECHO ---
Amended Report Patient: RAE MACHADO [facility] Rec#: [id number] : 1940 Date: 07/22/2017 Age: 77y Height: 175 cm / 68.9 in Weight: 77 kg / 169.7 lbs Sex: M BSA: 1.92 Room#: ICU7 Admit Date#: 07/15/2017 Type: Inpatient Referring: Seb Lopez Reading: Phillip Hamilton MD CC: Mike Holly MD Transthoracic Echocardiogram Indication: CHF BP: 110/60 HR: 90 Rhythm: NSR Findings History: CAD,LA 1994,CHF,DM,HTN,HLD,former smoker,recent pneumonia. Technical Comments: The study quality is fair. Left Ventricle: The left ventricular chamber size is normal. Septal wall hypertrophy is observed. There is global hypokinesis of the left ventricle with minor regional variation. There is severely decreased left ventricular systolic function. The estimated ejection fraction is 25-30%. Abnormal left ventricular diastolic function is observed. Left Atrium: The left atrium is moderately dilated. Right Ventricle: The right ventricular cavity size is normal. The right ventricular global systolic function is mildly reduced. Right Atrium: The right atrial cavity size is normal. Aortic Valve: The aortic valve is trileaflet. The aortic valve leaflets are moderately thickened. Systolic excursion of the aortic valve cusps is reduced. There is moderate aortic regurgitation. There is moderate aortic stenosis. The highest aortic valve velocity was obtained with the standard probe from the A5C view. Mitral Valve: The mitral valve leaflets are mildly thickened. There is moderate mitral regurgitation. There is no evidence of mitral stenosis. Tricuspid Valve: The tricuspid valve leaflets are normal. There is moderate to severe tricuspid regurgitation. The tricuspid regurgitant jet is extending to dome (back wall of RA). There is evidence of severe pulmonary hypertension. There is no tricuspid stenosis. Pulmonic Valve: The pulmonic valve appears normal. There is a trace pulmonic regurgitation. There is no pulmonic stenosis. Pericardium: The pericardium appears normal. Aorta: The ascending aorta is not well visualized. The aortic arch is not well visualized. There is no dilation of the aortic root. Pulmonary Artery: The main pulmonary artery appears normal. Venous: The inferior vena cava is dilated. There is no change in the dimension of the inferior vena cava with respiration consistent with markedly increased right atrial pressure. Summary: There are no significant changes when compared to the previous study done on 07/16/17 Conclusions There is global hypokinesis of the left ventricle with minor regional variation. There is severely decreased left ventricular systolic function. The estimated ejection fraction is 25-30%. The right ventricular global systolic function is mildly reduced. Systolic excursion of the aortic valve cusps is reduced. There is moderate aortic regurgitation. There is moderate aortic stenosis. There is moderate mitral regurgitation. There is moderate to severe tricuspid regurgitation. There is evidence of severe pulmonary hypertension. The pericardium appears normal. Measurements Name Value Normal Range RVIDd (AP) 2D 3.2 cm (0.9 - 2.6) RVDdMajor (2D) 3.8 cm (2.2 - 4.4) RAd ISD 4CH 4.6 cm (3.4 - 4.9) RA (A4C)W 4.6 cm (2.9 - 4.6) IVSd (2D) 1.1 cm (0.6 - 1) LVPWd (2D) 1 cm (0.6 - 1) LVIDd (2D) 5.4 cm (3.6 - 5.4) LVIDs (2D) 4.7 cm - LV FS (2D) 13 % (25 - 45) Aortic Annulus 1.8 cm (1.4 - 2.6) Ao root diameter (2D) 2.9 cm (2.1 - 3.5) LA dimension (AP) 2D 4.6 cm (2.3 - 3.8) LAd ISD 4CH 5.6 cm (2.9 - 5.3) LA ISD 4CH W 4.6 cm (2.5 - 4.5) Name Value Normal Range LA ESV SP 4CH (A/L) 7 ml - LA ESV SP 2CH (A/L) 45 ml - LA ESV BP (A/L) index 31.06 ml/m2 - LA ESV SP 4CH (MOD) 66 ml - LA ESV SP 2CH (MOD) 44 ml - Name Value Normal Range MV E-wave Vmax 1.2 m/sec - MV deceleration time 166 msec - MV A-wave Vmax 1 m/sec - MV E:A ratio 1.26 ratio - LV septal e' Vmax 0.06 m/sec - LV lateral e' Vmax 0.06 m/sec - LV E:e' septal ratio 20 ratio - LV E:e' lateral ratio 20 ratio - Name Value Normal Range AV Vmax 2.1 m/sec - AV VTI 39.5 cm - AV peak gradient 17.24 mmHg - AV mean gradient 7.1 mmHg - LVOT diameter 2 cm - LVOT Vmax 0.8 m/sec - LVOT VTI 12.1 cm - LVOT peak gradient 2.33 mmHg - LVOT mean gradient 0.89 mmHg - MAXWELL (continuity Vmax) 1.2 cm2 - MAXWELL (continuity VTI) 1 cm2 - AR PHT 221 msec - AR peak gradient 50.73 mmHg - Name Value Normal Range MR Vmax 4.9 m/sec - MR VTI 126.6 cm - Name Value Normal Range TR Vmax 4.3 m/sec - TR peak gradient 72 mmHg - RAP 15 mmHg - RVSP 87 mmHg - IVC diameter 2.7 cm - Name Value Normal Range PV Vmax 0.8 m/sec - PV peak gradient 2.45 mmHg -
--- NOTE | 2017-07-22 16:20 | PN ---
Progress Note - Progress Note Date of Service: 07/22/17 Note: Central Line Procedure Note Indication: poor vascular access, cardiogenic shock Consent was infomred from patient and son , placed in bedside chart. Risks of procedure were explained if possible, all risks of pain/discomfort, bleeding, infection, PTX, Hemotx, need for chest tube, air/wire embolism, vessel injury, , and failed procedure disclosed and understanding verbalized - Prior labs/history was reviewed prior to procedure - Full sterile precautions with chlorhexidine/full drapes/gowns/gloves utilized - right IJ vein visualized with ultrasound - Vessel accessed under ultrasound guidance with return of nonpulsatile blood. A guidewire was passed into vessel and confirmed in vessel with ultrasound. 1 attempt was made to access vessel. Vessel was dilated and cathetor was passed over wire into vessel. All ports demonstrated good blood return and flushed. Catheter was sutured to site and dressing applied Adequate hemostasis was achieved, EBL <3 cc No immediate complications noted, patient tolerated procedure well. CXR pending for confirmation Dao Logan MD Bench Press Operator (electronically signed)
[2017-07-22] MEDS ORDERED: Furosemide IV* 100 MG in NS 0.9% 100 ML* 90 ML IV SCH (16:30)
--- NOTE | 2017-07-22 16:59 | RAD ---
INDICATION: Status post central line placement COMPARISON: Chest x-ray dated July 22, 2017 TECHNIQUE: Single AP portable view of the chest was obtained. FINDINGS: Image quality is compromised due to the relative inferiority of a portable chest x-ray. There is been interval placement of a right neck central line with the tip terminating at the superior vena cava. Again seen is mild cardiomegaly and coarse calcification overlying the arch of the aorta. There is patchy densities obscuring the bilateral lungs with appearance of vascular congestion. There is density obscuring the right lung base that is improved when compared to the previous chest x-ray. IMPRESSION: 1. Interval placement of a right neck central line with the tip terminating at the superior vena cava. 2. Appearance of cardiogenic pulmonary edema is similar to the previous chest x-ray.
[2017-07-22] MEDS ORDERED: Vancomycin per Pharmacy* NOTE FOLLOW UP SCH (19:00)
[2017-07-22 19:19] LABS: Urine Appearance Cloudy; Urine Blood 2+ (Negative); Urine Color Yellow; Urine Ketones Negative (Negative); Urine Protein 1+(30 mg/dL) (Negative); Urine Urobilinogen Negative (Negative)
[2017-07-23] MEDS: Furosemide IV* 100 MG in NS 0.9% 100 ML* 90 ML IV SCH ×3 (00:20→14:20)
--- NOTE | 2017-07-23 00:50 | PN ---
PROGRESS NOTE: DATE OF VISIT: 07/22/17 HISTORY: Mr. Hinson actually feels somewhat better today. He says he is sleeping better. He is eating okay. He states he does not have much of an appetite, but he has no nausea and he is taking nutrition well. He denies abdominal pain. He denies orthopnea. He mentions that his legs were three times swollen a couple of weeks ago. He denies abdominal pain. Of significance , his renal function had been improving nicely. Last week, his creatinine had fallen. Now, over the weekend, his creatinine has went back up again. At the same time, he has had a significant elevation in his transaminases. His weight is actually up a couple of kilograms since admission. His blood pressure is 122 /53 with a pulse of 54, respiratory rate of 20. The chest is surprisingly clear. The heart revealed a regular rhythm. I could not hear any murmurs, which is surprising considering he has no significant mitral valvular disease. The abdomen is soft and nontender. I could not feel the liver margin. He had 2+ edema to his legs. His white count is 12.3, hemoglobin of 9.6, platelet count of 254,000. Sodium of 127; potassium 5.5; total CO2 14, he was 24 on the 07/21/17; chloride of 96; BUN 76; creatinine 8.6. His creatinine has gotten down to 1.52 on 07/18/17. Calcium 8.5, AST 1399, ALT 1111. With this significant change in his renal function and in his level of metabolic acidosis together with his elevated transaminases, one has to consider the possibility of significant ischemia with shock liver. Obviously, a cardiac cause would be the most likely. I reviewed the situation with Dr. Lopez and he was able to identify that the ejection fraction we had here in the hospital is significantly less than what was found in [place] when the patient was in the hospital there a few weeks ago. Clearly, this is quite concerning. At the present time, we do not have a need for dialysis. However, it would be a good idea to buffer his metabolic acidosis, which should help out with his hyperkalemia. In this setting, sodium carbonate orally would be a good choice and I would not use Bicitra because of the inability to metabolize citrate to bicarbonate. I have discussed the case at length with Dr. Lopez. [id number]/[facility] #: [id number] [facility] HOSPITALBrian
[2017-07-23] MEDS: Cefepime(*) 1 GM in D5W 50 ML BAG* 50 ML IVPB SCH (05:46)
[2017-07-23] MEDS: Sodium Bicarbonate (ANTACID)* 650 MG TAB PO SCH ×2 (05:47→15:08)
[2017-07-23] MEDS: Heparin VIAL(*) 5000 UNITS/ML VIAL (FIVE THOUSAND) SUBCUT SCH ×2 (05:48→15:08)
[2017-07-23 06:19] LABS: Hematocrit 25 % (42-52); Hemoglobin 8.5 g/dl (14.0-18.0); Mean Corpuscular HGB Conc 34 g/dl (31-36); Mean Corpuscular Hemoglobin 33 pg (27-31); Mean Corpuscular Volume 98 fL (80-94); Mean Platelet Volume 9 um3 (7.4-10.4); Platelet Count 197 10^3/ul (150-450); Red Blood Count 2.55 10^6/ul (4.0-5.4); Red Cell Distribution Width 23 % (10.5-15); White Blood Count 10.6 10^3/ul (3.5-10.8)
[2017-07-23 06:23] LABS: EGFR Non-African American 18.4 (>60)
[2017-07-23] MEDS: Aspirin Low Dose CHEW TAB* 81 MG PO SCH (09:01)
[2017-07-23] MEDS: Omeprazole CAP* 20 MG PO SCH (09:01)
[2017-07-23] MEDS: Atorvastatin* 20 MG TAB PO SCH (09:01)
[2017-07-23] MEDS: Insulin LISPRO* 1 UNITS UNIT SUBCUT SCH ×5 (09:01→17:09)
[2017-07-23] MEDS: Folic Acid TAB* 1 MG PO SCH (09:01)
[2017-07-23] MEDS ORDERED: Metolazone TAB* 5 MG PO ONE (09:36)
--- NOTE | 2017-07-23 09:39 | PN ---
Progress Note - Progress Note Date of Service: 07/23/17 Note: Progress Note -- Critical Care 24 hour events: -on oximask 10L, mild tachypnea still but comfortable, answering questions -there is some labored resp still -on 2.5, lasix infusion 10mg/hr -made some urine, but not negative yet Tele: NSR Vitals: Vital Signs Temp 98.8 F 07/23/17 09:01 Pulse 104 07/23/17 09:01 Resp 45 07/23/17 09:01 BP 107/54 07/23/17 09:00 Pulse Ox 97 07/23/17 09:01 Intake & Output 07/22/17 07/23/17 07/23/17 18:59 06:59 18:59 Intake Total 570 782 Output Total 100 1075 Balance 470 -293 Weight 170 lb 10.205 oz Intake: IV Fluids 484 NS (0.9%) 484 Medicated IV 298 DOBUTAMINE 131 LASIX 167 Oral 570 Output: Urine 100 Tang 1075 O2/Vent: oximask 10 Infusions: 2.5, lasix 10mg/hr Current Medications: Aspirin (Aspirin Low Dose Tab*) 81 mg PO DAILY [facility] Last Admin: 07/23/17 09:01 Dose: 81 mg Atorvastatin Calcium (Lipitor*) 20 mg PO DAILY [facility] Last Admin: 07/23/17 09:01 Dose: 20 mg Dextrose (D50w Syringe 50 Ml*) 25 gm IV PUSH ONCE PRN PRN Reason: FS < 60 Dextrose (D50w Syringe 50 Ml*) 12.5 gm IV PUSH .FOR FS < 60 - SS PRN PRN Reason: FS < 60 Folic Acid (Folvite Tab*) 1 mg PO DAILY [facility] Last Admin: 07/23/17 09:01 Dose: 1 mg Heparin Sodium (Porcine) (Heparin Vial(*)) 5,000 units SUBCUT Q8HR [facility] Last Admin: 07/23/17 05:48 Dose: 5,000 units Dobutamine HCl/Dextrose (Dobutamine 2000 Mcg/Ml Ivpremx*) 500 mg in 250 mls @ 5.783 mls/hr IV .Initial Rate AMALIA; 2.5 MCG/KG/MIN PRN Reason: Protocol Last Admin: 07/22/17 14:29 Dose: 5.783 mls/hr Furosemide 100 mg/ Sodium (Chloride) 100 mls @ 15 mls/hr IV Q10H [facility] PRN Reason: 15 MG/HR Insulin Human Lispro (Humalog*) 0 units SUBCUT AC AMALIA PRN Reason: Protocol Last Admin: 07/23/17 09:01 Dose: Not Given Insulin Human Lispro (Humalog*) 0 units SUBCUT AC [facility] PRN Reason: Protocol Last Admin: 07/23/17 09:01 Dose: Not Given Omeprazole (Prilosec Cap*) 20 mg PO DAILY [facility] Last Admin: 07/23/17 09:01 Dose: 20 mg Sodium Bicarbonate (Sodium Bicarbonate (Antacid)*) 650 mg PO Q8HR [facility] Last Admin: 07/23/17 05:47 Dose: 650 mg Physical Exam: General: awake, alert, mild tachypnea, no diaphoresis Head: normocephalic, atraumatic HEENT: no pallor, no icterus, moist mucous membranes Neck: soft, supple, + jvd, no stridor CVS: tachy, regular, no murmur Resp: bilateral air entry, exp rhonchi+, no rhales, no wheeze, no acc muscle use Abdomen: soft, nontender, nondistended, bowel sounds present Ext: pulses+, warm, 2+ edema b/l LE Skin: intact, no breakdown, no dryness Neuro: awake, alert, orientedx3, moving all extremities, no gross focal deficit Labs: Laboratory Results - last 24 hr 07/22/17 07/22/17 07/22/17 09:04 09:04 11:10 WBC RBC Hgb Hct MCV MCH MCHC RDW Plt Count MPV VBG pH VBG pCO2 VBG pO2 VBG HCO3 VBG O2 Saturation VBG Base Excess Sodium 127 L Potassium 5.5 H Chloride 96 L Carbon Dioxide 14 L* Anion Gap 17 H BUN 76 H Creatinine 2.82 H Est GFR ( Amer) 28.2 Est GFR (Non-Af Amer) 22.0 BUN/Creatinine Ratio 27.0 H Glucose 71 POC Glucose (mg/dL) Lactic Acid 4.5 H* Calcium 8.5 L Magnesium Total Bilirubin 2.50 H AST 1519 H ALT 1240 H Alkaline Phosphatase 134 H B-Natriuretic Peptide 1844 H Total Protein 7.0 Albumin 3.0 L Globulin 4.0 Albumin/Globulin Ratio 0.8 L Urine Color Urine Appearance Urine pH Ur Specific Huslia Urine Protein Urine Ketones Urine Blood Urine Nitrate Urine Bilirubin Urine Urobilinogen Ur Leukocyte Esterase Urine WBC (Auto) Urine RBC (Auto) Urine Bacteria Urine Glucose Random Vancomycin 28.0 07/22/17 07/22/17 07/22/17 11:55 16:15 16:38 WBC RBC Hgb Hct MCV MCH MCHC RDW Plt Count MPV VBG pH VBG pCO2 VBG pO2 VBG HCO3 VBG O2 Saturation VBG Base Excess Sodium Potassium Chloride Carbon Dioxide Anion Gap BUN Creatinine Est GFR ( Amer) Est GFR (Non-Af Amer) BUN/Creatinine Ratio Glucose POC Glucose (mg/dL) 87 221 H Lactic Acid 1.3 Calcium Magnesium Total Bilirubin AST ALT Alkaline Phosphatase B-Natriuretic Peptide Total Protein Albumin Globulin Albumin/Globulin Ratio Urine Color Urine Appearance Urine pH Ur Specific Hus[place] Urine Protein Urine Ketones Urine Blood Urine Nitrate Urine Bilirubin Urine Urobilinogen Ur Leukocyte Esterase Urine WBC (Auto) Urine RBC (Auto) Urine Bacteria Urine Glucose Random Vancomycin 07/22/17 07/22/17 07/22/17 16:50 17:10 22:20 WBC RBC Hgb Hct MCV MCH MCHC RDW Plt Count MPV VBG pH 7.26 L VBG pCO2 57 H VBG pO2 35 VBG HCO3 23.1 L VBG O2 Saturation 65.7 L VBG Base Excess -1.7 L Sodium Potassium Chloride Carbon Dioxide Anion Gap BUN Creatinine Est GFR ( Amer) Est GFR (Non-Af Amer) BUN/Creatinine Ratio Glucose POC Glucose (mg/dL) Lactic Acid 1.0 Calcium Magnesium Total Bilirubin AST ALT Alkaline Phosphatase B-Natriuretic Peptide Total Protein Albumin Globulin Albumin/Globulin Ratio Urine Color Yellow Urine Appearance Cloudy Urine pH 5.0 Ur Specific Huslia 1.010 Urine Protein 1+(30 mg/dl) H Urine Ketones Negative Urine Blood 2+ H Urine Nitrate Negative Urine Bilirubin Negative Urine Urobilinogen Negative Ur Leukocyte Esterase Negative Urine WBC (Auto) Trace(0-5/hpf) Urine RBC (Auto) Absent Urine Bacteria Absent Urine Glucose Negative Random Vancomycin 07/23/17 07/23/17 07/23/17 06:00 06:00 06:00 WBC 10.6 RBC 2.55 L Hgb 8.5 L Hct 25 L MCV 98 H MCH 33 H MCHC 34 RDW 23 H Plt Count 197 MPV 9 VBG pH VBG pCO2 VBG pO2 VBG HCO3 VBG O2 Saturation VBG Base Excess Sodium 130 L Potassium 5.0 Chloride 96 L Carbon Dioxide 23 Anion Gap 11 BUN 78 H Creatinine 3.29 H Est GFR ( Amer) 23.6 Est GFR (Non-Af Amer) 18.4 BUN/Creatinine Ratio 23.7 H Glucose 187 H POC Glucose (mg/dL) Lactic Acid 1.6 Calcium 8.3 L Magnesium 2.0 Total Bilirubin 2.70 H AST 1243 H ALT 1126 H Alkaline Phosphatase 109 H B-Natriuretic Peptide Total Protein 6.5 Albumin 2.8 L Globulin 3.7 Albumin/Globulin Ratio 0.8 L Urine Color Urine Appearance Urine pH Ur Specific Hus[place] Urine Protein Urine Ketones Urine Blood Urine Nitrate Urine Bilirubin Urine Urobilinogen Ur Leukocyte Esterase Urine WBC (Auto) Urine RBC (Auto) Urine Bacteria Urine Glucose Random Vancomycin 07/23/17 06:15 WBC RBC Hgb Hct MCV MCH MCHC RDW Plt Count MPV VBG pH VBG pCO2 VBG pO2 VBG HCO3 VBG O2 Saturation VBG Base Excess Sodium Potassium Chloride Carbon Dioxide Anion Gap BUN Creatinine Est GFR ( Amer) Est GFR (Non-Af Amer) BUN/Creatinine Ratio Glucose POC Glucose (mg/dL) Lactic Acid Calcium Magnesium Total Bilirubin AST ALT Alkaline Phosphatase B-Natriuretic Peptide Total Protein Albumin Globulin Albumin/Globulin Ratio Urine Color Urine Appearance Urine pH Ur Specific Hus[place] Urine Protein Urine Ketones Urine Blood Urine Nitrate Urine Bilirubin Urine Urobilinogen Ur Leukocyte Esterase Urine WBC (Auto) Urine RBC (Auto) Urine Bacteria Urine Glucose Random Vancomycin 26.4 Imaging: cxr 07/22 - increased right effusion, increased atelectasis of right base, right upper lobe infiltrate+ cxr 07/23 - mild congestion but appears better than yesterday; Right lower lobe atelectasis Assessment: 77y M w/pmhx HTN, DM, moderate-severe MR, mod-severe , Mod-severe LV systolic dysfunction/Ischemic CMP, CKD; recently admitted to ICU in outside hospital with pneumonia, discharged. Admitted here for worsening shortness of breath again. Admitted with elevated wbc, AMANDA on CKD, elevated lfts, signs of possible volume overload, with BNP >3000, LA 11, consistent with likely cardiogenic shock +/- septic shock. Improving on floor but upgraded to ICU for increasing LFTs, Cr and LA. CXR with some increased RLL density again, Edema in LE+. -Shock, more so cardiogenic in appearance -AMANDA -Shock liver -Acute on chronic decompensated LV systolic heart failure -less likely pneumonia appearing now -acute hypoxic respiratory failure -Moderate-severe Mitral regurgitation -Mod-severe -right upper lobe infiltrate, resolving pneumonia from prior? -CAD -Ischemic CMP Plan: Neuro- stable, alert. delirium prec. CVS- BP improved to 100-120s, mild tachy. cont 2.5. urine output not amazing on lasix 10mg/hour, need neg balance. increase to 15mg/hour. give metolazone 5mg po x1 dose now. LA normalized. CVP 13-15, last mixed venous 65%. severe MR and mod-severe in settings of mod-sevre LV systolic dysfunction. unknown coronary status but anterior qwaves and history of AR, anterior wall hypokinesis, severe LV systolic dysfunction. given clinical and lab findings, suspicion is higher for cardiogenic shock. Will discuss with son about transfer to larger center for coronary and w/u for valvular intervention if that is what patient/son wants. Resp- on oximask 10L, tachypnea+ but not requiring NIV. Increasing diuretics. CXR similar as prior. No sig infiltrate, on day 8 of abx, d/c today. bronchodilators prn. ID- afebrile. wbc 10. day 9 of vanco/cefepime, no clear infection, d/c abx. no growth to date. GI- cardiac diet. shock liver, likely from hepatic congestion vs poor forward flow. LFTs down today. check coag panel today Renal- AMANDA on CKD. Cr further elevated. K 5.0. no acidosis. on oral bicarb to buffer and help hyperkalemia. increase lasix to 15mg/hr, add metolazone 5mg po x1 today. volume overload+, LE edema+. CVP 13-15. tang+ Heme- anemia, 8-9s. plt okay. not on AC Endo- fingersticks as needed. Musculsk- pressure ulcer proph Wounds- none Nutrition- cardiac diet DVT prophylaxis: scds, heparin sq GI prophylaxis: ppi Central Line: right ij 07/22 Arterial Line: - Tang Cathetor: yes Disposition: ICU Code Status: full code Total Critical Care time is 45 minutes, excluding procedures/teaching Dao Logan MD Dust Brush Assembler (Electronically Signed)
[2017-07-23] MEDS ORDERED: Albuterol 2.5 MG/3 ML NEB.SOL* (0.083%) INH PRN ×2 (09:52→11:10)
[2017-07-23 10:03] LABS: INR 1.37 (0.77-1.02)
--- NOTE | 2017-07-23 10:19 | RAD ---
INDICATION: Evaluate vascular congestion COMPARISON: Most recent comparison chest x-rays from the previous day dated July 22, 2017 TECHNIQUE: Single AP portable view of the chest was obtained. FINDINGS: Image quality is compromised due to the relative inferiority of a portable chest x-ray. Right neck central line is unchanged in position terminating at the superior vena cava. There is persistent mild cardiomegaly. There is density obscuring the mid-level right lung and right lung base. Pulmonary vasculature appears engorged and indistinct. Density overlying the lateral right upper lung is similar to the previous day chest x-ray. Visualized bones are normal for the patient's age. IMPRESSION: Worsening density obscuring the right lung could be worsening pleural effusion and/or consolidation.
--- NOTE | 2017-07-23 16:04 | DS ---
Discharge Summary Patient Name: Kevon Hinson Date of Admission: 07/15/2017 Date of Discharge: 07/23/2017 Attending: Dr Dao Logan (Site Superintendent) Consultants: Dr Chris Hamilton (Cardiology), Dr Franklyn Alba (Nephrology), Dr Marquise Lopez/Dr Seb Lopez (Hospitalist) Admitting Diagnoses: 1) Septic Shock 2) Acute Hypoxic Respiratory Failure 3) Acute Kidney Injury Discharge Diagnoses: 1) Cardiogenic Shock 2) Acute Kidney Injury 3) Shock Liver 4) Severe Mitral Regurgitation 5) Moderate- Severe Aortic Stenosis 6) Acute on chronic decompensated LV systolic heart failure 7) Coronary Artery Disease 8) Pneumonia 9) Acute Hypoxic Respiratory Failure HPI/Hospital Course: 77y M pmhx of HTN, DM, moderate-severe MR, mod-severe , Mod-severe LV systolic dysfunction/Ischemic CMP, CKD; recently admitted to ICU in outside hospital with pneumonia, discharged. Admitted here for worsening shortness of breath again. Admitted with elevated wbc, AMANDA on CKD, elevated lfts, signs of possible volume overload, with BNP >3000, LA 11, consistent with likely cardiogenic shock +/- septic shock. Found to have RUL density/infiltrate on Chest CT. CXR demonstrated possible infiltrate as well as a small-mod Right effusion. He was diuresed while admitted, treated for pneumonia with IV abx cefepime and vancomycin, with no growth on cultures. He has remained afebrile, wbc has been downtrending. LFTs and Renal function were improving and then started to decline again. Patient was upgraded to ICU again for declining renal function, shock liver, acute hypoxic respiratory failure. No new significant infectious process was identified. He was started on dobutamine and Lasix infusion for pulmonary congestion and peripheral edema. Repeat ECHO imaging demonstrated the same severe valvular heart disease of MR and , as well as severe LV systolic dysfunction. Based on his current status, knowing there is active LV systolic dysfunction, with unknown coronary status and severe multivalve disease decision for transfer to a center with availability for cardiac surgery as well as percutaneous mitral clip and TAVR options was decided. He will need a further coronary angiogram to determine if status of coronary arteries. Patient also has Right sided infiltrates thought to be resolving pneumonia but at this point unclear if this is resolving infiltrates or possible another malignant process. He would need a bronchoscopy and evaluation of this Right upper lobe infiltrative process. Antibiotics were stopped after 8 days with no growth noted and no new progression of infiltrates. Procedures/Imaging: Chest xray, Computer Tomography of Chest, Transthoracic echocardiography Laboratory/Data: in chart Discharge Medications: To be discharged with dobutamine 2.5 mcg/kg/min, Lasix 15mg/hr; as well as aspirin, Lipitor, heparin sq, omeprazole, sodium bicarb oral. Diet: diabetic/cardiac diet Activity: bedrest for now Condition upon discharge: critical, but stable Disposition: for transfer to [facility] under CTS Code Status: full code Total Discharge time >30minutes Dao Logan MD Site Superintendent (Electronically Signed)
[2017-07-23 18:34] VITALS: BP 110/68
[2017-07-24] MEDS ORDERED: Vancomycin Random Level* NOTE FOLLOW UP ONE (06:00)
== END 2017-07-23 20:49 | disposition short-term general hospital (02) | DRG 291 ==
LOC: ED 14:25 → ICU 18:12 → MEDTELE 07-16 21:29 → ICU 07-22 13:44
PROVIDERS: ADMIT Internal Medicine; ATTEND Internal Medicine
PROC: 5A09357 Assistance with Respiratory Ventilation, Less than 24 Consecutive Hours, Continuous Positive Airway Pressure (ICD-10-PCS; 2017-07-15)
PROC: 05HM33Z Insertion of Infusion Device into Right Internal Jugular Vein, Percutaneous Approach (ICD-10-PCS; principal; 2017-07-22)
PROC: B543ZZA Ultrasonography of Right Jugular Veins, Guidance (ICD-10-PCS; 2017-07-22)
DX: I13.0 Hypertensive heart and chronic kidney disease with heart failure and stage 1 through stage 4 chronic kidney disease, or unspecified chronic kidney disease (principal); J96.01 Acute respiratory failure with hypoxia; K72.00 Acute and subacute hepatic failure without coma; R57.0 Cardiogenic shock; E44.0 Moderate protein-calorie malnutrition; D68.9 Coagulation defect, unspecified; J18.9 Pneumonia, unspecified organism; N17.9 Acute kidney failure, unspecified; E11.22 Type 2 diabetes mellitus with diabetic chronic kidney disease; I50.43 Acute on chronic combined systolic (congestive) and diastolic (congestive) heart failure; E87.2 Acidosis; J44.0 Chronic obstructive pulmonary disease with (acute) lower respiratory infection; I08.0 Rheumatic disorders of both mitral and aortic valves; I25.10 Atherosclerotic heart disease of native coronary artery without angina pectoris; I25.5 Ischemic cardiomyopathy; N18.9 Chronic kidney disease, unspecified; I25.2 Old myocardial infarction; E78.5 Hyperlipidemia, unspecified; C67.9 Malignant neoplasm of bladder, unspecified; Z82.49 Family history of ischemic heart disease and other diseases of the circulatory system; Z83.3 Family history of diabetes mellitus; R74.8 Abnormal levels of other serum enzymes; Z87.891 Personal history of nicotine dependence; E87.5 Hyperkalemia; I27.20 Pulmonary hypertension, unspecified; E11.65 Type 2 diabetes mellitus with hyperglycemia; R74.0 Nonspecific elevation of levels of transaminase and lactic acid dehydrogenase [LDH]; D63.1 Anemia in chronic kidney disease
CPT/HCPCS: 36415; 36600; 71045; 71046; 71250; 74176; 80048; 80053; 80076; 80202; 81003; 81015; 82272; 82565; 82570; 82607; 82728; 82746; 82803; 82947; 83036; 83540; 83550; 83605; 83735; 83880; 84100; 84132; 84484; 84520; 84540; 85025; 85027; 85379; 85610; 85730; 86140; 87040; 87086; 87502; 87641; 93005; 93306; 93970; 94640; 94660; 94668; 94760; 99285; A9270-GY; J0610; J0692; J1250; J1644; J1940; J3370; J7060